=== PATIENT | female | born 1930 | race Caucasian/White ===

== ENCOUNTER 2016-04-30 11:12 | Inpatient (IN) | payer OTHER ==
[~2016-04-30] VITALS: Ht 149.9 cm; Wt 61.7 kg
[~2016-04-30 11:12] MED LIST: AMLODIPINE BESY10 M1 PO; ASPIRIN EC81 M1 PO; CRANBERRY400 M2 PO; HYDRALAZINE HC100 M1 PO; LOPRESSOR 25MG25 MG PO; LOSARTAN POTASS25 M1 PO; SIMVASTATIN20 M1 PO
--- NOTE | 2016-04-30 11:30 | ED GENERAL ADULT ---
History of Present Illness General Chief Complaint: Dyspnea (COPD, CHF, Other) Stated Complaint: BIBA FOR SOB Source: patient, family, old records Exam Limitations: no limitations Vital Signs & Intake/Output Vital Signs & Intake/Output Vital Signs Date Time Temp Pulse Resp B/P Pulse O2 O2 Flow FiO2 Ox Delivery Rate 04/30 1746 96.6 31 20 108/56 93 Nasal 4.0L Cannula 04/30 1655 32 22 116/54 95 Nasal 4.0L Cannula 04/30 1614 96.6 34 22 112/56 93 Nasal 4.0L Cannula 04/30 1543 122/62 04/30 1508 32 120/60 04/30 1440 33 16 78/50 04/30 1410 32 22 108/42 96 Room Air 04/30 1307 36 112/48 04/30 1205 32 16 132/54 99 Room Air 04/30 1130 98.4 32 16 145/74 97 Nasal 2.0L Cannula Allergies Coded Allergies: NO KNOWN ALLERGIES (02/20/12) Reconcile Medications Amlodipine Besylate 10 MG TABLET 1 TAB PO DAILY HEART/BP (Reported) Aspirin (Ecotrin*) 81 MG TABLET.DR 1 TAB PO DAILY HEART/BLOOD (Reported) Cranberry 400 MG CAPSULE 2 TAB PO DAILY SUPPLEMENT (Reported) Escitalopram Oxalate (Lexapro) 5 MG TABLET 5 MG PO DAILY ANXIETY (Reported) Hydralazine HCl 100 MG TABLET 1 TAB PO BID HEART/BP (Reported) Losartan Potassium 25 MG TABLET 1 TAB PO DAILY HEART/BP (Reported) Metoprolol Tartrate 25 MG TABLET 1 TAB PO BID HEART/BP (Reported) Simvastatin (Zocor*) 20 MG TABLET 1 TAB PO DAILY CHOLESTEROL (Reported) Triage Note: BROUGHT TO ED BY CAR, WITH FAMILY, C/ DIZZINESS, WEAKNESS, POOR APPETITE X A FEW DAYS. DENIES CHEST PAIN, SLIGHT SOB TODAY. PALE, Triage Nurses Notes Reviewed? yes HPI: Patient brought in by her grandchildren for increasing weakness and fatigue. Patient states that over the past 2 days she has been feeling worsening lightheaded. Patient denies any chest pain or shortness of breath. Patient denies any dysuria. Patient states that her symptoms worsen when she is up and moving. Patient states that yesterday she lost her balance and fell but was able to catch herself on the counter and did not fall to the ground. Patient denies hitting her head and there was no loss of consciousness Past History Travel History Traveled to [place] past 21 day No Medical History Any Pertinent Medical History? 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 No Review of Systems Review of Systems Constitutional: Reports: no symptoms. EENTM: Reports: no symptoms. Respiratory: Reports: no symptoms. Cardiovascular: Reports: no symptoms. GI: Reports: no symptoms. Genitourinary: Reports: no symptoms. Musculoskeletal: Reports: no symptoms. Skin: Reports: no symptoms. Neurological/Psychological: Reports: see HPI. Hematologic/Endocrine: Reports: no symptoms. Immunologic/Allergic: Reports: no symptoms. All Other Systems: Reviewed and Negative Physical Exam Physical Exam General Appearance: well developed/nourished, alert, awake, anxious, moderate distress Head: atraumatic, normal appearance Eyes: Bilateral: PERRL, EOMI. Ears, Nose, Throat: normal pharynx Neck: normal inspection, supple, full range of motion Respiratory: normal breath sounds, chest non-tender, no respiratory distress, lungs clear Cardiovascular: bradycardia Gastrointestinal: normal bowel sounds, soft, non-tender Back: normal inspection, normal range of motion Extremities: normal inspection, normal capillary refill, normal range of motion, no edema Neurologic/Psych: no motor/sensory deficits, awake, alert, oriented x 3, normal mood/affect Skin: intact, normal color, warm/dry Lymphatic: no anterior cervical thalia Core Measures ACS in differential dx? Yes CVA/TIA Diagnosis: No Severe Sepsis Present: No Septic Shock Present: No Progress Differential Diagnoses I considered the following diagnoses in my evaluation of the patient: [AMI, electrolyte abnormality, third-degree heart block, beta chance overdose] Plan of Care: Orders Procedure Date/time Status Admit to inpatient 04/30 1822 Active Restraint- Medical 04/30 1452 Active [place], Insertion/Removal/Asses 04/30 1347 Active CULTURE,URINE 04/30 1347 Active Add-on Test (ER Only) 04/30 1247 Active THYROID STIMULATING HORMONE 04/30 1130 Complete Telemetry/Aquaculture Farm Manager 04/30 1128 Active TROPONIN LEVEL 04/30 1128 Complete MAGNESIUM 04/30 1128 Complete COMPREHENSIVE METABOLIC PANEL 04/30 1128 Complete CBC WITHOUT DIFFERENTIAL 04/30 1128 Complete EKG 04/30 1116 Active Laboratory Tests 04/30/16 1130: Anion Gap 13, Estimated GFR 19 L, BUN/Creatinine Ratio 25.0, Glucose 118 H, Calcium 10.4 H, Magnesium 1.4 L, Total Bilirubin 1.0, AST 64 H, ALT 71 H, Alkaline Phosphatase 98, Troponin I 0.06, Total Protein 6.9, Albumin 3.7, Globulin 3.2, Albumin/Globulin Ratio 1.2, TSH 4.300 H, CBC w Diff NO MAN DIFF REQ, RBC 3.83 L, MCV 92.8, MCH 30.7, RDW 14.2, MPV 8.4, Gran % 74.8, Lymphocytes % 12.3 L, Monocytes % 11.0 H, Eosinophils % 0.5, Basophils % 1.4, Absolute Granulocytes 6.0, Absolute Lymphocytes 1.0 L, Absolute Monocytes 0.9 H, Absolute Eosinophils 0, Absolute Basophils 0.1, PUBS MCHC 33.1 Microbiology 04/30 1415 URINE ROUT: Urine Culture - RECD Diagnostic Imaging: Viewed by Me: Radiology Read. Discussed w/RAD: Radiology Read. CXR Impression: PATIENT: BLAKE BUCKLEY PRESENT AGE: 86 PATIENT ACCOUNT NO: [id number] : 29 LOCATION: [facility] ORDERING PHYSICIAN: RESHMA ESTRADA MD SERVICE DATE: 04/30/16 EXAM TYPE: RAD - XRY-PORTABLE CHEST XRAY EXAMINATION: PORTABLE CHEST 1 VIEW CLINICAL INFORMATION: CHEST PAIN. COMPARISON: 01/11/2015. TECHNIQUE: Portable frontal view of the chest was obtained. FINDINGS: Lungs are hyperinflated with chronic appearing reticular markings seen bilaterally. No superimposed focal infiltrate, effusion, or pneumothorax. There is mild central vascular prominence but no overt edema. Cardiac silhouette remains enlarged, similar to the prior study. Patient is status post sternotomy and CABG. Degenerative changes seen in the spine and shoulders. Prominent vascular calcification seen in the neck. IMPRESSION: Central vascular prominence but no overt edema. No acute process seen otherwise when compared to the prior study. DICTATED BY: DAKOTA DIEGO MD DATE/TIME DICTATED:04/30/161227 EVENT PROMOTER:JUAN DATE/TIME TRANSCRIBED:04/30/161227 CONFIDENTIAL, DO NOT COPY WITHOUT APPROPRIATE AUTHORIZATION. <Electronically signed in Other Vendor System> SIGNED BY: DAKOTA DIEGO MD 04/30/16 1238 Initial ED EK DEGREE HEART BLOCK Prior EKG: changed Rhythm Strip: BRADYCARDIA Comments: Dr. Kay notified. Called again when she began to have sinus pauses. He is coming down to evaluate. Dr Kay at bedside. Dr. Gonzáles will be in at 7 PM to put in a permanent pacemaker. Patient continues to have episodic sinus pauses lasting 610 seconds. Patient comes out of them on her own. At this point the patient needs better served staying here in the emergency department and then going to the operating room from here. Departure Departure Disposition: STILL A PATIENT Condition: Critical Clinical Impression Primary Impression: Bradycardia Secondary Impressions: Acute renal failure, Hypomagnesemia Referrals: JAYASHREE SHOEMAKER MD (PCP/Family) Departure Forms: Customer Survey General Discharge Information Admission Note Spoke With: MILAD KAY MD Documentation of Exam: Documentation of any treatments & extenuating circumstances including Concerns Regarding Discharge (functional status, medication knowledge or non-compliance, living conditions, etc.) that warrant an admission rather than observation: [ICU admission, pacer pads on, atropine at bedside, patient will need to go the OR for a pacemaker. If patient becomes more Symptomatic she may require transvenous pacing to bridge her until she has a permanent pacemaker.] Critical Care Note Critical Care Note Critical Care Time: mins: (120 MIN)
--- NOTE | 2016-04-30 11:37 | NUR ---
LABS DRAWN AND SENT BY THIS MST BLUE, SST X2, LAV X2, PINK, HOLDER
[2016-04-30 11:39] LABS: ABSOLUTE BASOPHIL COUNT 0.1 /CUMM (0.0-0.2); ABSOLUTE EOSINOPHIL COUNT 0 /CUMM (0.0-0.7); ABSOLUTE MONOCYTE COUNT 0.9 /CUMM (0.10-0.60); BASOPHIL % 1.4 % (0.0-2.0); EOSINOPHIL % 0.5 % (0-5); GRANULOCYTE % 74.8 % (42.2-75.2); HEMATOCRIT 35.5 % (37-47); MEAN CORPUSCULAR HGB 30.7 PG (27.0-31.0); MEAN CORPUSCULAR HGB CONC 33.1 G/DL (33.0-37.0); MEAN CORPUSCULAR VOLUME 92.8 FL (81.0-99.0); MEAN PLATELET VOLUME 8.4 FL (7.4-10.4); PLATELET COUNT 204 /CUMM (130-400); RBC DISTRIBUTION WIDTH 14.2 % (11.5-14.5); RED BLOOD CELL CT 3.83 /CUMM (4.20-5.40)
--- NOTE | 2016-04-30 11:39 | NUR ---
BROUGHT TO ED BY CAR, WITH FAMILY, C/ DIZZINESS, WEAKNESS, POOR APPETITE X A FEW DAYS. DENIES CHEST PAIN, SLIGHT SOB TODAY. PALE, PLACED ON MONITOR, RATE 25-40, 3RD DEGREE HEART BLOCK WITH OCCASIONAL PVC. EKG DONE ON ARRIVAL.
--- NOTE | 2016-04-30 12:04 | NUR ---
DR. KAY AT BEDSIDE, PACER PADS PLACED ON PT.
--- NOTE | 2016-04-30 12:38 | RADIOLOGY REPORT ---
EXAMINATION: PORTABLE CHEST 1 VIEW CLINICAL INFORMATION: CHEST PAIN. COMPARISON: 01/11/2015. TECHNIQUE: Portable frontal view of the chest was obtained. FINDINGS: Lungs are hyperinflated with chronic appearing reticular markings seen bilaterally. No superimposed focal infiltrate, effusion, or pneumothorax. There is mild central vascular prominence but no overt edema. Cardiac silhouette remains enlarged, similar to the prior study. Patient is status post sternotomy and CABG. Degenerative changes seen in the spine and shoulders. Prominent vascular calcification seen in the neck. IMPRESSION: Central vascular prominence but no overt edema. No acute process seen otherwise when compared to the prior study.
--- NOTE | 2016-04-30 12:44 | NUR ---
C/O PAIN IN R UPPER SHOULDER SHOULDER, BASE OF NECK. ICE PACK TO AREA.
--- NOTE | 2016-04-30 13:15 | NUR ---
HAD EPSIODE OF INCREASED WEAKNESS WTIH EYES ROLLED BACK, SINUS PAUSE NOTED ON MONITOR (4-5 SECONDS).
--- NOTE | 2016-04-30 14:05 | NUR ---
MEDICATED FOR SHOULDER AND UPPER BACK PAIN WITH TYLENOL 650 MG PO.
--- NOTE | 2016-04-30 14:06 | NUR ---
VOMITED AFTER RECEIVING IV GLUCAGON, MEDICATED WITH ZOFRAN 4 MG IV.
--- NOTE | 2016-04-30 14:15 | NUR ---
DIGGS CATHETER INSERTED WITHOUT DIFFICULTY, DRAINING YELLOW URINE M (45 ML) UA, CULTURE SENT.
--- NOTE | 2016-04-30 14:27 | NUR ---
ANXIOUS, RESTLESS, C/O R FOOT CRAMPING. MEDICATED WITH ATIVAN .5 MG IV.
--- NOTE | 2016-04-30 14:40 | NUR ---
INCREASINGLY AGITATED, PULLING ON IV TUBING AND DIGGS. DR. ESTRADA TO BEDSIDE. # [address] ESTRADA. NS BOLUS RUNNING.
--- NOTE | 2016-04-30 14:45 | NUR ---
MEDICATED WITH ATROPINE .5 MG IV AND GLUCAGON 1 MG IV. RESTLESS WITH CONFUSED CONVERSATION.
--- NOTE | 2016-04-30 15:04 | NUR ---
SOFT RESTRAINTS APPLIED DUE TO AGITATION AND PULLING ON LINES.
[2016-04-30] MEDS ORDERED: LEXAPRO5 M1 PO (15:36)
--- NOTE | 2016-04-30 15:52 | Cons- Cardiology ---
General Information and HPI Consulting Request Date of Consult: 04/30/16 Requested By: Dr. Tamayo Reason for Consult: Third degree heart block History of Present Illness: The patient is an 86-year-old female with history of coronary artery disease, status post CABG, hypertension, and renal insufficiency. She is followed in the office by Dr. Gonzáles. She was brought to the hospital by her grandchildren for increasing weakness and fatigue 2 days. She notes intermittent lightheadedness over the past few days. The symptoms are worse when she is an relating. She had some dizziness and presyncope yesterday, however she has not had any syncope or loss of consciousness. No shortness of breath. No palpitations. No nausea or vomiting. No diaphoresis. Allergies/Medications Allergies: Coded Allergies: NO KNOWN ALLERGIES (02/20/12) Home Med List: Amlodipine Besylate (Amlodipine) 10 MG TAB 1 TAB PO DAILY HEART (Reported) Aspirin (Ecotrin) 81 MG ECT 1 TAB PO DAILY HEART HEALTH (Reported) Cranberry 400 MG TAB 2 TAB PO DAILY SUPLLEMENT (Reported) Escitalopram Oxalate (Lexapro) 5 MG TABLET 5 MG PO DAILY ANXIETY (Reported) Hydralazine Hydrochloride (Hydralazine) 100 MG TAB 1 TAB PO BID HEART ( Reported) Losartan Potassium 25 MG TAB 1 TAB PO DAILY HEART (Reported) Metoprolol Tartrate (Lopressor) 25 MG TAB 1 TAB PO BID HEART (Reported) Simvastatin 20 MG TAB 1 TAB PO DAILY CHOLESTEROL (Reported) Review of Systems Review of Systems: No rash. No tremor. No fever. No chills. All other systems were reviewed, and were noted to be negative. 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 Surgical History Surgical History: non-contributory Family History Relations & Conditions If Any: BROTHER Coronary artery disease Psychosocial History ETOH Use: denies use Illicit Drug Use: denies illicit drug use Exam & Diagnostic Data Vital Signs and I&O Vital Signs Date Time Temp Pulse Resp B/P Pulse O2 O2 Flow FiO2 Ox Delivery Rate 04/30 1543 122/62 04/30 1508 32 120/60 04/30 1440 33 16 78/50 04/30 1410 32 22 108/42 96 Room Air 04/30 1307 36 112/48 04/30 1205 32 16 132/54 99 Room Air 04/30 1130 98.4 32 16 145/74 97 Nasal 2.0L Cannula Intake & Output 04/30 1600 04/30 0800 04/30 0000 04/29 1600 04/29 0800 04/29 0000 Intake Total 1010 Output Total Balance 1010 Intake, IV 1010 Patient 110 lb Weight Physical Exam: Gen: The patient is in no acute distress HEENT: Normal nose, ears, and oropharynx. Pupils equal bilaterally. Conjunctiva normal. Neck: Supple with no JVD, no masses, and no thyromegaly Lungs: Clear to auscultation with normal respiratory effort Heart: Irregular, bradycardic, S1, S2, 2/6 systolic murmur. No peripheral edema , 2+ pulses in the lower extremities bilaterally Abdomen: Soft, nontender, no masses. No hepatomegaly. No splenomegaly Extremities: No clubbing or cyanosis. Normal muscle strength in the upper and lower extremities Skin: Normal skin turgor with no skin ulcers or lesions noted. Neuro: Cranial nerves intact. Sensation intact Psych: Alert and oriented 3 with appropriate affect Labs/Kyle Results: Laboratory Tests 04/30 1130 Chemistry Sodium (137 - 145 mmol/L) 134 L Potassium (3.5 - 5.1 mmol/L) 4.3 Chloride (98 - 107 mmol/L) 101 Carbon Dioxide (22 - 30 mmol/L) 19 L Anion Gap (5 - 16) 13 BUN (7 - 17 mg/dL) 60 H Creatinine (0.5 - 1.0 mg/dL) 2.4 H Estimated GFR (>60 ml/min) 19 L BUN/Creatinine Ratio (7 - 25 %) 25.0 Glucose (65 - 99 mg/dL) 118 H Calcium (8.4 - 10.2 mg/dL) 10.4 H Magnesium (1.6 - 2.3 mg/dL) 1.4 L Total Bilirubin (0.2 - 1.3 mg/dL) 1.0 AST (14 - 36 U/L) 64 H ALT (9 - 52 U/L) 71 H Alkaline Phosphatase (<127 U/L) 98 Troponin I (< 0.11 ng/ml) 0.06 Total Protein (6.3 - 8.2 g/dL) 6.9 Albumin (3.5 - 5.0 g/dL) 3.7 Globulin (1.9 - 4.2 gm/dL) 3.2 Albumin/Globulin Ratio (1.1 - 2.2 %) 1.2 TSH (0.270 - 4.200 uIU/mL) 4.300 H Hematology CBC w Diff NO MAN DIFF REQ WBC (4.8 - 10.8 /CUMM) 8.0 RBC (4.20 - 5.40 /CUMM) 3.83 L Hgb (12.0 - 16.0 G/DL) 11.8 L Hct (37 - 47 %) 35.5 L MCV (81.0 - 99.0 FL) 92.8 MCH (27.0 - 31.0 PG) 30.7 RDW (11.5 - 14.5 %) 14.2 Plt Count (130 - 400 /CUMM) 204 MPV (7.4 - 10.4 FL) 8.4 Gran % (42.2 - 75.2 %) 74.8 Lymphocytes % (20.5 - 51.1 %) 12.3 L Monocytes % (1.7 - 9.3 %) 11.0 H Eosinophils % (0 - 5 %) 0.5 Basophils % (0.0 - 2.0 %) 1.4 Absolute Granulocytes (1.4 - 6.5 /CUMM) 6.0 Absolute Lymphocytes (1.2 - 3.4 /CUMM) 1.0 L Absolute Monocytes (0.10 - 0.60 /CUMM) 0.9 H Absolute Eosinophils (0.0 - 0.7 /CUMM) 0 Absolute Basophils (0.0 - 0.2 /CUMM) 0.1 PUBS MCHC (33.0 - 37.0 G/DL) 33.1 Diagnostic Data EKG Results EKG tracing is independently reviewed, and reveals third degree heart block with heart rate in the 30s CXR Results Central vascular prominence but no overt edema. No acute process seen otherwise when compared to the prior study. Other Results Echocardiogram 11/09/09: Assessment/Plan Assessment/Plan The patient is an 86-year-old female with history of CAD, status post CABG, hypertension, renal insufficiency who presents with recent fatigue and lightheadedness. She is found to be in third-degree AV block. Of note, she takes metoprolol, and she took her last dose of metoprolol this morning. She is hemodynamically stable and she currently denies any lightheadedness. She reports that she is currently feeling well other than back pain. Plan: * Glucagon to reverse the effect of metoprolol * Admit to ICU * Monitor closely with transcutaneous pacing pads applied. If symptomatic. A cardiac develops, then continues pacing will be initiated * Nothing by mouth * Permanent pacemaker to be placed later today by Dr. Gonzáles. Consult Acknowledgment - Thank you for your consult request.
--- NOTE | 2016-04-30 16:02 | NUR ---
PT UNABLE TO STAY STILL FOR CAT SCAN, POSTPONE CT PER MD NATALIE AT THIS TIME.
--- NOTE | 2016-04-30 16:14 | NUR ---
PT REMAINES IN MEDICAL RESTRAINTS DUE TO AGITATION, CONFUSION, RESTLESSNESS. 2 NEW IV ESTABLISHED- LH G22, RH G20. NS INFUSING. MANUAL BP 112/56 AT THIS TIME. O2 TITRATED UP TO 4L NC O2SAT 93%, MD NATALIE MADE AWARE. SITTER AT BEDSIDE.
[2016-04-30] MEDS ORDERED: METOPROLOL TART25 M1 PO (16:42)
[2016-04-30] MEDS ORDERED: ZOCOR20 M1 PO (16:42)
--- NOTE | 2016-04-30 17:02 | NUR ---
RESTRAINTS CHEKED, CIRCULATION AND SKIN WNL, NO RESP DISTRESS NOTED. PT RESTLESS, CONFUSED. SITTER AND FAMILY AT BEDSIDE.
--- NOTE | 2016-04-30 17:49 | NUR ---
PT STUDENT AT [facility] FOR RE-EVALUATION. BP 108/56 MANUALLY, NATALIE. AWARE, 4TH LITER OF NS INFUSING PER EMAR. PT REMAINES IN MEDICAL SOFR RESTRAINT FOR RESTLESSNESS. SKIN AND CIRCULATION CHECKED, NO RESP DISTRESS. FAMILY AND SITTER AT BEDSIDE.
--- NOTE | 2016-04-30 18:29 | History & Physical ---
ROCIO ZIMMERMAN,[facility] 04/30/16 1829: General Information and HPI Source of Information: family Exam Limitations: unable to give history History of Present Illness: This is a 86-year-old female with past medical history of hypertension, hyperlipidemia, coronary artery disease status post triple bypass brought into the ER by her son for complaints of dizziness and weakness for the past couple of days. Patient was sedated and unable to give history she was taken from the second MrJasmin, As per patient son, she has been in her usual state of health upuntil last sunday. She lives by herself and at baseline is fully functional, doing her daily chores by herself w/o any difficulty. She cooks, cleans etc by herself w/o any assistance. As per son, he visits her almost everyday, last sunday when he visited her, she was complaining of nausea, vomiting and diarrhea>> yesterday nausea, vomiting subsided and she was able to eat half a sandwich but she continued to have diarrhea, today she was complaining of abdominal discomfort and getting sweaty and having chills, extreme fatigue and diziness and thats when family decided to bring her to ER for further evaluation. Son also mentioned that his mother mentioned that she tripped but was able to control her body by holding on to the counter, after which son says her right shoulder has been sore. She has never smoked, no alcohol consumption, no illicit drug abuse. She follows Dr. Gonzáles as her batch freezer, Dr. Garcia as her primary care physician, and Randall Rojo MD as her teacher lip reading. Last visit with Dr. Gonzáles was 3 weeks ago and was told that everything was normal. Allergies/Medications Allergies: Coded Allergies: NO KNOWN ALLERGIES (02/20/12) Home Med list Amlodipine Besylate 10 MG TABLET 1 TAB PO DAILY HEART/BP (Reported) Aspirin (Ecotrin*) 81 MG TABLET. 1 TAB PO DAILY HEART/BLOOD (Reported) Cranberry 400 MG CAPSULE 2 TAB PO DAILY SUPPLEMENT (Reported) Escitalopram Oxalate (Lexapro) 5 MG TABLET 5 MG PO DAILY ANXIETY (Reported) Hydralazine HCl 100 MG TABLET 1 TAB PO BID HEART/BP (Reported) Losartan Potassium 25 MG TABLET 1 TAB PO DAILY HEART/BP (Reported) Metoprolol Tartrate 25 MG TABLET 1 TAB PO BID HEART/BP (Reported) Simvastatin (Zocor*) 20 MG TABLET 1 TAB PO DAILY CHOLESTEROL (Reported) Compliance With Home Meds: GOOD Past History Travel History Traveled to [place] past 21 day No Medical History Neurological: NONE EENT: NONE Cardiovascular: hypertension, hyperlipidemia, TRIPLE BYPASS Respiratory: NONE Gastrointestinal: NONE Hepatic: NONE Renal: NONE Musculoskeletal: NONE Psychiatric: NONE Endocrine: NONE Blood Disorders: NONE Cancer(s): NONE HYDRAMATIC SPECIALIST/Reproductive: NONE Surgical History Surgical History: non-contributory Past Family/Social History Family History Relations & Conditions if any BROTHER Coronary artery disease Psychosocial History Where do you live? Home Who Do You Live With? self Services at Home: None Primary Language: Persian Smoking Status: Never Smoked ETOH Use: denies use Illicit Drug Use: denies illicit drug use Functional Ability ADLs Independent: dressing, eating, toileting, bathing. Ambulation: independent IADLs Independent: shopping, housework, finances, food prep, telephone, transportation , medication admin. Review of Systems Review of Systems Constitutional: Reports: see HPI. Exam & Diagnostic Data Last 24 Hrs of Vital Signs/I&O Vital Signs Date Time Temp Pulse Resp B/P Pulse O2 O2 Flow FiO2 Ox Delivery Rate 04/30 1920 96.4 31 28 110/54 93 Nasal 4.0L Cannula 04/30 1852 30 28 116/56 93 Nasal 4.0L Cannula 04/30 1823 96.6 34 26 120/58 94 Nasal 4.0L Cannula 04/30 1746 96.6 31 24 108/56 93 Nasal 4.0L Cannula 04/30 1655 32 22 116/54 95 Nasal 4.0L Cannula 04/30 1614 96.6 34 22 112/56 93 Nasal 4.0L Cannula 04/30 1543 122/62 04/30 1508 32 120/60 04/30 1440 33 16 78/50 04/30 1410 32 22 108/42 96 Room Air 04/30 1307 36 112/48 04/30 1205 32 16 132/54 99 Room Air 04/30 1130 98.4 32 16 145/74 97 Nasal 2.0L Cannula Intake & Output 04/30 1600 04/30 0800 04/30 0000 Intake Total 1010 Output Total Balance 1010 Intake, IV 1010 Patient 49.895 kg Weight Physical Exam General Appearance sedated Cardiovascular bradycardia Lungs Clear to Auscultation Abdomen Normal Bowel Sounds, Soft Neurological unable to follow commands Extremities No Clubbing, No Cyanosis, No Edema Last 24 Hrs of Labs/Kyle: Laboratory Tests 04/30/16 1931: PT Pending, INR Pending, APTT Pending 04/30/16 1130: Anion Gap 13, Estimated GFR 19 L, BUN/Creatinine Ratio 25.0, Glucose 118 H, Calcium 10.4 H, Magnesium 1.4 L, Total Bilirubin 1.0, AST 64 H, ALT 71 H, Alkaline Phosphatase 98, Troponin I 0.06, Total Protein 6.9, Albumin 3.7, Globulin 3.2, Albumin/Globulin Ratio 1.2, TSH 4.300 H, CBC w Diff NO MAN DIFF REQ, RBC 3.83 L, MCV 92.8, MCH 30.7, RDW 14.2, MPV 8.4, Gran % 74.8, Lymphocytes % 12.3 L, Monocytes % 11.0 H, Eosinophils % 0.5, Basophils % 1.4, Absolute Granulocytes 6.0, Absolute Lymphocytes 1.0 L, Absolute Monocytes 0.9 H, Absolute Eosinophils 0, Absolute Basophils 0.1, PUBS MCHC 33.1 Microbiology 04/30 1415 URINE ROUT: Urine Culture - RECD Diagnostic Data EKG Results EKG tracing is independently reviewed, and reveals third degree heart block with heart rate in the 30s CXR Results Central vascular prominence but no overt edema. No acute process seen otherwise when compared to the prior study. Other Results Echocardiogram 11/09/09: Assessment/Plan Assessment: This is a 86-year-old female with past medical history of hypertension, hyperlipidemia, coronary artery disease status post triple bypass brought into the ER by her son for complaints of dizziness and weakness for the past couple of days. Titers upon presentation temperature 98.4, blood 32, his GERD rate 16, blood pressure 145/74, pulse ox 97 on 2 L cannula oxygen. Pertinent labs H&H 11.8 and 35.5, H&H 60 and 2.4, initial EKG showed third- degree heart block following bradycardia, patient continued to have episodic sinus positive lasting 6-10 seconds though patient was able to come out of 10 by her own. Patient admitted to ICU and monitor for the following conditions: Third degree heart block: Continous cardiac monitoring Patient to get permanent pacemaker by . Will get PT/PTT prior surgical procedure Psych meds held till patient more awake. Cardiology on board, will follow recs. Hypertension: Will hold off blood pressure medications as blood pressure towards lower side, will restart when BP stable. Hyperlipidemia: Will cont home dose of simvastatin. Acute Kidney injury: Likely secondary to dehydration, creatnine level 2.4, baseline 1.4. IV hydration , will follow up repeat labs DVT prophylaxis Patient is FULL CODE As Ranked By This Provider Problem List: 1. Generalized weakness 2. Bradycardia 3. Acute renal failure Core Measures/Miscellaneous Acute Coronary Syndrome ACS Diagnosis: No Cerebrovascular Accident CVA/TIA Diagnosis: No Congestive Heart Failure CHF Diagnosis: No Venous Thromboembolism VTE Risk Factors: Acute medical illness, Age > 40 No [facility] VTE prophylaxis d/t: No contraindications No VTE Pharm Prophylaxis d/t: No contraindications VTE Diagnosis: No VTE Type: NONE VTE Confirmed by (Test): NONE Severe Sepsis Severe Sepsis Present: No Septic Shock Septic Shock Present: No Miscellaneous Documentation Attending Case Discussed With: Nivia Primary Care Physician: SAHARA [facility]MANA.[facility] Patient sees these Specialists Dr. Gonzáles Match Marker Configuration Manager Level of Patient Care: Critical Care (CRI) ZAC RODRIGUEZ 04/30/16 1573: General Information and HPI MD Statement: I have seen and personally examined BLAKE BUCKLEY and documented this H&P. The patient is a 86 year old F who presented with a patient stated chief complaint of []. Resident Review Statement Resident Statement: examined this patient Other Findings: Patient is 86 year old female with PMH of hypertension, CAD, status post bypass surgery, renal insufficency was brought by family with chief complain of dizziness and lightheadedness. Per Son, patient lives alone and is fairly independent in her ADLs. She started to complain of lightheadedness and dizziness 3 weeks ago. Nicolas the son who is also the POA calls her every day to see how she has been doing. Patient has been in her usual state of health until04/28 when she developed diarrhea and vomiting. It resolved the next day however, she continued to feel dizzy and could not get up from her bed this morning. Patient on examination was lethargic (she got ativen 0.5 mg IV earlier) so much of the hstory was obtained by the son at bedside. Patient remained bradycardiac with a transcutaneous pacer pads. Labs and vitals as above Imaging done in hospital CXR 04/30 Central vascular prominence but no overt edema. No acute process seen otherwise when compared to the prior study. Problem list 1. third degree heart block 2. Hypertension 3. hyperlipidemia 4. Renal insufficency Assessment and Plan Plan is that patient will get permanent pacemaker today by dr. Gonzáles. Patient came in with a heart rate of 32. BP 110/54, will hold her antihypertensives now, consider restaring in am if blood pressure tolerates. Patient has JUNIOR on CKD, please consult nephro ( dr. Saucedo) in am Will start her on gentle hydration today at 75 cc NS/ hr DVT ppx Mechanical ALPS, will avoid SC heprin for now as he is due to get pacemaker, please recheck with attending after the procedure Patient is full code. The Son Nicolas is the POA. RAHUL ZIMMERMAN,MILAD 05/01/16 0055: Attending Review Statement Attending Statement Attending MD Statement: examined this patient, discuss w/resident/PA/[employer]UST[employer]MIC[employer] SUPERVISOR, agreed w/resident/PA/INDUSTRI[employer]MICALS SUPERVISOR, discussed with family, reviewed EMR data (avail), discussed with nursing, reviewed images, amended to note Attending Assessment/Plan: Agree with house staff note. See consult not for further details. Date of service 05/31/16
--- NOTE | 2016-04-30 18:37 | NUR ---
MD SALOME WILL BE IN AT 2000 BY RN CO PILOT.
--- NOTE | 2016-04-30 19:00 | NUR ---
HOUSE STAFF AT BEDSIDE FOR PT EVAL.
--- NOTE | 2016-04-30 19:32 | NUR ---
BLOOD DRAWN AND SNET TO LAB 1BLUE
--- NOTE | 2016-04-30 19:39 | NUR ---
DR MCMAHON AT BEDSIDE FOR EVAL.
[2016-04-30 19:57] LABS: PT 12.8 SEC (9.4-12.5); PTT 24 SEC (25-37)
[2016-04-30 21:50] LABS: ABSOLUTE BASOPHIL COUNT 0.1 /CUMM (0.0-0.2); ABSOLUTE EOSINOPHIL COUNT 0 /CUMM (0.0-0.7); ABSOLUTE GRANULOCYTE CT 9.3 /CUMM (1.4-6.5); ABSOLUTE LYMPH COUNT 0.7 /CUMM (1.2-3.4); ABSOLUTE MONOCYTE COUNT 0.7 /CUMM (0.10-0.60); BASOPHIL % 0.7 % (0.0-2.0); EOSINOPHIL % 0.1 % (0-5); GRANULOCYTE % 86.4 % (42.2-75.2); MEAN CORPUSCULAR HGB 30.3 PG (27.0-31.0); MEAN CORPUSCULAR HGB CONC 32.2 G/DL (33.0-37.0); MEAN CORPUSCULAR VOLUME 94.2 FL (81.0-99.0); MEAN PLATELET VOLUME 8.6 FL (7.4-10.4); PLATELET COUNT 150 /CUMM (130-400); RBC DISTRIBUTION WIDTH 13.9 % (11.5-14.5); WHITE BLOOD CELL COUNT 10.7 /CUMM (4.8-10.8)
[2016-05-01 01:00] VITALS: BP 128/60
--- NOTE | 2016-05-01 01:06 | RADIOLOGY REPORT ---
EXAMINATION: XR PORTABLE CHEST CLINICAL INFORMATION: Aspiration. ET tube placement. COMPARISON: None TECHNIQUE: Portable AP view of the chest was obtained. FINDINGS: The tip of endotracheal tube is located 5.1 cm above the elvis. Multiple cardiac leads overlie chest. There is a 2 chamber pacing device in the right pectoral region with leads terminating within the right atrium and right ventricle. Sternotomy wires are noted. There are interstitial opacities involving both lungs with a perihilar and lower lobe predominant distribution. There are ill-defined bibasilar opacities that may represent a manifestation of atelectasis or consolidative disease. The cardiac silhouette is enlarged but unchanged from prior imaging. Upper media cells contours are stable. No acute osseous finding. IMPRESSION: Endotracheal tube terminates 5.1 cm above the elvis. Interstitial pulmonary edema. Bibasilar opacities may represent a manifestation of atelectasis and/or consolidative disease. A right pectoral pacemaker has been placed.
--- NOTE | 2016-05-01 03:16 | NUR ---
04/30 2305 PATIENT RECEIVED FROM OR INTO CRCU #17 FOR PACU CARE- SEE PACU SHEET 05/01 0100 PATIENT AROUSABLE TO NAME, TRACKS WITH GAZE, PUPILS EQUAL AT 5MM AND REACTIVE TO LIGHT, SCLERAL EDEMA PRESENT, SKIN PALE, WARM AND DRY, SUPERVISOR LAUNDRY PACED RHYTHYM, HEART RATE 70'S TO 80/MIN, NO ECTOPY NOTED, RIGHT CHEST DRESSING WITH BOTTOM THIRD DARK RED DRAINAGE, LEFT CHEST DRESSING CLEAN, DRY AND INTACT, ETT IN PLACE AND TO VENTILATOR WITH FIO2 60%, BREATHE SOUNDS CLEAR, ETS PRN WITH SMALL AMTS DARK BROWNISH SECRETIONS OBTAINED, OGT TO LOW INTERMITTENT WALL SUCTION, ABDOMEN DISTENDED BUT SOFT, NO AUDIBLE BS, LEFT RADIAL ADAIR INTACT- GOOD ARTERIAL WAVEFORM, DIGGS TO GRAVITY DRAINAGE, PATIENT SEENN TO MOVE ALL 4 EXTREMITIES BUT DOES NOT DO SO ON COMMAND, FREQUENTLY ORIENTED TO SURROUNDINGS/CIRCUMSTANCES 022 PATIENT INCREASINGLY AWAKE- FIGHTING VENTILATOR AND CAUSING O2 SAT TO DECREASE TO 90%, PULLING AT RESTRAINTS, VERBAL REASSURANCES INEFFETIVE- DR PARIS NOTIFIED AND PATIENT TO RECEIVE ONE TIME ATIVAN DOSE
[2016-05-01 05:05] LABS: ABSOLUTE BASOPHIL COUNT 0 /CUMM (0.0-0.2); ABSOLUTE EOSINOPHIL COUNT 0 /CUMM (0.0-0.7); ABSOLUTE GRANULOCYTE CT 13.1 /CUMM (1.4-6.5); ABSOLUTE LYMPH COUNT 0.3 /CUMM (1.2-3.4); ABSOLUTE MONOCYTE COUNT 0.9 /CUMM (0.10-0.60); BASOPHIL % 0.1 % (0.0-2.0); EOSINOPHIL % 0 % (0-5); GRANULOCYTE % 91.7 % (42.2-75.2); HEMATOCRIT 32.2 % (37-47); MEAN CORPUSCULAR HGB 30.8 PG (27.0-31.0); MEAN CORPUSCULAR HGB CONC 32.9 G/DL (33.0-37.0); MEAN CORPUSCULAR VOLUME 93.6 FL (81.0-99.0); MEAN PLATELET VOLUME 8.7 FL (7.4-10.4); PLATELET COUNT 159 /CUMM (130-400); RBC DISTRIBUTION WIDTH 13.5 % (11.5-14.5); RED BLOOD CELL CT 3.45 /CUMM (4.20-5.40); WHITE BLOOD CELL COUNT 14.3 /CUMM (4.8-10.8)
--- NOTE | 2016-05-01 06:22 | NUR ---
VS STABLE, PACED RHYTHYM WITH INFREQUENBT PVC NOTED, PATIENT MORE AWAKE, MOVING ALL 4 EXTREMITIES WITH EQUAL STRENGTH- FOLLOWS SIMPLE COMMANDS AT TIMES, SLEEPING IN NAPS, AWAITING AM MD ROUNDS
--- NOTE | 2016-05-01 07:17 | PN- Resident CRCU ---
Subjective HPI/CRCU Issues: Patient seen and examined this morning. She is lying in bed in no acute distress, intubated, over night went to OR for pacemaker placement last night, where she coded, apparetly she had a transient episode of prolonged bradycardia and tranisent episode of cardio-pulmonary arrest, she was thus intubated in OR. Patient started on Unasyn, sputum cultures ordered, holding off on her blood pressure medication for now. Objective Vital Signs & I&O Last 8 Hrs of Vitals and I&O: Laboratory Tests 05/01/16 1010: pH 7.48 H, pCO2 30 L, pO2 72 L, HCO3 22, ABG O2 Sat (Measured) 94.0 L, P-50 (Temp Corrected) N, Carboxyhemoglobin 0.1 L, O2 Concentration % 40%, Respiration Rate 24, O2 Delivery Method VENT, Vent Mode CPAP/PSV TRIAL, Expiratory Pressure 5, Tidal Volume 323, Pressure Support 6, Phlebotomy Draw Site LEFT A-LINE 05/01/16 0948: Lactic Acid 3.2 H 05/01/16 0650: Lactic Acid 3.5 H 05/01/16 0415: Anion Gap 14, Estimated GFR 21 L, BUN/Creatinine Ratio 23.2, Calcium 8.6, Phosphorus 4.4, Magnesium 1.8, CBC w Diff MAN DIFF ORDERED, RBC 3.45 L, MCV 93.6, MCH 30.8, RDW 13.5, MPV 8.7, Gran % 91.7 H, Lymphocytes % 2.1 L, Monocytes % 6.1, Eosinophils % 0, Basophils % 0.1, Absolute Granulocytes 13.1 H , Segmented Neutrophils 83 H, Band Neutrophils 9 H, Absolute Lymphocytes 0.3 L, Lymphocytes 3 L, Monocytes 5, Absolute Monocytes 0.9 H, Absolute Eosinophils 0, Absolute Basophils 0, Platelet Estimate ADEQUATE, Polychromasia 1 +, Poikilocytosis 1+, Ovalocytes 1+, PUBS MCHC 32.9 L, Fld Total RBCs Counted 100 05/01/16 0055: pH 7.36, pCO2 26 L, pO2 72 L, HCO3 14 L, ABG O2 Sat (Measured) 93.0 L, P-50 (Temp Corrected) N, Carboxyhemoglobin 0.3 L, O2 Concentration % .60, Respiration Rate 20, O2 Delivery Method VENT, Vent Mode A/C, Expiratory Pressure 5, Tidal Volume 500, Phlebotomy Draw Site [place] 04/30/16 2340: Anion Gap 19 H, Estimated GFR 21 L, Glucose 126 H, Lactic Acid 9.4 H, Calcium 9.0, Phosphorus 5.9 H, Magnesium 1.9, Total Bilirubin 1.1, AST 269 H, ALT 175 H, Albumin 3.0 L 04/30/165: pH 7.15 *L, pCO2 45, pO2 255 H, HCO3 15 L, ABG O2 Sat (Measured) 98.0, Carboxyhemoglobin 0.3 L, O2 Concentration % 100%, O2 Delivery Method OR/ANES, Phlebotomy Draw Site [place] 04/30/16 2144: CBC w Diff NO MAN DIFF REQ, RBC 3.30 L, MCV 94.2, MCH 30.3, RDW 13.9, MPV 8.6, Gran % 86.4 H, Lymphocytes % 6.4 L, Monocytes % 6.4, Eosinophils % 0.1, Basophils % 0.7, Absolute Granulocytes 9.3 H, Absolute Lymphocytes 0.7 L, Absolute Monocytes 0.7 H, Absolute Eosinophils 0, Absolute Basophils 0.1, PUBS MCHC 32.2 L 04/30/162139: pH 7.02 *L, pCO2 44, pO2 227 H, HCO3 11 L, ABG O2 Sat (Measured) 98.0, Carboxyhemoglobin 0.3 L, O2 Concentration % 100%, O2 Delivery Method OR/ANES, Phlebotomy Draw Site [place] 04/30/16 1931: PT 12.8 H, INR 1.22 H, APTT 24 L Microbiology 05/01 938 LOWER RESP: Respiratory Culture - COLB 05/01 938 LOWER RESP: Gram Stain - COLB 05/01 934 LOWER RESP: Respiratory Culture - CAN Cancelled: DUPLICATE 05/01 934 LOWER RESP: Gram Stain - CAN Cancelled: DUPLICATE 05/01 44 LOWER RESP: Respiratory Culture - RES 05/01 44 LOWER RESP: Gram Stain - RES 05/01 29 UPPER RESP: Surveillance Culture - RECD 05/01 29 GI: Surveillance Culture - RECD 04/30 1415 URINE ROUT: Urine Culture - RES Vital Signs Date Time Temp Pulse Resp B/P Pulse O2 O2 Flow FiO2 Ox Delivery Rate 05/01 1200 93 Nasal 4.0L Cannula 05/01 0916 40 05/01 0801 45 05/01 0800 98 Ventilator 45% 05/01 0800 98.7 65 30 112/60 98 Ventilator 45% 05/01 0625 60 05/01 0400 95 Ventilator 60% 05/01 0318 60 05/01 0100 96.6 80 20 128/60 94 Ventilator 60% 05/01 0100 94 Ventilator 60% 05/01 0034 50 05/01 0033 100 04/30 2320 100 04/30 1920 96.4 31 28 110/54 93 Nasal 4.0L Cannula 04/30 1852 30 28 116/56 93 Nasal 4.0L Cannula 04/30 1823 96.6 34 26 120/58 94 Nasal 4.0L Cannula 04/30 1746 96.6 31 24 108/56 93 Nasal 4.0L Cannula 04/30 1655 32 22 116/54 95 Nasal 4.0L Cannula 04/30 1614 96.6 34 22 112/56 93 Nasal 4.0L Cannula 04/30 1543 122/62 04/30 1508 32 120/60 04/30 1440 33 16 78/50 04/30 1410 32 22 108/42 96 Room Air Intake & Output 05/01 1600 05/01 0800 05/01 0000 Intake Total 361 Output Total 305 Balance 56 Intake, IV 361 Number 0 Bowel Movements Output, 35 Gastric Drainage Output, Urine 270 Patient 62.199 kg Weight Exam General Appearance: well developed/nourished Head: atraumatic Respiratory: normal breath sounds Cardiovascular: regular rate/rhythm Gastrointestinal: normal bowel sounds Extremities: normal inspection, no edema Current Medications: Current Medications Sig/Brandon Start time Last Medication Dose Route Stop Time Status Admin Acetaminophen 650 MG Q8P PRN 04/30 2014 AC PO Ampicillin Sodium/ 1,500 MG Q12 05/01 1000 AC Sulbactam Sodium IV Sodium Chloride 100 ML Ampicillin Sodium/ 1,500 MG Q6 05/01 0843 DC 05/01 Sulbactam Sodium IV 0850 Sodium Chloride 100 ML Ampicillin Sodium/ 1,500 MG Q12 04/30 2330 DC 05/01 Sulbactam Sodium IV 0146 Sodium Chloride 100 ML Atropine Sulfate 0.5 MG ONE ONE 04/30 1445 DC 04/30 IV 04/30 1446 1445 Dextrose/Sodium 1,000 ML Q20H 05/01 1000 AC 05/01 Chloride IV 0957 Furosemide 40 MG ONCE ONE 05/01 0845 DC 05/01 IV 05/01 0846 0852 Glucagon 0 .STK-MED ONE 04/30 1446 DC .ROUTE Glucagon 1 MG ONCE ONE 04/30 1445 DC 04/30 N/A 1 UNIT IV 04/30 1446 1445 Heparin Sodium 5,000 UNIT Q8 05/01 1400 AC 05/01 (Porcine) SC 1334 Lorazepam 1 MG ONCE ONE 05/01 0230 DC 05/01 IV 05/01 0231 0233 Lorazepam 0 .STK-MED ONE 04/30 1421 DC .ROUTE Lorazepam 0.5 MG ONCE ONE 04/30 1415 DC 04/30 IV 04/30 1416 1427 Magnesium Sulfate 1 GM Q2H 04/30 1230 DC 04/30 Dextrose/Water 100 ML IV 04/30 1629 1320 Ondansetron HCl 4 MG ONCE ONE 04/30 1400 DC 04/30 IV 04/30 1401 1350 Ondansetron HCl 0 .STK-MED ONE 04/30 1351 DC .ROUTE Pantoprazole Sodium 40 MG DAILY 05/01 1000 AC 05/01 IV 0852 Potassium Chloride 10 MEQ Q1H 05/01 0800 DC 05/01 IV 05/01 0901 0845 Sodium Chloride 1,000 ML Q13H 04/30 2015 DC 05/01 IV 0850 Sodium Chloride 1,000 ML BOLUS ONE 04/30 1800 DC 04/30 IV 04/30 1859 1749 Sodium Chloride 1,000 ML BOLUS ONE 04/30 1445 DC 04/30 IV 04/30 1544 1445 Sodium Chloride 1,000 ML ONCE ONE 04/30 1400 DC 04/30 IV 04/30 2039 1350 Antibiotics Antibiotic: unasyn Day #: 1 IV/PO? IV Impression/Plan Impression/Problem List Impression: This is a 86-year-old female with past medical history of hypertension, hyperlipidemia, coronary artery disease status post triple bypass brought into the ER by her son for complaints of dizziness and weakness for the past couple of days. Vitals upon presentation temperature 98.4, blood 32, his GERD rate 16, blood pressure 145/74, pulse ox 97 on 2 L cannula oxygen. Pertinent labs H&H 11.8 and 35.5, H&H 60 and 2.4, initial EKG showed third- degree heart block following bradycardia, patient continued to have episodic sinus positive lasting 6-10 seconds though patient was able to come out of 10 by her own. Patient admitted to ICU and monitor for the following conditions: Respiratory/CVS/Infectious disease: Acute respiratory failure leading to intubation in setting of Third degree heart block requiring pacemaker: Upon admission initial EKG showed third-degree heart block following bradycardia. She received glucagon to reverse effect of metoprolol. Went to OR for pacemaker placement last night, where she coded, apparetly she had a transient episode of prolonged bradycardia and tranisent episode of cardio- pulmonary arrest, she was thus intubated in OR. Details of event not available in chart as of now. Cardiology on board, will follow recs. Aspiration Pneumonia: Started on IV unasyn, will follow sputum and blood cx Hypertension: Will hold off blood pressure medications as blood pressure towards lower side, will restart when BP stable. Hyperlipidemia: Will cont home dose of simvastatin. Renal: Acute Kidney injury on CKD: Likely secondary to dehydration, creatnine level 2.4>>2.2, baseline 1.4. IV hydration , will follow up repeat labs. losartan on hold. DVT prophylaxis Patient is FULL CODE Problem List: 1. Acute renal failure 2. Bradycardia 3. Generalized weakness Pain Ratin Tomorrow's Labs & Rationales: icu budle cbc Plan DVT/Prophylaxis: pharmacological
[2016-05-01 08:00] VITALS: BP 112/60
--- NOTE | 2016-05-01 08:52 | RADIOLOGY REPORT ---
EXAMINATION:\H\ \N\XR INTRAOPERATIVE FLUOROSCOPY/CHEST CLINICAL INFORMATION: Pacemaker placement. COMPARISON: Chest x-ray dated 04/30/2016. TECHNIQUE: Intraoperative fluoroscopy was provided to Dr. Greenberg for the placement of a pacemaker in the operating room. FLUOROSCOPY TIME: 10 minutes 19 seconds. FINDINGS: Intraoperative fluoroscopy was provided and 5 spot films are submitted for review. Limited images demonstrate placement of a right atrial and right ventricular pacer lead. IMPRESSION: Dual-chamber pacemaker placement.
--- NOTE | 2016-05-01 09:05 | Cons- CRCU ---
General Information and HPI Consulting Request Date of Consult: 05/01/16 Requested By: Cardio History of Present Illness: This is a lady with history of hypertension, hyperlipidemia, coronary artery disease with previous CABG, chronic kidney disease, came in with hypotension and worsening renal insufficiency. Patient apparently was brought into the hospital yesterday with weakness and fatigue serum she was found to have third-degree heart block. From the emergency room she was initially treated with fluids and did probably receive glucagon for reversal of effects of metoprolol as she was on metoprolol. Subsequently she was brought into the operating room for a pacemaker. She was then intubated in the operating room and apparently there was a transient episode of prolonged bradycardia while in the operating room and hence the patient was intubated. Full details are not yet available in the chart at the time of this dictation. I'm not sure whether she received cardiac compressions. At this time when I saw her she was intubated and alert and awake and was following commands. She was making urine. She was having some yellow-green secretions being aspirated from her ET tube. There was some history suggestive of aspiration while she was getting intubated as well. Since she's been in the ICU there has been no evidence of fever and patient has been on 45% FiO2 with the O2 sat of 98-99% on assist control. Other history could not be obtained as patient was intubated sedated. SIGNIFICANT DATA chest x-ray showed bilateral pulmonary edema with bibasilar atelectasis Patient did have a CT of the chest few months ago which showed calcified lung nodule with very large hiatal hernia with mildly enlarged paratracheal lymph nodes. Blood work reviewed creatinine is 2.2 on admission it was 2.4 baseline appears to be 2.0, anion gap initially was 19 subsequently was 14 lactic acid was elevated early this morning but it's much improved since last night which was 9.4 magnesium was 1.8 liver enzymes were elevated TSH was 4.3 free T4 was 1.31. Allergies/Medications Allergies: Coded Allergies: NO KNOWN ALLERGIES (02/20/12) Home Med List: Amlodipine Besylate 10 MG TABLET 1 TAB PO DAILY HEART/BP (Reported) Aspirin (Ecotrin*) 81 MG TABLET.DR 1 TAB PO DAILY HEART/BLOOD (Reported) Cranberry 400 MG CAPSULE 2 TAB PO DAILY SUPPLEMENT (Reported) Escitalopram Oxalate (Lexapro) 5 MG TABLET 5 MG PO DAILY ANXIETY (Reported) Hydralazine HCl 100 MG TABLET 1 TAB PO BID HEART/BP (Reported) Losartan Potassium 25 MG TABLET 1 TAB PO DAILY HEART/BP (Reported) Metoprolol Tartrate 25 MG TABLET 1 TAB PO BID HEART/BP (Reported) Simvastatin (Zocor*) 20 MG TABLET 1 TAB PO DAILY CHOLESTEROL (Reported) Review of Systems Review of Systems Constitutional: Reports: see HPI. 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 Home Who Do You Live With? self Services at Home: None Primary Language: Guine[place] Smoking Status: Never Smoked ETOH Use: denies use Illicit Drug Use: denies illicit drug use Functional Ability ADLs Independent: dressing, eating, toileting, bathing. Ambulation: independent IADLs Independent: shopping, housework, finances, food prep, telephone, transportation , medication admin. Exam & Diagnostic Data Last 24 Hrs of Vital Signs/I&O Vital Signs Date Time Temp Pulse Resp B/P Pulse O2 O2 Flow FiO2 Ox Delivery Rate 05/01 0801 45 05/01 0800 98 Ventilator 45% 05/01 0800 98.7 65 30 112/60 98 Ventilator 45% 05/01 0625 60 05/01 0400 95 Ventilator 60% 05/01 0318 60 05/01 0100 96.6 80 20 128/60 94 Ventilator 60% 05/01 0100 94 Ventilator 60% 05/01 0034 50 05/01 0033 100 04/30 2320 100 04/30 1920 96.4 31 28 110/54 93 Nasal 4.0L Cannula 04/30 1852 30 28 116/56 93 Nasal 4.0L Cannula 04/30 1823 96.6 34 26 120/58 94 Nasal 4.0L Cannula 04/30 1746 96.6 31 24 108/56 93 Nasal 4.0L Cannula 04/30 1655 32 22 116/54 95 Nasal 4.0L Cannula 04/30 1614 96.6 34 22 112/56 93 Nasal 4.0L Cannula 04/30 1543 122/62 04/30 1508 32 120/60 04/30 1440 33 16 78/50 04/30 1410 32 22 108/42 96 Room Air 04/30 1307 36 112/48 04/30 1205 32 16 132/54 99 Room Air 04/30 1130 98.4 32 16 145/74 97 Nasal 2.0L Cannula Intake & Output 05/01 1600 05/01 0800 05/01 0000 Intake Total 361 Output Total 305 Balance 56 Intake, IV 361 Number 0 Bowel Movements Output, 35 Gastric Drainage Output, Urine 270 Patient 137 lb Weight Last 48 Hrs of Labs/Kyle: Laboratory Tests 05/01/16 0650: Lactic Acid 3.5 H 05/01/16 0415: Anion Gap 14, Estimated GFR 21 L, BUN/Creatinine Ratio 23.2, Calcium 8.6, Phosphorus 4.4, Magnesium 1.8, CBC w Diff MAN DIFF ORDERED, RBC 3.45 L, MCV 93.6, MCH 30.8, RDW 13.5, MPV 8.7, Gran % 91.7 H, Lymphocytes % 2.1 L, Monocytes % 6.1, Eosinophils % 0, Basophils % 0.1, Absolute Granulocytes 13.1 H , Segmented Neutrophils 83 H, Band Neutrophils 9 H, Absolute Lymphocytes 0.3 L, Lymphocytes 3 L, Monocytes 5, Absolute Monocytes 0.9 H, Absolute Eosinophils 0, Absolute Basophils 0, Platelet Estimate ADEQUATE, Polychromasia 1 +, Poikilocytosis 1+, Ovalocytes 1+, PUBS MCHC 32.9 L, Fld Total RBCs Counted 100 05/01/16 0055: pH 7.36, pCO2 26 L, pO2 72 L, HCO3 14 L, ABG O2 Sat (Measured) 93.0 L, P-50 (Temp Corrected) N, Carboxyhemoglobin 0.3 L, O2 Concentration % .60, Respiration Rate 20, O2 Delivery Method VENT, Vent Mode A/C, Expiratory Pressure 5, Tidal Volume 500, Phlebotomy Draw Site [place] 04/30/16 1090: Anion Gap 19 H, Estimated GFR 21 L, Glucose 126 H, Lactic Acid 9.4 H, Calcium 9.0, Phosphorus 5.9 H, Magnesium 1.9, Total Bilirubin 1.1, AST 269 H, ALT 175 H, Albumin 3.0 L 04/30/16 2215: pH 7.15 *L, pCO2 45, pO2 255 H, HCO3 15 L, ABG O2 Sat (Measured) 98.0, Carboxyhemoglobin 0.3 L, O2 Concentration % 100%, O2 Delivery Method OR/ANES, Phlebotomy Draw Site [place] 04/30/16 2144: CBC w Diff NO MAN DIFF REQ, RBC 3.30 L, MCV 94.2, MCH 30.3, RDW 13.9, MPV 8.6, Gran % 86.4 H, Lymphocytes % 6.4 L, Monocytes % 6.4, Eosinophils % 0.1, Basophils % 0.7, Absolute Granulocytes 9.3 H, Absolute Lymphocytes 0.7 L, Absolute Monocytes 0.7 H, Absolute Eosinophils 0, Absolute Basophils 0.1, PUBS MCHC 32.2 L 04/30/162139: pH 7.02 *L, pCO2 44, pO2 227 H, HCO3 11 L, ABG O2 Sat (Measured) 98.0, Carboxyhemoglobin 0.3 L, O2 Concentration % 100%, O2 Delivery Method OR/ANES, Phlebotomy Draw Site [place] 04/30/16 1931: PT 12.8 H, INR 1.22 H, APTT 24 L 04/30/16 1130: Anion Gap 13, Estimated GFR 19 L, BUN/Creatinine Ratio 25.0, Glucose 118 H, Calcium 10.4 H, Magnesium 1.4 L, Total Bilirubin 1.0, AST 64 H, ALT 71 H, Alkaline Phosphatase 98, Troponin I 0.06, Total Protein 6.9, Albumin 3.7, Globulin 3.2, Albumin/Globulin Ratio 1.2, TSH 4.300 H, CBC w Diff NO MAN DIFF REQ, RBC 3.83 L, MCV 92.8, MCH 30.7, RDW 14.2, MPV 8.4, Gran % 74.8, Lymphocytes % 12.3 L, Monocytes % 11.0 H, Eosinophils % 0.5, Basophils % 1.4, Absolute Granulocytes 6.0, Absolute Lymphocytes 1.0 L, Absolute Monocytes 0.9 H, Absolute Eosinophils 0, Absolute Basophils 0.1, PUBS MCHC 33.1 Assessment/Plan Impression/Plan: On physical exam Intubated ET tube in place Neck supple no JVD Chest decreased breath sounds with crackles heard Heart S1-S2 was heard Pacemaker incision site normal Abdominal exam soft bowel sounds were heard No significant edema Patient is alert awake and oriented 3 and moves all extremities unremarkable neuro exam so far IMPRESSION This is an elderly lady with history of hypertension chronic kidney disease ischemic heart with previous CABG, hyperlipidemia came into the emergency room with third-degree heart block subsequently he has had a permanent pacemaker. In the interim she has * Acute respiratory failure needed to be intubated after she had complete heart block with transient cardiopulmonary arrest. * Probable aspiration pneumonitis in a lady with very large hiatal hernia * Chronic kidney disease with mild acute pulmonary edema * Acute on chronic kidney disease due to multiple issues including transient hypotension, ARB with third-degree heart block * History of hypertension, hyperlipidemia, coronary artery disease on appropriate medication RECOMMENDATION * Continue mechanical ventilator * Intravenous Lasix 1 as a chest x-ray and clinical exam is suggestive of mild pulmonary edema * Sputum culture * Start her on intravenous Unasyn * Keep the head of bed elevated * Pressure support trial for half hour and if she does well we will extubate * Continue proton pump inhibitor * Change her intravenous fluids to D5 half-normal at 60 mL per hour * If she has difficulty getting extubated we will start her on low-dose propofol drip * Hold her metoprolol and angiotensin receptor chance for now * Subcutaneous heparin * When her blood pressure starts coming up will reinstitute hydralazine and metoprolol as she has a pacemaker and subsequently we will institute her other medications which includes amlodipine. Will hold losartan for now Patient is critically ill total time spent 40 minutes Consult Acknowledgment - Thank you for your consult request.
--- NOTE | 2016-05-01 12:41 | Cons- Thoracic Surgery ---
General Information and HPI Consulting Request Date of Consult: 04/30/16 Requested By: RAHUL ZIMMERMAN,MILAD Gonzáles MD Reason for Consult: Hypotension and arterial cannulation during permanent pacemaker placement Source of Information: old records, PCP Exam Limitations: unable to give history, clinical condition History of Present Illness: I was called by the nursing boom supervisor at home that an emergency cardiothoracic surgical consultation was necessary in the operating room. The patient is an 86 -year-old woman who came in with symptomatic third-degree heart block. She was taken to the operating room this evening for permanent pacemaker placement during the course of the procedure patient with sheath dilation was done of the left subclavian artery. The patient became hypotensive and required some degree of CPR for a short period. I am asked to evaluate for the possible major thoracic vascular injury. On my arrival both the atrial and ventricular leads are in place through a right subclavian approach and the patient is hemodynamically stable. Allergies/Medications Allergies: Coded Allergies: NO KNOWN ALLERGIES (02/20/12) Home Med List: Amlodipine Besylate 10 MG TABLET 1 TAB PO DAILY HEART/BP (Reported) Aspirin (Ecotrin*) 81 MG TABLET.DR 1 TAB PO DAILY HEART/BLOOD (Reported) Cranberry 400 MG CAPSULE 2 TAB PO DAILY SUPPLEMENT (Reported) Escitalopram Oxalate (Lexapro) 5 MG TABLET 5 MG PO DAILY ANXIETY (Reported) Hydralazine HCl 100 MG TABLET 1 TAB PO BID HEART/BP (Reported) Losartan Potassium 25 MG TABLET 1 TAB PO DAILY HEART/BP (Reported) Metoprolol Tartrate 25 MG TABLET 1 TAB PO BID HEART/BP (Reported) Simvastatin (Zocor*) 20 MG TABLET 1 TAB PO DAILY CHOLESTEROL (Reported) Current Medications: Current Medications Sig/Brandon Start time Last Medication Dose Route Stop Time Status Admin Acetaminophen 650 MG Q8P PRN 04/30 2014 AC PO Acetaminophen 650 MG ONCE ONE 04/30 1345 DC 04/30 PO 04/30 1346 1350 Acetaminophen 0 .STK-MED ONE 04/30 1342 DC PO Ampicillin Sodium/ 1,500 MG Q12 05/01 1000 AC Sulbactam Sodium IV Sodium Chloride 100 ML Ampicillin Sodium/ 1,500 MG Q6 05/01 0843 DC 05/01 Sulbactam Sodium IV 0850 Sodium Chloride 100 ML Ampicillin Sodium/ 1,500 MG Q12 04/30 2330 DC 05/01 Sulbactam Sodium IV 0146 Sodium Chloride 100 ML Atropine Sulfate 0.5 MG ONE ONE 04/30 1445 DC 04/30 IV 04/30 1446 1445 Dextrose/Sodium 1,000 ML Q20H 05/01 1000 AC 05/01 Chloride IV 0957 Furosemide 40 MG ONCE ONE 05/01 0845 DC 05/01 IV 05/01 0846 0852 Glucagon 0 .STK-MED ONE 04/30 1446 DC .ROUTE Glucagon 1 MG ONCE ONE 04/30 1445 DC 04/30 N/A 1 UNIT IV 04/30 1446 1445 Glucagon 1 MG ONCE ONE 04/30 1345 DC 04/30 N/A 1 UNIT IV 04/30 1346 1350 Glucagon 0 .STK-MED ONE 04/30 1342 DC .ROUTE Heparin Sodium 5,000 UNIT Q8 05/01 1400 AC (Porcine) SC Lorazepam 1 MG ONCE ONE 05/01 0230 DC 05/01 IV 05/01 0231 0233 Lorazepam 0 .STK-MED ONE 04/30 1421 DC .ROUTE Lorazepam 0.5 MG ONCE ONE 04/30 1415 DC 04/30 IV 04/30 1416 1427 Magnesium Sulfate 1 GM Q2H 04/30 1230 DC 04/30 Dextrose/Water 100 ML IV 04/30 1629 1320 Ondansetron HCl 4 MG ONCE ONE 04/30 1400 DC 04/30 IV 04/30 1401 1350 Ondansetron HCl 0 .STK-MED ONE 04/30 1351 DC .ROUTE Pantoprazole Sodium 40 MG DAILY 05/01 1000 AC 05/01 IV 0852 Potassium Chloride 10 MEQ Q1H 05/01 0800 DC 05/01 IV 05/01 0901 0845 Sodium Chloride 1,000 ML Q13H 04/30 2015 DC 05/01 IV 0850 Sodium Chloride 1,000 ML BOLUS ONE 04/30 1800 DC 04/30 IV 04/30 1859 1749 Sodium Chloride 1,000 ML BOLUS ONE 04/30 1445 DC 04/30 IV 04/30 1544 1445 Sodium Chloride 1,000 ML ONCE ONE 04/30 1400 DC 04/30 IV 04/30 2039 1350 Sodium Chloride 1,000 ML BOLUS ONE 04/30 1230 DC 04/30 IV 04/30 1329 1242 Tramadol HCl 0 .STK-MED ONE 04/30 1341 DC PO Past History Medical History Neurological: NONE EENT: NONE Cardiovascular: CAD, hypertension, hyperlipidemia, TRIPLE BYPASS Respiratory: NONE Gastrointestinal: NONE Hepatic: NONE Renal: RENAL INSUFFICIENCY Musculoskeletal: ARTHRITIS Psychiatric: NONE Endocrine: NONE Blood Disorders: NONE Cancer(s): NONE 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 Home Who Do You Live With? self Services at Home: None Primary Language: [place] Smoking Status: Never Smoked ETOH Use: denies use Illicit Drug Use: denies illicit drug use Functional Ability ADLs Independent: dressing, eating, toileting, bathing. Ambulation: independent IADLs Independent: shopping, housework, finances, food prep, telephone, transportation , medication admin. Review of Systems Review of Systems: Not currently obtainable as the patient is intubated in the operating room. According to the record she came in with general lethargy. Exam & Diagnostic Data Vital Signs and I&O Vital Signs Date Time Temp Pulse Resp B/P Pulse O2 O2 Flow FiO2 Ox Delivery Rate 05/01 1200 93 Nasal 4.0L Cannula 05/01 0916 40 05/01 0801 45 05/01 0800 98 Ventilator 45% 05/01 0800 98.7 65 30 112/60 98 Ventilator 45% 05/01 0625 60 05/01 0400 95 Ventilator 60% 05/01 0318 60 05/01 0100 96.6 80 20 128/60 94 Ventilator 60% 05/01 0100 94 Ventilator 60% 05/01 0034 50 05/01 0033 100 04/30 2320 100 04/30 1920 96.4 31 28 110/54 93 Nasal 4.0L Cannula 04/30 1852 30 28 116/56 93 Nasal 4.0L Cannula 04/30 1823 96.6 34 26 120/58 94 Nasal 4.0L Cannula 04/30 1746 96.6 31 24 108/56 93 Nasal 4.0L Cannula 04/30 1655 32 22 116/54 95 Nasal 4.0L Cannula 04/30 1614 96.6 34 22 112/56 93 Nasal 4.0L Cannula 04/30 1543 122/62 04/30 1508 32 120/60 04/30 1440 33 16 78/50 04/30 1410 32 22 108/42 96 Room Air 04/30 1307 36 112/48 Intake & Output 05/01 1600 05/01 0800 05/01 0000 04/30 1600 04/30 0800 04/30 0000 Intake Total 361 1010 Output Total 305 Balance 56 1010 Intake, IV 361 1010 Number 0 Bowel Movements Output, 35 Gastric Drainage Output, Urine 270 Patient 137 lb 110 lb Weight Physical Exam: On examination and arterial line has been placed in the left radial artery. There is a good tracing with a blood pressure 120/70 and a regular heart rate 60. There is no hematoma in the left subclavian or supraclavicular area. There is a warm and well-perfused left arm. The rest of the physical examination is not possible because of the patient being prepped and draped in a sterile fashion on the operating room table while the procedure is in progress. Last 24 Hours of Labs: Laboratory Tests 05/01 05/01 05/01 1010 0948 0650 Blood Gas pH (7.35 - 7.45 PH) 7.48 H pCO2 (35 - 45 TORR) 30 L pO2 (80 - 100 TORR) 72 L HCO3 (21 - 28 MEQ/L) 22 ABG O2 Sat (Measured) (>96.0 %) 94.0 L P-50 (Temp Corrected) N Carboxyhemoglobin (1.5 - 5.0 %) 0.1 L O2 Concentration % 40% Respiration Rate (BPM) 24 O2 Delivery Method VENT Vent Mode CPAP/PSV TRIAL Expiratory Pressure (CMH2O/P) 5 Tidal Volume (CC) 323 Pressure Support (CMH2O/P) 6 Chemistry Lactic Acid (0.7 - 2.1 mmol/L) 3.2 H 3.5 H Miscellaneous Phlebotomy Draw Site LEFT A-LINE 05/01 05/01 04/30 0415 0055 2340 Blood Gas pH (7.35 - 7.45 PH) 7.36 pCO2 (35 - 45 TORR) 26 L pO2 (80 - 100 TORR) 72 L HCO3 (21 - 28 MEQ/L) 14 L ABG O2 Sat (Measured) (>96.0 %) 93.0 L P-50 (Temp Corrected) N Carboxyhemoglobin (1.5 - 5.0 %) 0.3 L O2 Concentration % .60 Respiration Rate (BPM) 20 O2 Delivery Method VENT Vent Mode A/C Expiratory Pressure (CMH2O/P) 5 Tidal Volume (CC) 500 Chemistry Sodium (137 - 145 mmol/L) 139 140 Potassium (3.5 - 5.1 mmol/L) 3.8 4.0 Chloride (98 - 107 mmol/L) 107 106 Carbon Dioxide (22 - 30 mmol/L) 17 L 15 L Anion Gap (5 - 16) 14 19 H BUN (7 - 17 mg/dL) 51 H 52 H Creatinine (0.5 - 1.0 mg/dL) 2.2 H 2.2 H Estimated GFR (>60 ml/min) 21 L 21 L BUN/Creatinine Ratio (7 - 25 %) 23.2 Glucose (65 - 99 mg/dL) 126 H Lactic Acid (0.7 - 2.1 mmol/L) 9.4 H Calcium (8.4 - 10.2 mg/dL) 8.6 9.0 Phosphorus (2.5 - 4.5 mg/dL) 4.4 5.9 H Magnesium (1.6 - 2.3 mg/dL) 1.8 1.9 Total Bilirubin (0.2 - 1.3 mg/dL) 1.1 AST (14 - 36 U/L) 269 H ALT (9 - 52 U/L) 175 H Albumin (3.5 - 5.0 g/dL) 3.0 L Hematology CBC w Diff MAN DIFF ORDERED WBC (4.8 - 10.8 /CUMM) 14.3 H RBC (4.20 - 5.40 /CUMM) 3.45 L Hgb (12.0 - 16.0 G/DL) 10.6 L Hct (37 - 47 %) 32.2 L MCV (81.0 - 99.0 FL) 93.6 MCH (27.0 - 31.0 PG) 30.8 RDW (11.5 - 14.5 %) 13.5 Plt Count (130 - 400 /CUMM) 159 MPV (7.4 - 10.4 FL) 8.7 Gran % (42.2 - 75.2 %) 91.7 H Lymphocytes % (20.5 - 51.1 %) 2.1 L Monocytes % (1.7 - 9.3 %) 6.1 Eosinophils % (0 - 5 %) 0 Basophils % (0.0 - 2.0 %) 0.1 Absolute Granulocytes (1.4 - 6.5 /CUMM) 13.1 H Segmented Neutrophils (42.2 - 75.2 %) 83 H Band Neutrophils (0.0 - 5.0 %) 9 H Absolute Lymphocytes (1.2 - 3.4 /CUMM) 0.3 L Lymphocytes (20.5 - 51.1 %) 3 L Monocytes (1.7 - 9.3 %) 5 Absolute Monocytes (0.10 - 0.60 /CUMM) 0.9 H Absolute Eosinophils (0.0 - 0.7 /CUMM) 0 Absolute Basophils (0.0 - 0.2 /CUMM) 0 Platelet Estimate (ADEQUATE) ADEQUATE Polychromasia 1+ Poikilocytosis 1+ Ovalocytes 1+ PUBS MCHC (33.0 - 37.0 G/DL) 32.9 L Miscellaneous Phlebotomy Draw Site [facility] Other Body Source Fld Total RBCs Counted (%) 100 04/30 04/30 04/30 2215 2144 2140 Blood Gas pH (7.35 - 7.45 PH) 7.15 *L 7.02 *L pCO2 (35 - 45 TORR) 45 44 pO2 (80 - 100 TORR) 255 H 227 H HCO3 (21 - 28 MEQ/L) 15 L 11 L ABG O2 Sat (Measured) (>96.0 %) 98.0 98.0 Carboxyhemoglobin (1.5 - 5.0 %) 0.3 L 0.3 L O2 Concentration % 100% 100% O2 Delivery Method OR/ANES OR/ANES Hematology CBC w Diff NO MAN DIFF REQ WBC (4.8 - 10.8 /CUMM) 10.7 RBC (4.20 - 5.40 /CUMM) 3.30 L Hgb (12.0 - 16.0 G/DL) 10.0 L Hct (37 - 47 %) 31.0 L MCV (81.0 - 99.0 FL) 94.2 MCH (27.0 - 31.0 PG) 30.3 RDW (11.5 - 14.5 %) 13.9 Plt Count (130 - 400 /CUMM) 150 MPV (7.4 - 10.4 FL) 8.6 Gran % (42.2 - 75.2 %) 86.4 H Lymphocytes % (20.5 - 51.1 %) 6.4 L Monocytes % (1.7 - 9.3 %) 6.4 Eosinophils % (0 - 5 %) 0.1 Basophils % (0.0 - 2.0 %) 0.7 Absolute Granulocytes (1.4 - 6.5 /CUMM) 9.3 H Absolute Lymphocytes (1.2 - 3.4 /CUMM) 0.7 L Absolute Monocytes (0.10 - 0.60 /CUMM) 0.7 H Absolute Eosinophils (0.0 - 0.7 /CUMM) 0 Absolute Basophils (0.0 - 0.2 /CUMM) 0.1 PUBS MCHC (33.0 - 37.0 G/DL) 32.2 L Miscellaneous Phlebotomy Draw Site [facility] 04/30 1930 Coagulation PT (9.4 - 12.5 SEC) 12.8 H INR (0.90 - 1.19) 1.22 H APTT (25 - 37 SEC) 24 L Imaging Results: Intraoperative fluoroscopy of the left hemithorax shows no evidence of pneumothorax or any pleural effusion or hemothorax. Assessment/Plan Assessment/Plan It appears that the cannulation of the left subclavian artery has resulted in no vascular compromise or evidence of hemorrhage. I suspect that the patient's transient hypotension was related to her third degree block and the effects of anesthesia and possibly some mild hypotension. Currently there appeared to be no complications related to the inadvertent cannulation. She is fortunately had a successful pacemaker placement and there should be no further issues in the left arm or left chest. Of note is that the patient had coronary bypass surgery by me in 2009 and a left internal mammary artery was harvested and used. This usually leads to a degree of pleurodesis of the left hemithorax which would limit any degree of hemorrhage or pneumothorax. Given the fluoroscopy findings I have no concerns about vascular injury with hemorrhage into the left chest. Consult Acknowledgment - Thank you for your consult request.
--- NOTE | 2016-05-01 12:51 | NUR ---
PT EXTUBATED BY RT AT 1030, PT NOW ON 4LNC SAT 93%, NO S/SX OF DISTRESS, WILL CONT TO MON
--- NOTE | 2016-05-01 14:46 | PN- Cardiology ---
Subjective Subjective: * Patient is doing well. She answers questions appropriately and has been extubated. She denies shortness of breath or discomfort. * 100% paced rhythm * creatinine is 2.2 * WBC is 14.3 * no infiltrate on chest X-ray Objective Vital Signs and I&Os Vital Signs Date Time Temp Pulse Resp B/P Pulse O2 O2 Flow FiO2 Ox Delivery Rate 05/01 1200 93 Nasal 4.0L Cannula 05/01 0916 40 05/01 0801 45 05/01 0800 98 Ventilator 45% 05/01 0800 98.7 65 30 112/60 98 Ventilator 45% 05/01 0625 60 05/01 0400 95 Ventilator 60% 05/01 0318 60 05/01 0100 96.6 80 20 128/60 94 Ventilator 60% 05/01 0100 94 Ventilator 60% 05/01 0034 50 05/01 0033 100 04/30 2320 100 04/30 1920 96.4 31 28 110/54 93 Nasal 4.0L Cannula 04/30 1852 30 28 116/56 93 Nasal 4.0L Cannula 04/30 1823 96.6 34 26 120/58 94 Nasal 4.0L Cannula 04/30 1746 96.6 31 24 108/56 93 Nasal 4.0L Cannula 04/30 1655 32 22 116/54 95 Nasal 4.0L Cannula 04/30 1614 96.6 34 22 112/56 93 Nasal 4.0L Cannula 04/30 1543 122/62 04/30 1508 32 120/60 Intake & Output 05/01 1600 05/01 0800 05/01 0000 04/30 1600 04/30 0800 04/30 0000 Intake Total 431 374 3155 Output Total 1400 305 Balance -549 47 9686 Intake, IV 230 119 4644 Intake, Oral 180 Number 0 Bowel Movements Output, 35 Gastric Drainage Output, Urine 1400 270 Patient 137 lb 110 lb Weight Physical Exam: General: WD/ WN female in NAD; alert and oriented x 3 Neck: no JVD Chest: no hematoma Heart: RRR w/o murmur Lungs: clear bilaterally Ext: no edema Assessment/Plan Assessment/Plan * Patient is much improved this morning. Her creatinine is elevated along with her hepatic transaminases. This is likely related to her pre-renal state and hepatic congestion in the setting of complete heart block. I would expect this to improve. * The patient was suspected to have aspirated during her procedure and was intubated to protect her airway. She is now extubated and is breathing on her own. There is a slight rise in WBC. Continue Unasyn and follow her for signs of aspiration pneumonia. At present her chest X-ray is negative for infiltrate and she is afebrile. Follow sputum culture. Continue telemetry? Yes
[2016-05-01 16:00] VITALS: BP 114/60
--- NOTE | 2016-05-01 19:03 | Patient Discharge Instructions ---
Discharge Instructions General Discharge Information You were seen/treated for: third degree heart block You had these procedures: pacemaker placement Special Instructions: please follow up with your rn allergy upon discharge. please follow up with your PCP upon discharge. Please contiue to take your medications as prescribed. Instructions about pacemaker have been provided to you, please make sure you understand them. Diet Continue normal diet: No Recommended Diet: Heart Healthy Activity Full Activity/No Limits: No Activity Self Limited: Yes Acute Coronary Syndrome Inclusion Criteria At DC or during hospital stay patient has or had the following: ACS DIAGNOSIS No Discharge Core Measures Meds if any: Prescribed or Continued at Discharge Meds if any: NOT Prescribed or Continued at Discharge Congestive Heart Failure Inclusion Criteria At DC or during hospital stay patient has or had the following: CHF DIAGNOSIS No Discharge Core Measures Meds if any: Prescribed or Continued at Discharge Meds if any: NOT Prescribed or Continued at Discharge Cerebrovascular accident Inclusion Criteria At DC or during hospital stay patient has or had the following: CVA/TIA Diagnosis No Discharge Core Measures Meds if any: Prescribed or Continued at Discharge Meds if any: NOT Prescribed or Continued at Discharge Venous thromboembolism Inclusion Criteria VTE Diagnosis No VTE Type NONE VTE Confirmed by (Test) NONE Discharge Core Measures - Per Current guidelines, there needs to be overlap - treatment for the first 5 days of Warfarin therapy. - If discharged on Warfarin prior to 5 days of - overlap therapy, the patient will need to be - assessed for post discharge needs including - *Post discharge parental anticoagulation - *Warfarin and/or parental anticoagulation education - *Follow up date to check INR post discharge At least 5 days overlap therapy as Inpatient No Meds if any: Prescribed or Continued at Discharge Note: Overlap Therapy is Warfarin and Anticoagulant Meds if any: NOT Prescribed or Continued at Discharge
[2016-05-02] VITALS: BP 112/58
[2016-05-02 05:02] LABS: ABSOLUTE BASOPHIL COUNT 0 /CUMM (0.0-0.2); ABSOLUTE EOSINOPHIL COUNT 0.1 /CUMM (0.0-0.7); ABSOLUTE GRANULOCYTE CT 10.2 /CUMM (1.4-6.5); ABSOLUTE LYMPH COUNT 1.2 /CUMM (1.2-3.4); ABSOLUTE MONOCYTE COUNT 0.6 /CUMM (0.10-0.60); BASOPHIL % 0.1 % (0.0-2.0); EOSINOPHIL % 0.9 % (0-5); GRANULOCYTE % 84.1 % (42.2-75.2); HEMATOCRIT 27.3 % (37-47); MEAN CORPUSCULAR HGB 31.1 PG (27.0-31.0); MEAN CORPUSCULAR HGB CONC 33.3 G/DL (33.0-37.0); MEAN CORPUSCULAR VOLUME 93.3 FL (81.0-99.0); MEAN PLATELET VOLUME 8.6 FL (7.4-10.4); PLATELET COUNT 120 /CUMM (130-400); RBC DISTRIBUTION WIDTH 14.2 % (11.5-14.5); RED BLOOD CELL CT 2.93 /CUMM (4.20-5.40); WHITE BLOOD CELL COUNT 12.2 /CUMM (4.8-10.8)
[2016-05-02 07:00] VITALS: BP 122/52
--- NOTE | 2016-05-02 07:18 | PN- Resident CRCU ---
Subjective HPI/CRCU Issues: Patient seen and examined this morning. She was lying in bed in no acute distress, s/p pacemaker placement, She was alert and oriented, and in no acute distress. She was successfully extubated yesterday, remains on 4 L of nasal cannula oxygen satting in the 90s, afebrile overnight, blood pressure overnight has been in normal. She passed a swallow valve yesterday and was started on regular diet which she has been tolerating well. Patient started on Unasyn, sputum cultures pending, holding off on her blood pressure medication for now. 24 Hour Events: none Objective Vital Signs & I&O Last 8 Hrs of Vitals and I&O: Laboratory Tests 05/02/16 0455: Anion Gap 7, Estimated GFR 27 L, Glucose 97, Calcium 8.5, Phosphorus 2.8, Magnesium 1.6, Total Bilirubin 0.7, AST 113 H, ALT 96 H, Albumin 2.5 L, CBC w Diff MAN DIFF ORDERED, RBC 2.93 L, MCV 93.3, MCH 31.1 H, RDW 14.2, MPV 8.6, Gran % 84.1 H, Lymphocytes % 9.8 L, Monocytes % 5.1, Eosinophils % 0.9, Basophils % 0.1, Absolute Granulocytes 10.2 H, Absolute Lymphocytes 1.2, Absolute Monocytes 0.6, Absolute Eosinophils 0.1, Absolute Basophils 0, Platelet Estimate DECREASED, Polychromasia 1+, Hypochromic-Microcytic 1+, Poikilocytosis 1+, Basophilic Stippling 1+, PUBS MCHC 33.3 05/01/16 1010: pH 7.48 H, pCO2 30 L, pO2 72 L, HCO3 22, ABG O2 Sat (Measured) 94.0 L, P-50 (Temp Corrected) N, Carboxyhemoglobin 0.1 L, O2 Concentration % 40%, Respiration Rate 24, O2 Delivery Method VENT, Vent Mode CPAP/PSV TRIAL, Expiratory Pressure 5, Tidal Volume 323, Pressure Support 6, Phlebotomy Draw Site LEFT A-LINE 05/01/16 0948: Lactic Acid 3.2 H Microbiology 05/01 938 LOWER RESP: Respiratory Culture - COLB 05/01 938 LOWER RESP: Gram Stain - COLB Vital Signs Date Time Temp Pulse Resp B/P Pulse O2 O2 Flow FiO2 Ox Delivery Rate 05/02 0400 95 Nasal 4.0L Cannula 05/02 0000 94 Nasal 4.0L Cannula 05/02 0000 98.0 73 12 112/58 94 Nasal 4.0L Cannula 05/01 2000 92 Nasal 4.0L Cannula 05/01 1600 93 Nasal 4.0L Cannula 05/01 1600 98.7 73 16 114/60 93 Nasal 4.0L Cannula 05/01 1501 Nasal 4.0L Cannula 05/01 1200 93 Nasal 4.0L Cannula Intake & Output 05/02 1600 05/02 0800 05/02 0000 Intake Total 609 555 Output Total 500 950 Balance 109 -395 Intake, IV 489 455 Intake, Oral 120 100 Number 0 Bowel Movements Output, Urine 500 950 Patient 61.745 kg Weight Intake & Output 05/02 1600 Intake Total Output Total Balance Patient 61.745 kg Weight Exam General Appearance: well developed/nourished, no apparent distress, alert, awake Head: atraumatic, normal appearance Neck: normal inspection Respiratory: normal breath sounds Cardiovascular: regular rate/rhythm Gastrointestinal: normal bowel sounds, soft Extremities: normal inspection Weaning Parameters NIF: 31 Minute Volume: 13.6 Resp rate: 29 Vt: 469 Heart Rate: 77 Weaning Schedule Start Time: 0926 Minute Volume: 10.8 Resp Rate: 25 Vt: 433 Heart Rate: 85 End Time: 1028 Minute Volume: 10.9 Resp Rate: 25 Vt: 436 Heart Rate: 99 Nutrition Nutrition: P.O. diet Current Medications: Current Medications Sig/Brandon Start time Last Medication Dose Route Stop Time Status Admin Acetaminophen 650 MG Q8P PRN 04/30 2015 AC 05/02 PO 0924 Ampicillin Sodium/ 1,500 MG Q12 05/01 1000 AC 05/02 Sulbactam Sodium IV 0920 Sodium Chloride 100 ML Dextrose/Sodium 1,000 ML Q20H 05/01 1000 AC 05/02 Chloride IV 0615 Heparin Sodium 5,000 UNIT Q8 05/01 1400 AC 05/02 (Porcine) SC 0614 Magnesium Oxide 400 MG ONE ONE 05/02 0730 DC 05/02 PO 05/02 0731 0919 Pantoprazole Sodium 40 MG DAILY 05/01 1000 AC 05/02 IV 0919 Phosphate 250 MG PC AND AT BEDTIME 05/02 0900 AC 05/02 PO 0919 Potassium Chloride 20 MEQ ONCE ONE 05/02 0730 DC 05/02 PO 05/02 0731 0919 Sodium Chloride 1,000 ML Q13H 04/30 2014 DC 05/01 IV 0850 Impression/Plan Impression/Problem List Impression: This is a 86-year-old female with past medical history of hypertension, hyperlipidemia, coronary artery disease status post triple bypass brought into the ER by her son for complaints of dizziness and weakness for the past couple of days. Vitals upon presentation temperature 98.4, blood 32, his GERD rate 16, blood pressure 145/74, pulse ox 97 on 2 L cannula oxygen. Pertinent labs H&H 11.8 and 35.5, H&H 60 and 2.4, initial EKG showed third- degree heart block following bradycardia, patient continued to have episodic sinus positive lasting 6-10 seconds though patient was able to come out of 10 by her own. Patient admitted to ICU and monitor for the following conditions: Respiratory/CVS/Infectious disease: Acute respiratory failure leading to intubation in setting of Third degree heart block requiring pacemaker: Upon admission initial EKG showed third-degree heart block following bradycardia. She received glucagon to reverse effect of metoprolol. Went to OR for pacemaker placement last night, where she coded, apparetly she had a transient episode of prolonged bradycardia and tranisent episode of cardio- pulmonary arrest, she was thus intubated in OR. Details of event not available in chart as of now. Cardiology on board, will follow recs. Aspiration Pneumonia: Started on IV unasyn, will follow sputum and blood cx Hypertension: Will hold off blood pressure medications as blood pressure towards lower side, will restart when BP stable. Hyperlipidemia: Will cont home dose of simvastatin. Renal: Acute Kidney injury on CKD: Likely secondary to dehydration, creatnine level 2.4>>2.2, baseline 1.4. IV hydration , will follow up repeat labs. losartan on hold. DVT prophylaxis Patient is FULL CODE Problem List: 1. Acute renal failure 2. Generalized weakness 3. Bradycardia Pain Ratin Tomorrow's Labs & Rationales: icu bundle for lytes monitoring cbc for h&H moniroring Plan DVT/Prophylaxis: pharmacological
--- NOTE | 2016-05-02 08:13 | PN- CRCU ---
Subjective HPI/Critical Care Issues: Doing well post extubation Still has a cough Afebrile Saturating 92% on 4 L Blood pressure stable Continues to be on D5 half-normal saline Adequate urine output noted Patient remains afebrile Vital signs reviewed all the flowsheets and data reviewed Creatinine down to 1.8 her baseline creatinine is 2 BUN is improved potassium is 3.8 her bilirubin total was 0.7 AST ALT is improving TSH 4.3 free T4 pending White count elevated at 12.2 hemoglobin down to 9.1 INR 1.2 last ABG reviewed cultures pending sputum cultures showed many gram-positive cocci in the sputum chest x-ray to be done Objective Current Medications: Current Medications Sig/Brandon Start time Last Medication Dose Route Stop Time Status Admin Acetaminophen 650 MG Q8P PRN 04/30 2014 AC PO Ampicillin Sodium/ 1,500 MG Q12 05/01 1000 AC 05/01 Sulbactam Sodium IV 2202 Sodium Chloride 100 ML Ampicillin Sodium/ 1,500 MG Q6 05/01 0843 DC 05/01 Sulbactam Sodium IV 0850 Sodium Chloride 100 ML Ampicillin Sodium/ 1,500 MG Q12 04/30 2330 DC 05/01 Sulbactam Sodium IV 0146 Sodium Chloride 100 ML Dextrose/Sodium 1,000 ML Q20H 05/01 1000 AC 05/02 Chloride IV 0615 Furosemide 40 MG .STK-MED ONE 05/01 0849 DC IV 05/01 0850 Furosemide 40 MG ONCE ONE 05/01 0845 DC 05/01 IV 05/01 0846 0852 Heparin Sodium 5,000 UNIT Q8 05/01 1400 AC 05/02 (Porcine) SC 0614 Magnesium Oxide 400 MG ONE ONE 05/02 0730 DC PO 05/02 0731 Pantoprazole Sodium 40 MG DAILY 05/01 1000 AC 05/01 IV 0852 Phosphate 250 MG PC AND AT BEDTIME 05/02 0900 AC PO Potassium Chloride 20 MEQ ONCE ONE 05/02 0730 DC PO 05/02 0731 Potassium Chloride 10 MEQ Q1H 05/01 0800 DC 05/01 IV 05/01 0901 0845 Sodium Chloride 1,000 ML Q13H 04/30 2015 DC 05/01 IV 0850 Vital Signs & I&O Last 24 Hrs of Vitals and I&O: Laboratory Tests 05/02 05/01 0455 1010 Blood Gas pH (7.35 - 7.45 PH) 7.48 H pCO2 (35 - 45 TORR) 30 L pO2 (80 - 100 TORR) 72 L HCO3 (21 - 28 MEQ/L) 22 ABG O2 Sat (Measured) (>96.0 %) 94.0 L P-50 (Temp Corrected) N Carboxyhemoglobin (1.5 - 5.0 %) 0.1 L O2 Concentration % 40% Respiration Rate (BPM) 24 O2 Delivery Method VENT Vent Mode CPAP/PSV TRIAL Expiratory Pressure (CMH2O/P) 5 Tidal Volume (CC) 323 Pressure Support (CMH2O/P) 6 Chemistry Sodium (137 - 145 mmol/L) 140 Potassium (3.5 - 5.1 mmol/L) 3.8 Chloride (98 - 107 mmol/L) 106 Carbon Dioxide (22 - 30 mmol/L) 26 Anion Gap (5 - 16) 7 BUN (7 - 17 mg/dL) 47 H Creatinine (0.5 - 1.0 mg/dL) 1.8 H Estimated GFR (>60 ml/min) 27 L Glucose (65 - 99 mg/dL) 97 Calcium (8.4 - 10.2 mg/dL) 8.5 Phosphorus (2.5 - 4.5 mg/dL) 2.8 Magnesium (1.6 - 2.3 mg/dL) 1.6 Total Bilirubin (0.2 - 1.3 mg/dL) 0.7 AST (14 - 36 U/L) 113 H ALT (9 - 52 U/L) 96 H Albumin (3.5 - 5.0 g/dL) 2.5 L Hematology CBC w Diff MAN DIFF ORDERED WBC (4.8 - 10.8 /CUMM) 12.2 H RBC (4.20 - 5.40 /CUMM) 2.93 L Hgb (12.0 - 16.0 G/DL) 9.1 L Hct (37 - 47 %) 27.3 L MCV (81.0 - 99.0 FL) 93.3 MCH (27.0 - 31.0 PG) 31.1 H RDW (11.5 - 14.5 %) 14.2 Plt Count (130 - 400 /CUMM) 120 L MPV (7.4 - 10.4 FL) 8.6 Gran % (42.2 - 75.2 %) 84.1 H Lymphocytes % (20.5 - 51.1 %) 9.8 L Monocytes % (1.7 - 9.3 %) 5.1 Eosinophils % (0 - 5 %) 0.9 Basophils % (0.0 - 2.0 %) 0.1 Absolute Granulocytes (1.4 - 6.5 /CUMM) 10.2 H Absolute Lymphocytes (1.2 - 3.4 /CUMM) 1.2 Absolute Monocytes (0.10 - 0.60 /CUMM) 0.6 Absolute Eosinophils (0.0 - 0.7 /CUMM) 0.1 Absolute Basophils (0.0 - 0.2 /CUMM) 0 Platelet Estimate (ADEQUATE) DECREASED Polychromasia 1+ Hypochromic-Microcytic 1+ Poikilocytosis 1+ Basophilic Stippling 1+ PUBS MCHC (33.0 - 37.0 G/DL) 33.3 Miscellaneous Phlebotomy Draw Site LEFT A-LINE 05/01 05/01 05/01 0966 0612 0415 Chemistry Sodium (137 - 145 mmol/L) 139 Potassium (3.5 - 5.1 mmol/L) 3.8 Chloride (98 - 107 mmol/L) 107 Carbon Dioxide (22 - 30 mmol/L) 17 L Anion Gap (5 - 16) 14 BUN (7 - 17 mg/dL) 51 H Creatinine (0.5 - 1.0 mg/dL) 2.2 H Estimated GFR (>60 ml/min) 21 L BUN/Creatinine Ratio (7 - 25 %) 23.2 Lactic Acid (0.7 - 2.1 mmol/L) 3.2 H 3.5 H Calcium (8.4 - 10.2 mg/dL) 8.6 Phosphorus (2.5 - 4.5 mg/dL) 4.4 Magnesium (1.6 - 2.3 mg/dL) 1.8 Hematology CBC w Diff MAN DIFF ORDERED WBC (4.8 - 10.8 /CUMM) 14.3 H RBC (4.20 - 5.40 /CUMM) 3.45 L Hgb (12.0 - 16.0 G/DL) 10.6 L Hct (37 - 47 %) 32.2 L MCV (81.0 - 99.0 FL) 93.6 MCH (27.0 - 31.0 PG) 30.8 RDW (11.5 - 14.5 %) 13.5 Plt Count (130 - 400 /CUMM) 159 MPV (7.4 - 10.4 FL) 8.7 Gran % (42.2 - 75.2 %) 91.7 H Lymphocytes % (20.5 - 51.1 %) 2.1 L Monocytes % (1.7 - 9.3 %) 6.1 Eosinophils % (0 - 5 %) 0 Basophils % (0.0 - 2.0 %) 0.1 Absolute Granulocytes (1.4 - 6.5 /CUMM) 13.1 H Segmented Neutrophils (42.2 - 75.2 %) 83 H Band Neutrophils (0.0 - 5.0 %) 9 H Absolute Lymphocytes (1.2 - 3.4 /CUMM) 0.3 L Lymphocytes (20.5 - 51.1 %) 3 L Monocytes (1.7 - 9.3 %) 5 Absolute Monocytes (0.10 - 0.60 /CUMM) 0.9 H Absolute Eosinophils (0.0 - 0.7 /CUMM) 0 Absolute Basophils (0.0 - 0.2 /CUMM) 0 Platelet Estimate (ADEQUATE) ADEQUATE Polychromasia 1+ Poikilocytosis 1+ Ovalocytes 1+ PUBS MCHC (33.0 - 37.0 G/DL) 32.9 L Other Body Source Fld Total RBCs Counted (%) 100 05/01 04/30 04/30 0055 2340 2215 Blood Gas pH (7.35 - 7.45 PH) 7.36 7.15 *L pCO2 (35 - 45 TORR) 26 L 45 pO2 (80 - 100 TORR) 72 L 255 H HCO3 (21 - 28 MEQ/L) 14 L 15 L ABG O2 Sat (Measured) (>96.0 %) 93.0 L 98.0 P-50 (Temp Corrected) N Carboxyhemoglobin (1.5 - 5.0 %) 0.3 L 0.3 L O2 Concentration % .60 100% Respiration Rate (BPM) 20 O2 Delivery Method VENT OR/ANES Vent Mode A/C Expiratory Pressure (CMH2O/P) 5 Tidal Volume (CC) 500 Chemistry Sodium (137 - 145 mmol/L) 140 Potassium (3.5 - 5.1 mmol/L) 4.0 Chloride (98 - 107 mmol/L) 106 Carbon Dioxide (22 - 30 mmol/L) 15 L Anion Gap (5 - 16) 19 H BUN (7 - 17 mg/dL) 52 H Creatinine (0.5 - 1.0 mg/dL) 2.2 H Estimated GFR (>60 ml/min) 21 L Glucose (65 - 99 mg/dL) 126 H Lactic Acid (0.7 - 2.1 mmol/L) 9.4 H Calcium (8.4 - 10.2 mg/dL) 9.0 Phosphorus (2.5 - 4.5 mg/dL) 5.9 H Magnesium (1.6 - 2.3 mg/dL) 1.9 Total Bilirubin (0.2 - 1.3 mg/dL) 1.1 AST (14 - 36 U/L) 269 H ALT (9 - 52 U/L) 175 H Albumin (3.5 - 5.0 g/dL) 3.0 L Miscellaneous Phlebotomy Draw Site [facility] 04/30 04/30 04/30 2144 2140 1931 Blood Gas pH (7.35 - 7.45 PH) 7.02 *L pCO2 (35 - 45 TORR) 44 pO2 (80 - 100 TORR) 227 H HCO3 (21 - 28 MEQ/L) 11 L ABG O2 Sat (Measured) (>96.0 %) 98.0 Carboxyhemoglobin (1.5 - 5.0 %) 0.3 L O2 Concentration % 100% O2 Delivery Method OR/ANES Coagulation PT (9.4 - 12.5 SEC) 12.8 H INR (0.90 - 1.19) 1.22 H APTT (25 - 37 SEC) 24 L Hematology CBC w Diff NO MAN DIFF REQ WBC (4.8 - 10.8 /CUMM) 10.7 RBC (4.20 - 5.40 /CUMM) 3.30 L Hgb (12.0 - 16.0 G/DL) 10.0 L Hct (37 - 47 %) 31.0 L MCV (81.0 - 99.0 FL) 94.2 MCH (27.0 - 31.0 PG) 30.3 RDW (11.5 - 14.5 %) 13.9 Plt Count (130 - 400 /CUMM) 150 MPV (7.4 - 10.4 FL) 8.6 Gran % (42.2 - 75.2 %) 86.4 H Lymphocytes % (20.5 - 51.1 %) 6.4 L Monocytes % (1.7 - 9.3 %) 6.4 Eosinophils % (0 - 5 %) 0.1 Basophils % (0.0 - 2.0 %) 0.7 Absolute Granulocytes (1.4 - 6.5 /CUMM) 9.3 H Absolute Lymphocytes (1.2 - 3.4 /CUMM) 0.7 L Absolute Monocytes (0.10 - 0.60 /CUMM) 0.7 H Absolute Eosinophils (0.0 - 0.7 /CUMM) 0 Absolute Basophils (0.0 - 0.2 /CUMM) 0.1 PUBS MCHC (33.0 - 37.0 G/DL) 32.2 L Miscellaneous Phlebotomy Draw Site [facility] 04/30 1130 Chemistry Sodium (137 - 145 mmol/L) 134 L Potassium (3.5 - 5.1 mmol/L) 4.3 Chloride (98 - 107 mmol/L) 101 Carbon Dioxide (22 - 30 mmol/L) 19 L Anion Gap (5 - 16) 13 BUN (7 - 17 mg/dL) 60 H Creatinine (0.5 - 1.0 mg/dL) 2.4 H Estimated GFR (>60 ml/min) 19 L BUN/Creatinine Ratio (7 - 25 %) 25.0 Glucose (65 - 99 mg/dL) 118 H Calcium (8.4 - 10.2 mg/dL) 10.4 H Magnesium (1.6 - 2.3 mg/dL) 1.4 L Total Bilirubin (0.2 - 1.3 mg/dL) 1.0 AST (14 - 36 U/L) 64 H ALT (9 - 52 U/L) 71 H Alkaline Phosphatase (<127 U/L) 98 Troponin I (< 0.11 ng/ml) 0.06 Total Protein (6.3 - 8.2 g/dL) 6.9 Albumin (3.5 - 5.0 g/dL) 3.7 Globulin (1.9 - 4.2 gm/dL) 3.2 Albumin/Globulin Ratio (1.1 - 2.2 %) 1.2 TSH (0.270 - 4.200 uIU/mL) 4.300 H Hematology CBC w Diff NO MAN DIFF REQ WBC (4.8 - 10.8 /CUMM) 8.0 RBC (4.20 - 5.40 /CUMM) 3.83 L Hgb (12.0 - 16.0 G/DL) 11.8 L Hct (37 - 47 %) 35.5 L MCV (81.0 - 99.0 FL) 92.8 MCH (27.0 - 31.0 PG) 30.7 RDW (11.5 - 14.5 %) 14.2 Plt Count (130 - 400 /CUMM) 204 MPV (7.4 - 10.4 FL) 8.4 Gran % (42.2 - 75.2 %) 74.8 Lymphocytes % (20.5 - 51.1 %) 12.3 L Monocytes % (1.7 - 9.3 %) 11.0 H Eosinophils % (0 - 5 %) 0.5 Basophils % (0.0 - 2.0 %) 1.4 Absolute Granulocytes (1.4 - 6.5 /CUMM) 6.0 Absolute Lymphocytes (1.2 - 3.4 /CUMM) 1.0 L Absolute Monocytes (0.10 - 0.60 /CUMM) 0.9 H Absolute Eosinophils (0.0 - 0.7 /CUMM) 0 Absolute Basophils (0.0 - 0.2 /CUMM) 0.1 PUBS MCHC (33.0 - 37.0 G/DL) 33.1 Microbiology Date/Time Procedure - Status Source Growth 05/01 938 Respiratory Culture - COLB LOWER RESP 05/01 938 Gram Stain - COLB LOWER RESP 05/01 934 Respiratory Culture - CAN LOWER RESP Cancelled: DUPLICATE 05/01 934 Gram Stain - CAN LOWER RESP Cancelled: DUPLICATE 05/01 44 Respiratory Culture - RES LOWER RESP 05/01 44 Gram Stain - RES LOWER RESP 05/01 0030 Surveillance Culture - COMP UPPER RESP 05/01 003 Surveillance Culture - COMP GI 04/30 1415 Urine Culture - RES URINE ROUT Vital Signs Date Time Temp Pulse Resp B/P Pulse O2 O2 Flow FiO2 Ox Delivery Rate 05/02 0400 95 Nasal 4.0L Cannula 05/02 0000 94 Nasal 4.0L Cannula 05/02 0000 98.0 73 12 112/58 94 Nasal 4.0L Cannula 05/01 2000 92 Nasal 4.0L Cannula 05/01 1600 93 Nasal 4.0L Cannula 05/01 1600 98.7 73 16 114/60 93 Nasal 4.0L Cannula 05/01 1501 Nasal 4.0L Cannula 05/01 1200 93 Nasal 4.0L Cannula 05/01 0916 40 Intake & Output 05/02 1600 05/02 0800 05/02 0000 Intake Total 609 555 Output Total 500 950 Balance 109 -395 Intake, IV 489 455 Intake, Oral 120 100 Number 0 Bowel Movements Output, Urine 500 950 Impression/Plan Impression/Plan Impression/Plan: On physical exam Extubated on nasal cannula alert awake and oriented 3 Neck supple no JVD Chest decreased breath sounds with crackles heard Heart S1-S2 was heard Pacemaker incision site normal Abdominal exam soft bowel sounds were heard No significant edema IMPRESSION This is an elderly lady with history of hypertension chronic kidney disease ischemic heart with previous CABG, hyperlipidemia came into the emergency room with 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 In the interim she has * Resolved Acute respiratory failure now extubated * Probable aspiration pneumonitis in a lady with very large hiatal hernia * Chronic kidney disease with mild acute pulmonary edema, improving * Resolving Acute on chronic kidney disease due to multiple issues including transient hypotension, ARB with third-degree heart block * History of hypertension, hyperlipidemia, coronary artery disease on appropriate medication RECOMMENDATION * Continue antibiotics we'll de-escalate to by mouth tomorrow * Order a chest x-ray to make sure there is no other complication in the thorax * Follow hemoglobin and hematocrit this evening check stool for heme * One dose of intravenous Lasix 40 mg today. * Discontinue IV fluids * Can eat low-fat diet * LATOYA Dodson as soon as possible * Continue mechanical ventilator * Changed to by mouth PPI * Keep the head of bed elevated * As a blood pressure comes up can resume low-dose metoprolol and low-dose hydralazine [id number] * Subcutaneous heparin Patient probably can be transferred to a telemetry floor
--- NOTE | 2016-05-02 10:49 | RADIOLOGY REPORT ---
EXAMINATION: XR PORTABLE CHEST CLINICAL INFORMATION: Aspiration, pneumonia, effusion. COMPARISON: Yesterday, 05/01/2016. TECHNIQUE: Portable AP view of the chest was obtained. FINDINGS: Since yesterday's study, there are increasing pleural effusions. Once again noted is cardiac enlargement. There has been some improvement in the central venous congestion. Bibasilar atelectasis is seen. Right chest wall pacemaker remains in place. Since yesterday's study, the ET tube has been removed as has the NG tube. A large Hiatal hernia is present IMPRESSION: Patient has been extubated. Increase in pleural effusions and bibasilar atelectasis. Basilar infiltrates would also be a possibility. A large hiatal hernia is present.
--- NOTE | 2016-05-02 14:25 | Proc Note Cardiology ---
Cardiology Procedure Procedure Date: 05/02/16 Cardiology Procedure(s): Permanent pacemaker Pre-Operative Diagnosis: third degree AV block Post-Operative Diagnosis: third degree AV block Estimated Blood Loss: scant Anesthesia: general endotracheal tube Procedure Findings: History: This patient is an 86 year old female who presented to the ER with weakness and lightheadedness and was found to be in complete heart block with a slow ventricular escape rhythm. Procedure: This patient was prepped and draped in the usual sterile fashion after having obtained informed consent from her son. She was administered 2 gm of Ancef as prophylaxis against infection. An incision was then made in the left subclavicular space where a pacemaker pocket was dissected out. Access was attempted through the left subclavian vein via the Seldinger techinique and a 7F sheath was placed in the vein. It subsequently appeared that this was the subclavian artery however the patients poor oxygenation and low heart rate made it difficult to discern arterial from venous flow. The 7F sheath was removed and pressure held without any apparent bleeding. While access was being obtained and while in Trendelenburg the patient aspirated, as per anesthesia, and they opted to paralyze and sedate the patient and intubated her to protect her airway. It was then reported that the patient was not maintaining her BP and she did not appear to be capturing on her transcutaneous pacer. We quickly prepped the opposite (right side) and placed a 7F and the sheath in the right subclavian vein using the Seldinger technique. Two wires were placed and the sheath then removed and placed over a single wire with retention of the remaining wire for later use. The right ventricular lead was then placed in the right ventricular apex and pacing parameters were checked and confirmed to be good. We then removed the sheath and placed a second 7F sheath in the right subclavian vein and through this passed the lead to the right atrial appendage. Pacing parameters were again checked and confirmed to be within acceptable, or better, limits. The sheath was removed and the leads were sewn into place and the pacemaker was then placed in a pocket dissected inferior to the right clavicle after attaching both leads. The pacemaker pocket was sutured closed with three layers of absorbable suture. The pacemaker was again tested and the patient was brought to recovery where a chest X-ray and 12 lead ECG were obtained. Pacemaker: [employer] Ad[employer]a MRI safe Pacemaker Model # [id number] with serial # [id number] Atrial Lead: Model # [id number] Serial # [id number] Voltage: 0.5V Current: 1.0mA Impedance: 585 Ohms P wave: 4.5mV Ventricular Lead: Model # [id number] Serial # [id number] Voltage: 0.4V Current: 0.6mA Impedance: 862 Ohms R wave: 11.7 The patient aspirated during this procedure and was intubated and placed on antibiotics and was transferred to the ICU. She was hemodynamically stable at the time of transfer.
--- NOTE | 2016-05-02 17:41 | PN- Cardiology ---
Subjective Subjective: * Doing well. Patient is conversant without complaints. * Mild cough is noted. * creatinine coming down to 1.2 * H/H is mildly decreased * WBC coming down to 12.2 without fever Objective Vital Signs and I&Os Vital Signs Date Time Temp Pulse Resp B/P Pulse O2 O2 Flow FiO2 Ox Delivery Rate 05/02 1430 Nasal 5.0L Cannula 05/02 0800 92 Nasal 5.0L Cannula 05/02 0700 98.6 94 27 122/52 93 Nasal 5.0L Cannula 05/02 0400 95 Nasal 4.0L Cannula 05/02 0000 94 Nasal 4.0L Cannula 05/02 0000 98.0 73 12 112/58 94 Nasal 4.0L Cannula 05/01 2000 92 Nasal 4.0L Cannula Intake & Output 05/02 1600 05/02 0800 05/02 0000 05/01 1600 05/01 0800 05/01 0000 Intake Total 760 609 555 780 361 Output Total 430 582 381 1316 305 Balance 330 109 -395 -620 56 Intake, IV 160 489 455 600 361 Intake, Oral 600 120 100 180 Number 1 0 0 Bowel Movements Output, 35 Gastric Drainage Output, Urine 430 959 264 4134 270 Patient 136 lb 137 lb Weight Physical Exam: General: WD/ WN female in NAD; alert and oriented x 3 Neck: no JVD Chest: no hematoma Heart: RRR w/o murmur Lungs: clear bilaterally Ext: no edema Assessment/Plan Assessment/Plan * Patient continues to improve. Continue to follow her renal function and hepatic transaminases. No need for beta blockade or hydralazine at this time but we will continue to monitor. * Check free T4 since patient has an elevated TSH * The patient was suspected to have aspirated during her procedure. She is doing well post extubation. Continue antibiotic therapy as recommended by Dr. Lemus. Obtain a chest X-ray. Follow WBC count. * Lasix 40mg IV today. Continue telemetry? Yes
[2016-05-02 19:06] VITALS: BP 140/60
[2016-05-02 20:26] LABS: ABSOLUTE BASOPHIL COUNT 0.1 /CUMM (0.0-0.2); ABSOLUTE EOSINOPHIL COUNT 0.4 /CUMM (0.0-0.7); ABSOLUTE GRANULOCYTE CT 10.6 /CUMM (1.4-6.5); ABSOLUTE LYMPH COUNT 0.9 /CUMM (1.2-3.4); ABSOLUTE MONOCYTE COUNT 0.9 /CUMM (0.10-0.60); BASOPHIL % 0.6 % (0.0-2.0); EOSINOPHIL % 2.9 % (0-5); GRANULOCYTE % 82.3 % (42.2-75.2); HEMATOCRIT 32.1 % (37-47); MEAN CORPUSCULAR HGB CONC 32.9 G/DL (33.0-37.0); MEAN CORPUSCULAR VOLUME 94.3 FL (81.0-99.0); MEAN PLATELET VOLUME 9.3 FL (7.4-10.4); PLATELET COUNT 142 /CUMM (130-400); RBC DISTRIBUTION WIDTH 13.6 % (11.5-14.5); WHITE BLOOD CELL COUNT 12.9 /CUMM (4.8-10.8)
[2016-05-02 22:22] VITALS: BP 130/52
--- NOTE | 2016-05-03 07:12 | PN- Housestaff ---
Subjective Follow-up For: CHB s/p PPM Complaints: no complaints Tele-Events Since Last Visit: Single pacing, Hr between 71-81, no any overnight events Subjective: Patient is seen and examined at the bedside. She was not having any active complaints. She denies any chest pain, palpitations, shortness of breath, dyspnea on exertion. She walked around with the PT without any dyspnea, dizziness, discomfort. Review of Systems Constitutional: Denies: chills, diaphoresis, fever, malaise, weakness. Cardiovascular: Denies: chest pain, edema, orthopena, palpitations. Respiratory: Denies: cough, hemoptysis, orthopnea, short of breath. Gastrointestinal: Denies: abdominal pain, bloating, constipation, diarrhea, distention. Genitourinary: Denies: discharge, dysuria, frequency. Musculoskeletal: Denies: back pain, muscle pain. Objective Last 24 Hrs of Vital Signs/I&O Vital Signs Date Time Temp Pulse Resp B/P Pulse O2 O2 Flow FiO2 Ox Delivery Rate 05/03 1627 97.3 91 20 130/60 96 Nasal 3.0L Cannula 05/03 0906 97.9 91 20 130/50 98 Nasal 4.0L Cannula 05/03 0800 95 Nasal 3.0L Cannula 05/03 0800 97.9 91 20 130/50 98 Nasal 4.0L Cannula 05/03 0000 95 Nasal 4.0L Cannula 05/02 2222 97.7 108 20 130/52 95 Intake & Output 05/03 1600 05/03 0800 05/03 0000 Intake Total 640 240 240 Output Total 500 Balance 640 240 -260 Intake, Oral 640 240 240 Number 0 Bowel Movements Output, Urine 500 Physical Exam General Appearance: Alert, Oriented X3, Cooperative, No Acute Distress Cardiovascular: Normal S1, Normal S2, right upper chest PPM located, area shows no any signs of inflammation and no local tenderness Lungs: Clear to Auscultation, Normal Air Movement Abdomen: Soft, No Tenderness Neurological: Normal Speech Extremities: No Clubbing, No Cyanosis, No Edema Vascular: Normal Pulses, Pulses Symmetrical Current Medications: Current Medications Sig/Brandon Start time Last Medication Dose Route Stop Time Status Admin Acetaminophen 650 MG Q8P PRN 04/30 2014 AC 05/03 PO 0620 Amoxicillin/ 875 MG Q12 05/03 1548 AC Clavulanate Potassium PO 05/06 0600 Ampicillin Sodium/ 1,500 MG Q12 05/01 1000 DC 05/03 Sulbactam Sodium IV 0943 Sodium Chloride 100 ML Furosemide 40 MG 7:30 AM, & 4:30 PM 05/04 0730 AC IV Furosemide 40 MG ONCE ONE 05/03 1600 DC 05/03 IV 05/03 1601 1710 Heparin Sodium 5,000 UNIT Q8 05/01 1400 AC 05/03 (Porcine) SC 1454 Magnesium Oxide 400 MG BID 05/03 1030 AC 05/03 PO 1044 Omeprazole 40 MG DAILY AC 05/02 0941 AC 05/03 PO 0616 Phosphate 250 MG PC AND AT BEDTIME 05/02 0900 AC 05/03 PO 1710 Last 24 Hrs of Lab/Kyle Results Last 24 Hrs of Labs/Mics: Laboratory Tests 05/03/16 0845: Anion Gap 7, Estimated GFR 33 L, BUN/Creatinine Ratio 21.3, Phosphorus 3.0, Magnesium 1.2 L, CBC w Diff MAN DIFF ORDERED, RBC 3.33 L, MCV 93.4, MCH 31.3 H, RDW 13.6, MPV 9.5, Gran % 84.9 H, Lymphocytes % 7.2 L, Monocytes % 4.2, Eosinophils % 3.5, Basophils % 0.2, Absolute Granulocytes 8.6 H, Absolute Lymphocytes 0.7 L, Absolute Monocytes 0.4, Absolute Eosinophils 0.4, Absolute Basophils 0, Platelet Estimate VERIFIED BY SMEAR, Polychromasia 1+, PUBS MCHC 33.5 Assessment/Plan Assessment: Patient is an 86-year-old female with significant past medical history of hypertension, hyperlipidemia , coronary artery disease s/p CABG(triple vessel Bipass) brought into the ER by her son with Hx of of dizziness and weakness for the past couple of days. Plan - Third degree heart block s/p PPM - * We will continue telemetry monitoring * We'll watch for heart rate/rhythm/pacing * We will give inj Lasix 40 mgs IV state followed by Tab Lasix 40mg PO BID * We will regularly monitor the creatinine Hypomagnesemia -Mg 1.2 * We will and tablet magnesium 400 mgs BID * we will regularly monitor it Aspiration pneumonia - * We stopped Inj Unasyn and started patient on tablet Augmentin 875 mgs twice a day * We will watch for the signs of infection * We will taper Oxygen to minimum Hypertension - * We will withhold the beta chance/hydralazine * We will watch for the blood pressure Diet -heart healthy diet DVT prophylaxis-ALP S/heparin CODE STATUS-full code Problem List: 1. Complete heart block 2. Presence of permanent cardiac pacemaker 3. Hypomagnesemia 4. Aspiration pneumonia 5. Acute renal failure Pain Ratin Pain Location: Chest pain Pain Goal: Remain pain free Pain Plan: [id number] Tomorrow's Labs & Rationales: [id number] with creatinine [id number]-[id number] hypomagnesemia DVT/Prophylaxis: mechanical, pharmacological
[2016-05-03 08:00] VITALS: BP 130/50
--- NOTE | 2016-05-03 08:52 | Transfer of Care Summary ---
Hospital Course Course Hospital Course: his is a 86-year-old female with past medical history of hypertension, hyperlipidemia, coronary artery disease status post triple bypass brought into the ER by her son for complaints of dizziness and weakness for the past couple of days. Vitals upon presentation temperature 98.4, blood 32, his GERD rate 16, blood pressure 145/74, pulse ox 97 on 2 L cannula oxygen. Pertinent labs H&H 11.8 and 35.5, H&H 60 and 2.4, initial EKG showed third- degree heart block following bradycardia, patient continued to have episodic sinus positive lasting 6-10 seconds though patient was able to come out of it by her own. Patient was admitted to ICU and monitored for the following conditions: Acute respiratory failure leading to intubation in setting of Third degree heart block requiring pacemaker: Upon admission initial EKG showed third-degree heart block following bradycardia. She received glucagon to reverse effect of metoprolol. Went to OR for pacemaker placement last night, where she coded, apparetly she had a transient episode of prolonged bradycardia and tranisent episode of cardio- pulmonary arrest, she was thus intubated in OR. Please refer to the procedure note for further details. Next day the patient was successfully extubated, she had a swallow eval done and was started on by mouth diet which he has been tolerating well. She has been alert and oriented to time person ever since, vitals within normal limits. Heart urology on board please follow recommendations. Aspiration Pneumonitis: Patient was suspected to have aspirated during the pacemaker placement procedure , she was started on IV unasyn>> to be switched today to PO, sputum grew mixed amanda and blood cx NGTD Has been afebrile, white count improving. Pleural effusion: Chest x-ray done yesterday showed increase in pleural effusions, she was given 1 dose of IV Lasix 40 mg yesterday, up until yesterday she was satting well in mid 90s on 4 L of nasal cannula oxygen, please reevaluate today for need of repeat chest x-ray are Lasix depending on her clinical assessment. Hypertension: Will held off blood pressure medications as blood pressure towards lower side, will restart when BP stable. Resume low-dose metoprolol and hydralazine once BP more stable. Hyperlipidemia: Will cont home dose of simvastatin. Acute Kidney injury on CKD: Likely secondary to dehydration, creatnine level 2.4>>2.2>>1.8 today, baseline 1.4. Upon admission losartan was held, resume when kidney function improves. DVT prophylaxis: Pharmacological Patient is FULL CODE Assessment/Plan: .
[2016-05-03 09:06] VITALS: BP 130/50
[2016-05-03 09:54] LABS: ABSOLUTE BASOPHIL COUNT 0 /CUMM (0.0-0.2); ABSOLUTE EOSINOPHIL COUNT 0.4 /CUMM (0.0-0.7); ABSOLUTE GRANULOCYTE CT 8.6 /CUMM (1.4-6.5); ABSOLUTE LYMPH COUNT 0.7 /CUMM (1.2-3.4); ABSOLUTE MONOCYTE COUNT 0.4 /CUMM (0.10-0.60); BASOPHIL % 0.2 % (0.0-2.0); EOSINOPHIL % 3.5 % (0-5); GRANULOCYTE % 84.9 % (42.2-75.2); HEMATOCRIT 31.1 % (37-47); MEAN CORPUSCULAR HGB 31.3 PG (27.0-31.0); MEAN CORPUSCULAR HGB CONC 33.5 G/DL (33.0-37.0); MEAN CORPUSCULAR VOLUME 93.4 FL (81.0-99.0); MEAN PLATELET VOLUME 9.5 FL (7.4-10.4); PLATELET COUNT 155 /CUMM (130-400); RBC DISTRIBUTION WIDTH 13.6 % (11.5-14.5); RED BLOOD CELL CT 3.33 /CUMM (4.20-5.40); WHITE BLOOD CELL COUNT 10.1 /CUMM (4.8-10.8)
--- NOTE | 2016-05-03 14:14 | PN- Pulmonary ---
Subjective HPI/Critical Care Issues: Still hypoxic but breathing is improved Objective Current Medications: Current Medications Sig/Brandon Start time Last Medication Dose Route Stop Time Status Admin Acetaminophen 650 MG Q8P PRN 04/30 2014 AC 05/03 PO 0620 Ampicillin Sodium/ 1,500 MG Q12 05/01 1000 AC 05/03 Sulbactam Sodium IV 0943 Sodium Chloride 100 ML Heparin Sodium 5,000 UNIT Q8 05/01 1400 AC 05/03 (Porcine) SC 0617 Magnesium Oxide 400 MG BID 05/03 1030 AC 05/03 PO 1044 Omeprazole 40 MG DAILY AC 05/02 0941 AC 05/03 PO 0616 Phosphate 250 MG PC AND AT BEDTIME 05/02 0900 AC 05/03 PO 0943 Vital Signs & I&O Last 24 Hrs of Vitals and I&O: Vital Signs Date Time Temp Pulse Resp B/P Pulse O2 O2 Flow FiO2 Ox Delivery Rate 05/03 0906 97.9 91 20 130/50 98 Nasal 4.0L Cannula 05/03 0800 95 Nasal 3.0L Cannula 05/03 0800 97.9 91 20 130/50 98 Nasal 4.0L Cannula 05/03 0000 95 Nasal 4.0L Cannula 05/02 2222 97.7 108 20 130/52 95 05/02 1906 98.0 88 18 140/60 140 Nasal 4.0L Cannula 05/02 1430 Nasal 5.0L Cannula Intake & Output 05/03 1600 05/03 0800 05/03 0000 Intake Total 240 240 Output Total 500 Balance 240 -260 Intake, Oral 240 240 Number 0 Bowel Movements Output, Urine 500 Impression/Plan Impression/Plan Impression/Plan: On physical exam Extubated on nasal cannula alert awake and oriented 3 Neck supple no JVD Chest decreased breath sounds with crackles heard Heart S1-S2 was heard Pacemaker incision site normal Abdominal exam soft bowel sounds were heard No significant edema IMPRESSION This is an elderly lady with history of hypertension chronic kidney disease ischemic heart with previous CABG, hyperlipidemia came into the emergency room with 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 In the interim she has * Resolved Acute respiratory failure now extubated * Probable aspiration pneumonitis in a lady with very large hiatal hernia * Chronic kidney disease with mild acute pulmonary edema, improving * Resolving Acute on chronic kidney disease due to multiple issues including transient hypotension, ARB with third-degree heart block * History of hypertension, hyperlipidemia, coronary artery disease on appropriate medication RECOMMENDATION * Po augmentin for three more days and dc * Lasix one dose iv today 40 mg * Wean oxygen
--- NOTE | 2016-05-03 15:55 | PN- Cardiology ---
Subjective Subjective: * Patient ambulated without problem. No shortness of breath or lightheadedness. * 100% atrial sensed and ventricular paced rhythm * creatinine has come down to 1.5 * Normal WBC without fever * small pleural effusions noted. Objective Vital Signs and I&Os Vital Signs Date Time Temp Pulse Resp B/P Pulse O2 O2 Flow FiO2 Ox Delivery Rate 05/03 0906 97.9 91 20 130/50 98 Nasal 4.0L Cannula 05/03 08 95 Nasal 3.0L Cannula 05/03 08 97.9 91 20 130/50 98 Nasal 4.0L Cannula 05/03 0000 95 Nasal 4.0L Cannula 05/02 2222 97.7 108 20 130/52 95 05/02 1906 98.0 88 18 140/60 140 Nasal 4.0L Cannula Intake & Output 05/03 1600 05/03 0800 05/03 0000 05/02 1600 05/02 0800 05/02 0000 Intake Total 640 240 240 760 609 555 Output Total 500 430 500 950 Balance 640 240 -260 330 109 -395 Intake, IV 160 489 455 Intake, Oral 640 240 240 600 120 100 Number 0 1 0 Bowel Movements Output, Urine 500 430 500 950 Patient 136 lb Weight Physical Exam: General: WD/ WN female in NAD; alert and oriented x 3 Neck: no JVD Chest: no hematoma Heart: RRR w/o murmur Lungs: clear bilaterally Ext: no edema Assessment/Plan Assessment/Plan * Patient continues to improve. Continue to follow her renal function and hepatic transaminases. No need for beta blockade or hydralazine at this time but we will continue to monitor. * Check free T4 since patient has an elevated TSH * Continue antibiotic therapy as recommended by Dr. Lemus with switch to oral Augmentin. * Lasix 40mg PO BID with monitoring of renal function. Continue telemetry? Yes
[2016-05-03 16:27] VITALS: BP 130/60
[2016-05-03 22:00] VITALS: BP 130/60
--- NOTE | 2016-05-04 07:45 | Discharge Summary ---
Visit Information Visit Dates Admission Date: 04/30/16 Discharge Date: 05/05/16 Hospital Course Course Attending Physician: Dr. Tony Mcmahon Primary Care Physician: SAHARA ZIMMERMAN,[facility] Hospital Course: Mrs. Rangel is an 86-year-old female with past medical history of hypertension, hyperlipidemia, coronary artery disease status post triple bypass who was brought into the ER by her son with complaints of dizziness and weakness for the past couple of days. Vitals upon presentation temperature 98.4, blood 32, his GERD rate 16, blood pressure 145/74, pulse ox 97 on 2 L cannula oxygen. Pertinent labs H&H 11.8 and 35.5,BUN/Cr 60/2.4. Initial EKG showed third-degree heart block following bradycardia. On telemetry monitoring she showed episodic sinus pauses lasting 6-10 seconds. She was initially admitted to ICU, then transferred to telemetry and treated for for the following problems: Third degree heart block requiring pacemaker: * Upon admission initial EKG showed third-degree heart block following bradycardia. She received glucagon to reverse effect of metoprolol. She was taken to the OR for pacemaker placement. Unfortunately, she had a transient episode of prolonged bradycardia and subsequently went into cardiopulmonary arrest. She was subsequently intubated in OR. Please refer to the procedure note attached for further details. * Pacemaker inserted: Medtronic Advisa MRI safe Pacemaker Model # A2DR01 with serial # [id number] * The next day she was successfully extubated. * She had a swallow evaluation done and was started on by mouth diet which he has been tolerating well. * Patient is to have pacemaker interrogation at [facility] per cardiology and follow up with Dr. Mcmahon/Piter. Hypomagnesemia * Pt was found to have low magnesium levels. * Repletion with magnesium oxide 400mg BID was initiated with repeat levels remaining on the low side, 1.2 * Therefore Magnesium chloride - Slo-Mag, 64mg daily was started. * Please check electrolytes and megnesium level at STR in 5-7 days, and reevaluate magnesium supplementation Aspiration Pneumonitis: * The patient was suspected to have aspirated during the pacemaker placement procedure, and she was treated with 3 days of IV unasyn and then transitioned to augmentin PO, 875mg to complete a total of 7 days - see CMR * Sputum grew mixed amanda and with staph aureus sensitive to augmentin. * blood cx showed no growth. Pleural effusion: * Chest x-ray performed revealed bilateral pleural effusions * She was initially treated with IV lasix, then transitioned to PO lasix 40mg PO BID. * CXR the day of discharge revealed significant interval resolution of the right pleural effusion and associated right basilar opacification. Hypertension: * At home, patient is on losartan as well as amlodipine. After having her permanent pacemaker placed, her blood pressure was well controlled and the metoprolol and amlodipine was discontinued. * Losartan 25 mg daily was resumed as she has CKD. If her BP goes up again, consider re-adding amlodipine if her BP trends up. Hyperlipidemia: * Will cont home dose of simvastatin 20mg daily. Acute Kidney injury on CKD: * Likely secondary to dehydration, creatnine level was 2.4 on admission, and trended down towards her baseline of 1.4. * We will restart losartan at the home dose of 25mg daily as it does have some protective effects for CKD patients. Complications: Complications * Unfortunately the morning of discharge, Mrs. Rangel fell with a head strike after tripping over the cord for her oxygen. She had no complaints prior to the fall, but on questioning thinks she may have also been "dizzy" prior to the fall. * She had been improving clinically, but tripped over the tubing for her oxygen and fell with a head strike around 5 AM this morning. * Fortunately, her head CT and cervical spine CT revealed no acute abnormalities - see significant CT interpretation attached. * Plan for pacemaker interrogation at [facility] upon discharge. Allergies: Coded Allergies: NO KNOWN ALLERGIES (02/20/12) Significant Procedures: PACEMAKER PLACEMENT History: This patient is an 86 year old female who presented to the ER with weakness and lightheadedness and was found to be in complete heart block with a slow ventricular escape rhythm. Procedure: This patient was prepped and draped in the usual sterile fashion after having obtained informed consent from her son. She was administered 2 gm of Ancef as prophylaxis against infection. An incision was then made in the left subclavicular space where a pacemaker pocket was dissected out. Access was attempted through the left subclavian vein via the Seldinger techinique and a 7F sheath was placed in the vein. It subsequently appeared that this was the subclavian artery however the patients poor oxygenation and low heart rate made it difficult to discern arterial from venous flow. The 7F sheath was removed and pressure held without any apparent bleeding. While access was being obtained and while in Trendelenburg the patient aspirated, as per anesthesia, and they opted to paralyze and sedate the patient and intubated her to protect her airway. It was then reported that the patient was not maintaining her BP and she did not appear to be capturing on her transcutaneous pacer. We quickly prepped the opposite (right side) and placed a 7F and the sheath in the right subclavian vein using the Seldinger technique. Two wires were placed and the sheath then removed and placed over a single wire with retention of the remaining wire for later use. The right ventricular lead was then placed in the right ventricular apex and pacing parameters were checked and confirmed to be good. We then removed the sheath and placed a second 7F sheath in the right subclavian vein and through this passed the lead to the right atrial appendage. Pacing parameters were again checked and confirmed to be within acceptable, or better, limits. The sheath was removed and the leads were sewn into place and the pacemaker was then placed in a pocket dissected inferior to the right clavicle after attaching both leads. The pacemaker pocket was sutured closed with three layers of absorbable suture. The pacemaker was again tested and the patient was brought to recovery where a chest X-ray and 12 lead ECG were obtained. Pacemaker: Medtronic Advisa MRI safe Pacemaker Model # A2DR01 with serial # [id number] Atrial Lead: Model # [id number] Serial # [id number] Voltage: 0.5V Current: 1.0mA Impedance: 585 Ohms P wave: 4.5mV Ventricular Lead: Model # [id number] Serial # [id number] Voltage: 0.4V Current: 0.6mA Impedance: 862 Ohms R wave: 11.7 The patient aspirated during this procedure and was intubated and placed on antibiotics and was transferred to the ICU. She was hemodynamically stable at the time of transfer. Disposition Summary Disposition Principal Diagnosis: Symptomatic Bradycardia with PPM placement Additional Diagnosis: HTN Discharge Disposition: other general hospital Discharge Instructions General Discharge Information Code Status: Full Code Patient's Diet: Heart healthy Patient's Activity: As tolerated Follow-Up Instructions/Appts: Please follow up with Dr. Mcmahon within 1 week of discharge. Please follow up with your PCP within 2 weeks of discharge. Instructions about pacemaker have been provided to you, please read then and ask us or your correctional therapy director if you have any qusetions. Medications at Discharge Discharge Medications: Stop taking the following medications: Amlodipine Besylate (Amlodipine Besylate) 10 MG TABLET ORAL DAILY Qty = 90 Metoprolol Tartrate (Metoprolol Tartrate) 25 MG TABLET ORAL TWICE DAILY Qty = 180 Continue taking these medications: Aspirin (Ecotrin*) 81 MG TABLET. 1 Tablet ORAL DAILY Cranberry (Cranberry) 400 MG CAPSULE 2 Tablet ORAL DAILY Escitalopram Oxalate (Lexapro) 5 MG TABLET 5 Milligram ORAL DAILY Simvastatin (Zocor*) 20 MG TABLET 1 Tablet ORAL DAILY Losartan Potassium (Losartan Potassium) 25 MG TABLET 1 Tablet ORAL DAILY Qty = 90 Start taking the following new medications: Amoxicillin/Clavulanate Potass (Amox-Clav 875-125 MG Tablet) 875 MG-125 MG TABLET 875 Milligram ORAL EVERY 12 HOURS Qty = 4 No Refills Magnesium Oxide (Magnesium Oxide) 400 MG TABLET 400 Milligram ORAL TWICE DAILY Qty = 60 No Refills Magnesium Chloride (Mag64) 64 MG TABLET. 64 Milligram ORAL DAILY Qty = 30 No Refills Furosemide (Lasix) 40 MG TABLET 40 Milligram ORAL 7:30AM & 4:30PM Qty = 60 No Refills Magnesium Oxide (Magnesium Oxide) 400 MG TABLET 400 Milligram ORAL TWICE DAILY Qty = 10 No Refills Omeprazole (Omeprazole) 20 MG CAPSULE. 40 Milligram ORAL DAILY BEFORE BREAKFAST Qty = 10 No Refills Copies To: SAHARA ZIMMERMAN,LIANNE MCMAHON MD PhD,TONY Oliveira
[2016-05-04 08:04] VITALS: BP 138/72
--- NOTE | 2016-05-04 08:23 | PN- Housestaff ---
Subjective Follow-up For: CHB s/p PPM Complaints: no complaints Tele-Events Since Last Visit: Single pacing, NSR, Subjective: Patient is seen and examined at the bedside. She denies any chest pain, shortness of breath, dizziness, nausea, vomiting, constipation, diarrhea. She was on 4 liters of oxygen saturating 96%. I advised the nurse to taper the oxygen.After walking she was saturatong 89% on 2 L. Review of Systems Constitutional: Denies: no symptoms. Cardiovascular: Denies: no symptoms. Respiratory: Denies: no symptoms. Gastrointestinal: Denies: no symptoms. Neurological/Psychological: Denies: no symptoms. Objective Last 24 Hrs of Vital Signs/I&O Vital Signs Date Time Temp Pulse Resp B/P Pulse O2 O2 Flow FiO2 Ox Delivery Rate 05/04 0901 93 Nasal 2.0L Cannula 05/04 0804 98.1 95 20 138/72 98 Nasal 4.0L Cannula 05/04 0000 Nasal 2.0L Cannula 05/03 2200 98.3 94 20 130/60 97 Nasal 2.0L Cannula 05/03 1627 97.3 91 20 130/60 96 Nasal 3.0L Cannula Intake & Output 05/04 1600 05/04 0800 05/04 0000 Intake Total 400 100 100 Output Total 1250 650 Balance -850 -550 100 Intake, Oral 400 100 100 Number 1 Bowel Movements Output, Urine 1250 650 Physical Exam General Appearance: Alert, Oriented X3, Cooperative Skin: right upper part of chest - pacemaker present, there is no localized tenderness or inflammation Cardiovascular: Normal S1, Normal S2 Lungs: bilateral basal crepts Abdomen: Soft, No Tenderness Extremities: No Clubbing, No Cyanosis, No Edema Current Medications: Current Medications Sig/Brandon Start time Last Medication Dose Route Stop Time Status Admin Acetaminophen 650 MG Q8P PRN 04/30 2014 AC 05/03 PO 0620 Amoxicillin/ 875 MG Q12 05/03 1548 AC 05/04 Clavulanate Potassium PO 05/06 0600 0929 Ampicillin Sodium/ 1,500 MG Q12 05/01 1000 DC 05/03 Sulbactam Sodium IV 0943 Sodium Chloride 100 ML Furosemide 40 MG 7:30 AM, & 4:30 PM 05/04 0730 CAN IV Furosemide 40 MG 7:30 AM, & 4:30 PM 05/04 0730 AC 05/04 PO 0638 Furosemide 40 MG ONCE ONE 05/03 1600 DC 05/03 IV 05/03 1601 1710 Heparin Sodium 5,000 UNIT Q8 05/01 1400 AC 05/04 (Porcine) SC 0600 Magnesium Oxide 400 MG BID 05/03 1030 AC 05/04 PO 0929 Omeprazole 40 MG DAILY AC 05/02 0941 AC 05/04 PO 0641 Patient Medication 1 ED .STK-MED ONE 05/04 1351 DC Teaching ED 05/04 1352 Phosphate 250 MG PC AND AT BEDTIME 05/02 0900 AC 05/04 PO 1250 Last 24 Hrs of Lab/Kyle Results Last 24 Hrs of Labs/Mics: Laboratory Tests 05/04/16 0755: Anion Gap 4 L, Estimated GFR 30 L, BUN/Creatinine Ratio 20.0, Magnesium 1.2 L , Free T4 1.45 05/04/16 0755: Total Bilirubin 1.5 H, Direct Bilirubin 0.4, AST 52 H, ALT 59 H, Alkaline Phosphatase 90, Total Protein 6.2 L, Albumin 3.2 L, CBC w Diff NO MAN DIFF REQ , RBC 3.30 L, MCV 93.8, MCH 31.0, RDW 14.3, MPV 8.3, Gran % 79.9 H, Lymphocytes % 7.8 L, Monocytes % 9.6 H, Eosinophils % 2.3, Basophils % 0.4, Absolute Granulocytes 7.6 H, Absolute Lymphocytes 0.7 L, Absolute Monocytes 0.9 H, Absolute Eosinophils 0.2, Absolute Basophils 0, PUBS MCHC 33.0 Assessment/Plan Assessment: Patient is an 86-year-old female with significant past medical history of hypertension, hyperlipidemia , coronary artery disease s/p CABG(triple vessel Bipass) brought into the ER by her son with Hx of of dizziness and weakness for the past couple of days. Plan - Third degree heart block s/p PPM - * We will continue telemetry monitoring * We'll watch for heart rate/rhythm/pacing * We will continue Tab Lasix 40mg PO BID * We will regularly monitor the creatinine Hypomagnesemia -Mg 1.2 * We will continue tablet magnesium 400 mgs BID * we will regularly monitor it Aspiration pneumonia - * We stopped Inj Unasyn on 05/03/2016 and started patient on tablet Augmentin 875 mgs PO BID * We will watch for the signs of infection * We will taper Oxygen to minimum Hypertension - * We will withhold the beta chance/hydralazine * We will watch for the blood pressure Diet -heart healthy diet DVT prophylaxis-ALP S/heparin CODE STATUS-full code Problem List: 1. Aspiration pneumonia 2. Hypomagnesemia 3. Presence of permanent cardiac pacemaker 4. Complete heart block Pain Ratin Pain Location: upper chest Pain Goal: Remain pain free Pain Plan: mild, avoid NSAIDs Tomorrow's Labs & Rationales: BEP - f/u for creatinine as pt is on lasix. DVT/Prophylaxis: mechanical, pharmacological
[2016-05-04 08:28] LABS: ABSOLUTE BASOPHIL COUNT 0 /CUMM (0.0-0.2); ABSOLUTE EOSINOPHIL COUNT 0.2 /CUMM (0.0-0.7); ABSOLUTE GRANULOCYTE CT 7.6 /CUMM (1.4-6.5); ABSOLUTE LYMPH COUNT 0.7 /CUMM (1.2-3.4); ABSOLUTE MONOCYTE COUNT 0.9 /CUMM (0.10-0.60); BASOPHIL % 0.4 % (0.0-2.0); EOSINOPHIL % 2.3 % (0-5); GRANULOCYTE % 79.9 % (42.2-75.2); HEMATOCRIT 30.9 % (37-47); MEAN CORPUSCULAR VOLUME 93.8 FL (81.0-99.0); MEAN PLATELET VOLUME 8.3 FL (7.4-10.4); PLATELET COUNT 151 /CUMM (130-400); RBC DISTRIBUTION WIDTH 14.3 % (11.5-14.5); WHITE BLOOD CELL COUNT 9.5 /CUMM (4.8-10.8)
[2016-05-04] MEDS ORDERED: AMOX-CLAV 875-1 EACH PO (15:13)
[2016-05-04] MEDS ORDERED: LASIX40 M1 PO (15:13)
[2016-05-04] MEDS ORDERED: OMEPRAZOLE20 M2 PO (15:13)
[2016-05-04] MEDS ORDERED: MAGNESIUM OXID400 M1 PO (15:13)
[2016-05-04] MEDS ORDERED: AMLODIPINE BESY10 M1 PO (15:30)
[2016-05-04] MEDS ORDERED: METOPROLOL TART25 M1 PO (15:31)
[2016-05-04] MEDS ORDERED: LOSARTAN POTASS25 M1 PO (15:31)
[2016-05-04 16:44] VITALS: BP 126/64
--- NOTE | 2016-05-04 20:20 | PN- Cardiology ---
Subjective Subjective: No complaints. Denies any chest discomfort, palpitations, shortness of breath, etc. Denies any issues with her pacemaker implantation site (right chest region). Properly functioning pacemaker rhythm on telemetry. Objective Vital Signs and I&Os Vital Signs Date Time Temp Pulse Resp B/P Pulse O2 O2 Flow FiO2 Ox Delivery Rate 05/04 1726 97 Nasal 1.0L Cannula 05/04 1644 97.9 89 20 126/64 97 Nasal 1.0L Cannula 05/04 0901 93 Nasal 2.0L Cannula 05/04 0804 98.1 95 20 138/72 98 Nasal 4.0L Cannula 05/04 0000 Nasal 2.0L Cannula 05/03 2200 98.3 94 20 130/60 97 Nasal 2.0L Cannula Intake & Output 05/04 1600 05/04 0800 05/04 0000 05/03 1600 05/03 0805/03 0000 Intake Total 400 100 100 640 240 240 Output Total 1250 650 500 Balance -850 -550 100 640 240 -260 Intake, Oral 400 100 100 640 240 240 Number 1 0 Bowel Movements Output, Urine 1250 650 500 Physical Exam: Well-developed, well-nourished elderly female in no acute distress. Vital signs: See above. Lungs: Decreased breath sounds at the bases. Heart: S1, S2 with no murmur, gallop, or rub appreciated. Extremities: No edema. Skin: Pacemaker insertion site healing well, clean, dry. Current Medications: Current Medications Sig/Brandon Start time Last Medication Dose Route Stop Time Status Admin Acetaminophen 650 MG Q8P PRN 04/30 2014 AC 05/03 PO 0620 Amoxicillin/ 875 MG Q12 05/03 1548 AC 05/04 Clavulanate Potassium PO 05/06 06 0929 Furosemide 40 MG 7:30 AM, & 4:30 PM 05/04 0730 AC 05/04 PO 1537 Heparin Sodium 5,000 UNIT Q8 05/01 1400 AC 05/04 (Porcine) SC 1537 Magnesium Oxide 400 MG BID 05/03 1030 AC 05/04 PO 0929 Omeprazole 40 MG DAILY AC 05/02 0941 AC 05/04 PO 0641 Patient Medication 1 ED .STK-MED ONE 05/04 1351 DC Teaching ED 05/04 1352 Phosphate 250 MG PC AND AT BEDTIME 05/02 0900 AC 05/04 PO 1853 Results Last 48 Hrs of Labs/Mics: Laboratory Tests 05/04/16 0755: Anion Gap 4 L, Estimated GFR 30 L, BUN/Creatinine Ratio 20.0, Magnesium 1.2 L , Free T4 1.45 05/04/16 0755: Total Bilirubin 1.5 H, Direct Bilirubin 0.4, AST 52 H, ALT 59 H, Alkaline Phosphatase 90, Total Protein 6.2 L, Albumin 3.2 L, CBC w Diff NO MAN DIFF REQ , RBC 3.30 L, MCV 93.8, MCH 31.0, RDW 14.3, MPV 8.3, Gran % 79.9 H, Lymphocytes % 7.8 L, Monocytes % 9.6 H, Eosinophils % 2.3, Basophils % 0.4, Absolute Granulocytes 7.6 H, Absolute Lymphocytes 0.7 L, Absolute Monocytes 0.9 H, Absolute Eosinophils 0.2, Absolute Basophils 0, PUBS MCHC 33.0 05/03/16 0845: Anion Gap 7, Estimated GFR 33 L, BUN/Creatinine Ratio 21.3, Phosphorus 3.0, Magnesium 1.2 L, CBC w Diff MAN DIFF ORDERED, RBC 3.33 L, MCV 93.4, MCH 31.3 H, RDW 13.6, MPV 9.5, Gran % 84.9 H, Lymphocytes % 7.2 L, Monocytes % 4.2, Eosinophils % 3.5, Basophils % 0.2, Absolute Granulocytes 8.6 H, Absolute Lymphocytes 0.7 L, Absolute Monocytes 0.4, Absolute Eosinophils 0.4, Absolute Basophils 0, Platelet Estimate VERIFIED BY SMEAR, Polychromasia 1+, PUBS MCHC 33.5 Assessment/Plan Assessment/Plan Mrs. Yenny Rangel is an 86-year-old femalehe a history of HTN, CKD, HLD, CAD s/p CABG who presented with increasing weakness and fatigue and intermittent lightheadedness over the prior 48 hours and who was discovered to be in complete heart block requiring emergent permanent pacemaker implantation on 05/02/2016. She continues to improve clinically and the plan will be to continue to increase her activity. Need to replete her hypomagnesemia. Hopefully, she will be ready for discharge to home in the a.m. as long as she remains asymptomatic and hemodynamically stable. Continue telemetry? Yes
[2016-05-04 22:55] VITALS: BP 120/50
--- NOTE | 2016-05-05 05:10 | Event Note ---
Event Note Event Note: Around 5 AM, rapid response was called as patient was found on the floor next to the bed. According to her nurse, patient usually sits in the chair and calls for help if she wants to move so this was unusual for her. Patient reported that she hit her head. She denied significant pain and was at her baseline mental status after the incident. Vitals were stable and as follows: temperature 97.4, BP 120/ 64, HR 64, RR 22 and SpO2 95% on room air. Fingerstick glucose was 120. Patient was escorted back to chair. STAT CT Head and C-Spine W/O IV Contrast was ordered.
[2016-05-05 05:13] VITALS: BP 120/64
[2016-05-05 05:29] VITALS: BP 126/58
--- NOTE | 2016-05-05 06:31 | CT SCAN REPORT ---
EXAMINATION: CT CERV SPINE WO IV CONTRAST, CT HEAD WO IV CONTRAST CLINICAL INDICATION: S/p fall with head injury COMPARISON: CT head 01/11/2015 TECHNIQUE: [employer] images were obtained. A CT acquisition of the head and cervical spine was performed. Data was reformatted into multiplanar images at the acquisition workstation. DLP: 879.09 mGy-cm. FINDINGS: Head: There is no acute intracranial hemorrhage or abnormal extra axial collection. No intracranial mass effect or midline shift. Lateral and third ventricles are normal. No hydrocephalus. Ill-defined foci of hypoattenuation are visualized within the periventricular white matter that most likely represent a chronic manifestation of small vessel ischemia. 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 Mei-white matter differentiation is otherwise preserved and there is no evidence of acute territorial infarct. The calvarium and skull base are intact. Mastoid air cells and middle ear cavities are well aerated. Visualized paranasal sinuses are well-aerated. Cervical spine: There is near-anatomic alignment and position of the vertebral bodies and posterior elements of the cervical spine in the sagittal dimension. Vertebral body heights are preserved. There is an intraosseous hemangioma involving the left C1 lateral mass. There is no evidence of acute fracture. No abnormal prevertebral soft tissue swelling. There is loss of intervertebral disc height with associated sclerotic degenerative endplate changes and disc osteophyte spurring at multiple levels within the cervical spine related to degenerative disc disease. There are varying degrees of neuroforaminal encroachment related to uncovertebral joint hypertrophy and facet degenerative change. There appears be moderate canal stenosis at C3-C4 related to multifactorial degenerative changes and at least mild canal stenosis at the levels of C4-C5 and C5-C6. Heavily calcified atheromatous plaque involves both carotid bifurcations. There is a low density cyst or nodules within the right lobe of the thyroid gland measuring 1.1 cm in diameter. Soft tissues of the neck are otherwise unremarkable. Pleural-parenchymal scarring is visualized at the apices of both lungs. IMPRESSION: Head: No acute intracranial hemorrhage. There are chronic small vessel ischemic changes within the periventricular white matter and right cerebellum. Grossly no evidence of acute territorial infarct. Cervical spine: There is no evidence of acute cervical spinal fracture. There is at least moderate canal stenosis at C3-C4 and mild canal stenosis at the levels of C4-C5 and C5-C6. If there is a clinical concern for compressive myelopathy then a dedicated cervical spine MRI should be obtained. There is heavily calcified atheromatous plaque involving both carotid bifurcations and a solitary cyst or nodule within the right lobe of the thyroid gland measuring 1.1 cm in diameter.
--- NOTE | 2016-05-05 07:24 | PN- Housestaff ---
See Addendum Subjective Follow-up For: CHB s/p PPM Complaints: no complaints Tele-Events Since Last Visit: Single pacing, NSR, 71-89, Today morning at 5:10, patient tripped and fall and hit her head. She denies any chest pain, palpitation, headache and dizziness, diarrhea, anorexia. Ct scan of head and Cervical spinal doesnt show any signs of trauma. Subjective: patient is seen and examined at bed side. she was oriented to time place and person.She denies any chest pain, palpitation, headache and dizziness, diarrhea, anorexia. Review of Systems Constitutional: Denies: no symptoms. Cardiovascular: Denies: no symptoms. Respiratory: Denies: no symptoms. Gastrointestinal: Denies: no symptoms. Neurological/Psychological: Denies: no symptoms. Objective Last 24 Hrs of Vital Signs/I&O Vital Signs Date Time Temp Pulse Resp B/P Pulse O2 O2 Flow FiO2 Ox Delivery Rate 05/05 0846 97.3 85 20 120/50 95 Nasal 1.0L Cannula 05/05 0529 98.3 68 18 126/58 05/05 0529 98.3 68 18 126/58 98 Nasal 1.0L Cannula 05/05 0515 96 Nasal 2.0L Cannula 05/05 0513 97.4 64 22 120/64 95 Room Air 05/05 0000 96 Nasal 1.0L Cannula 05/04 2255 97.5 84 18 120/50 98 Nasal Cannula 05/04 1726 97 Nasal 1.0L Cannula 05/04 1644 97.9 89 20 126/64 97 Nasal 1.0L Cannula Intake & Output 05/05 1600 05/05 0800 05/05 0000 Intake Total 100 100 Output Total 600 500 Balance -500 -400 Intake, Oral 100 100 Output, Urine 600 500 Physical Exam General Appearance: Alert, Oriented X3, Cooperative, No Acute Distress Skin: PPM is in right upper quadrants of chest. Cardiovascular: Normal S1, Normal S2 Lungs: Clear to Auscultation, Normal Air Movement Abdomen: Soft, No Tenderness Neurological: Normal Speech, Strength at 5/5 X4 Ext Extremities: No Clubbing, No Cyanosis, No Edema Vascular: Normal Pulses, Pulses Symmetrical Current Medications: Current Medications Sig/Brandon Start time Last Medication Dose Route Stop Time Status Admin Acetaminophen 650 MG Q8P PRN 04/30 2014 AC 03/29 PO 0620 Amoxicillin/ 875 MG Q12 05/03 1548 AC 05/04 Clavulanate Potassium PO 05/06 0600 2220 Furosemide 40 MG 7:30 AM, & 4:30 PM 05/04 0730 AC 05/05 PO 0615 Heparin Sodium 5,000 UNIT Q8 05/01 1400 AC 05/05 (Porcine) SC 0600 Magnesium Oxide 400 MG BID 05/03 1030 AC 05/04 PO 2219 Omeprazole 40 MG DAILY AC 05/02 0941 AC 05/05 PO 0615 Patient Medication 1 ED .STK-MED ONE 05/04 1351 DC Teaching ED 05/04 1352 Phosphate 250 MG PC AND AT BEDTIME 05/02 0900 AC 05/04 PO 2100 Assessment/Plan Assessment: Patient is an 86-year-old female with significant past medical history of hypertension, hyperlipidemia , coronary artery disease s/p CABG(triple vessel Bipass) brought into the ER by her son with Hx of of dizziness and weakness for the past couple of days. Plan - Discharge today Third degree heart block s/p PPM - * We will continue telemetry monitoring * We'll watch for heart rate/rhythm/pacing * We will continue to give Tab Lasix 40mg PO BID * We will regularly monitor the creatinine Hypomagnesemia -Mg 1.2 (05/05/2016) * We will continue tablet magnesium 400 mgs BID * we will regularly monitor it. Aspiration pneumonia - * We stopped Inj Unasyn on 05/03/2016 and started patient on tablet Augmentin 875 mgs PO BID x total 7 days * We will watch for the signs of infection * We will taper Oxygen to minimum Hypertension - * We will withhold the beta chance/hydralazine and planning to restart Losartan * We will watch for the blood pressure Diet -heart healthy diet DVT prophylaxis-ALP S/heparin CODE STATUS-full code Problem List: 1. Aspiration pneumonia 2. Hypomagnesemia 3. Presence of permanent cardiac pacemaker 4. Complete heart block 5. Acute renal failure Pain Ratin Pain Location: not applicable Pain Goal: Remain pain free Pain Plan: mild, avoid NSAIDs Tomorrow's Labs & Rationales: BEP - to look for creatinine DVT/Prophylaxis: mechanical, pharmacological
[2016-05-05 08:46] VITALS: BP 120/50
--- NOTE | 2016-05-05 08:57 | NUR ---
0512 PATIENT WAS NOTED SITTING ON THE FLOOR.AT THE BED SIDE.ALERT AND VEBALLY RESPONSIVE.DENIES PAIN OR DISCOMFORT.VITALS WITH IN NORMAL.RAPID RESPONSED. ACCORDING TO PATIENT SHE SLID OUT OF THE RECLINER,WHEN SHE TRIED TO GET UP TO USE THE BATHROOM. ORDERS GIVEN FOR CT SCAN OF THE HEAD.NOTED AND CARRIED.
--- NOTE | 2016-05-05 10:36 | PN- Cardiology ---
Subjective Subjective: Notified by the house staff that Mrs. Rangel fell this morning with a head strike at around 5 AM. She apparently tripped over the cord for her oxygen. She had no complaints prior to the fall, but on questioning thinks she may have also been "dizzy" prior to the fall. According to nursing, she also mentioned that she had a cough with bloody sputum during the night. No significant arrhythmia/heart block were detected on telemetry. Objective Vital Signs and I&Os Vital Signs Date Time Temp Pulse Resp B/P Pulse O2 O2 Flow FiO2 Ox Delivery Rate 05/05 0846 97.3 85 20 120/50 95 Nasal 1.0L Cannula 05/05 0529 98.3 68 18 126/58 05/05 0529 98.3 68 18 126 98 Nasal 1.0L Cannula 05/05 0515 96 Nasal 2.0L Cannula 05/05 0513 97.4 64 22 120/64 95 Room Air 05/05 0000 96 Nasal 1.0L Cannula 05/04 2255 97.5 84 18 120/50 98 Nasal Cannula 05/04 1726 97 Nasal 1.0L Cannula 05/04 1644 97.9 89 20 126/64 97 Nasal 1.0L Cannula Intake & Output 05/05 1600 05/05 0800 05/05 0000 05/04 1600 05/04 0800 05/04 0000 Intake Total 100 100 400 100 100 Output Total 562 156 8601 650 Balance -500 -400 -850 -550 100 Intake, Oral 100 100 400 100 100 Number 1 Bowel Movements Output, Urine 434 374 3853 650 Physical Exam: Well-developed, well-nourished elderly female in no acute distress. Vital signs: See above. Lungs: Decreased breath sounds at the bases. Heart: S1, S2 with no murmur, gallop, or rub appreciated. Extremities: No edema. Skin: Pacemaker insertion site healing well, clean, dry. Current Medications: Current Medications Sig/Brandon Start time Last Medication Dose Route Stop Time Status Admin Acetaminophen 650 MG Q8P PRN 04/30 2014 AC 05/03 PO 0620 Amoxicillin/ 875 MG Q12 05/03 1548 AC 05/05 Clavulanate Potassium PO 05/06 0600 0921 Furosemide 40 MG 7:30 AM, & 4:30 PM 05/04 0730 AC 05/05 PO 0615 Heparin Sodium 5,000 UNIT Q8 05/01 1400 AC 05/05 (Porcine) SC 0600 Magnesium Oxide 400 MG BID 05/03 1030 AC 05/05 PO 0921 Omeprazole 40 MG DAILY AC 05/02 0941 AC 05/05 PO 0615 Patient Medication 1 ED .STK-MED ONE 05/04 1351 DC Teaching ED 05/04 1352 Phosphate 250 MG PC AND AT BEDTIME 05/02 0900 AC 05/05 PO 0921 Results Last 48 Hrs of Labs/Mics: Laboratory Tests 05/04/16 0755: Anion Gap 4 L, Estimated GFR 30 L, BUN/Creatinine Ratio 20.0, Magnesium 1.2 L , Free T4 1.45 05/04/16 0755: Total Bilirubin 1.5 H, Direct Bilirubin 0.4, AST 52 H, ALT 59 H, Alkaline Phosphatase 90, Total Protein 6.2 L, Albumin 3.2 L, CBC w Diff NO MAN DIFF REQ , RBC 3.30 L, MCV 93.8, MCH 31.0, RDW 14.3, MPV 8.3, Gran % 79.9 H, Lymphocytes % 7.8 L, Monocytes % 9.6 H, Eosinophils % 2.3, Basophils % 0.4, Absolute Granulocytes 7.6 H, Absolute Lymphocytes 0.7 L, Absolute Monocytes 0.9 H, Absolute Eosinophils 0.2, Absolute Basophils 0, PUBS MCHC 33.0 Recent Imaging Studies: Head CT (05/05/2016): No acute intracranial hemorrhage. There are chronic small vessel ischemic changes within the periventricular white matter and right cerebellum. Grossly no evidence of acute territorial infarct. Cervical spine CT (05/05/2016): There is no evidence of acute cervical spinal fracture. There is at least moderate canal stenosis at C3-C4 and mild canal stenosis at the levels of C4-C5 and C5-C6. If there is a clinical concern for compressive myelopathy then a dedicated cervical spine MRI should be obtained. There is heavily calcified atheromatous plaque involving both carotid bifurcations and a solitary cyst or nodule within the right lobe of the thyroid gland measuring 1.1 cm in diameter. Assessment/Plan Assessment/Plan Mrs. Yenny Rangel is an 86-year-old femalehe a history of HTN, CKD, HLD, CAD s/p CABG who presented with increasing weakness and fatigue and intermittent lightheadedness over the prior 48 hours and who was discovered to be in complete heart block requiring emergent permanent pacemaker implantation on 05/02/2016. She had been improving clinically, but tripped over the tubing for her oxygen and fell with a head strike around 5 AM this morning. Fortunately, her head CT and cervical spine CT revealed no acute abnormalities. We will interrogate her device to be sure it is functioning properly and if she remains asymptomatic and clinically stable we'll plan for discharge. Continue telemetry? Yes
--- NOTE | 2016-05-05 11:08 | RADIOLOGY REPORT ---
EXAMINATION: XR PORTABLE CHEST CLINICAL INFORMATION: Cough with hemoptysis. Being treated for aspiration. Status post fall last night. COMPARISON: Chest x-ray of 05/02/2016 and multiple previous x-rays dated back to 01/11/2015. CT chest of 08/02/2015. TECHNIQUE: Portable AP view of the chest was obtained. FINDINGS: Right-sided bipolar pacemaker is unchanged in configuration with the pacer leads terminating in the expected locations of the right atrium and right ventricle. The sternotomy wires are intact and unchanged in configuration. The cardiomediastinal silhouette is stable with mild cardiomegaly. The lungs are mildly hypoexpanded. There is significant interval resolution of haziness in the right mid and lower lung field as seen on the last chest x-ray suggesting interval resolution of pleural effusion. Small left pleural effusion is unchanged. Minimal left basilar atelectasis. No evidence of pulmonary edema or pneumothorax. No displaced rib fractures are seen. Diffuse osseous demineralization. Mild degenerative changes in the bilateral shoulders. Note is again made of a moderate-sized hiatal hernia. IMPRESSION: 1. Significant interval resolution of the right pleural effusion and associated right basilar opacification. 2. Stable left pleural effusion. Minimal left basilar atelectasis. No new focal airspace opacities. 3. Known moderate-sized hiatal hernia is unchanged. 4. No displaced rib fractures or pneumothorax.
--- NOTE | 2016-05-05 13:47 | PN- Pulmonary ---
Subjective HPI/Critical Care Issues: Mild cough with blood tinged sputum this am but none since then Today morning at 5:10, patient tripped and fall and hit her head. She denies any chest pain, palpitation, headache and dizziness, diarrhea, anorexia. Ct scan of head and Cervical spinal doesnt show any signs of trauma. Subjective: patient is seen and examined at bed side. she was oriented to time place and person.She denies any chest pain, palpitation, headache and dizziness, diarrhea, anorexia. Review of Systems Constitutional: Denies: no symptoms. Cardiovascular: Denies: no symptoms. Respiratory: Denies: no symptoms. Gastrointestinal: Denies: no symptoms. Neurological/Psychological: Denies: no symptoms. Objective Current Medications: Current Medications Sig/Brandon Start time Last Medication Dose Route Stop Time Status Admin Acetaminophen 650 MG Q8P PRN 04/30 2014 AC 05/03 PO 0620 Amoxicillin/ 875 MG Q12 05/03 1548 AC 05/05 Clavulanate Potassium PO 05/06 0600 0921 Furosemide 40 MG 7:30 AM, & 4:30 PM 05/04 0730 AC 05/05 PO 0615 Heparin Sodium 5,000 UNIT Q8 05/01 1400 AC 05/05 (Porcine) SC 0600 Magnesium Oxide 400 MG BID 05/03 1030 AC 05/05 PO 0921 Omeprazole 40 MG DAILY AC 05/02 0941 05/05 PO 0615 Patient Medication 1 ED .STK-MED ONE 05/04 1351 LA Teaching ED 05/04 1352 Phosphate 250 MG PC AND AT BEDTIME 05/02 0900 05/05 PO 0921 Laboratory Tests 05/04 05/04 0755 0755 Chemistry Sodium (137 - 145 mmol/L) 132 L Potassium (3.5 - 5.1 mmol/L) 4.1 Chloride (98 - 107 mmol/L) 95 L Carbon Dioxide (22 - 30 mmol/L) 33 H Anion Gap (5 - 16) 4 L BUN (7 - 17 mg/dL) 32 H Creatinine (0.5 - 1.0 mg/dL) 1.6 H Estimated GFR (>60 ml/min) 30 L BUN/Creatinine Ratio (7 - 25 %) 20.0 Magnesium (1.6 - 2.3 mg/dL) 1.2 L Total Bilirubin (0.2 - 1.3 mg/dL) 1.5 H Direct Bilirubin (< 0.4 mg/dL) 0.4 AST (14 - 36 U/L) 52 H ALT (9 - 52 U/L) 59 H Alkaline Phosphatase (<127 U/L) 90 Total Protein (6.3 - 8.2 g/dL) 6.2 L Albumin (3.5 - 5.0 g/dL) 3.2 L Free T4 (0.85 - 1.93 ng/dL) 1.45 Hematology CBC w Diff NO MAN DIFF REQ WBC (4.8 - 10.8 /CUMM) 9.5 RBC (4.20 - 5.40 /CUMM) 3.30 L Hgb (12.0 - 16.0 G/DL) 10.2 L Hct (37 - 47 %) 30.9 L MCV (81.0 - 99.0 FL) 93.8 MCH (27.0 - 31.0 PG) 31.0 RDW (11.5 - 14.5 %) 14.3 Plt Count (130 - 400 /CUMM) 151 MPV (7.4 - 10.4 FL) 8.3 Gran % (42.2 - 75.2 %) 79.9 H Lymphocytes % (20.5 - 51.1 %) 7.8 L Monocytes % (1.7 - 9.3 %) 9.6 H Eosinophils % (0 - 5 %) 2.3 Basophils % (0.0 - 2.0 %) 0.4 Absolute Granulocytes (1.4 - 6.5 /CUMM) 7.6 H Absolute Lymphocytes (1.2 - 3.4 /CUMM) 0.7 L Absolute Monocytes (0.10 - 0.60 /CUMM) 0.9 H Absolute Eosinophils (0.0 - 0.7 /CUMM) 0.2 Absolute Basophils (0.0 - 0.2 /CUMM) 0 PUBS MCHC (33.0 - 37.0 G/DL) 33.0 Vital Signs & I&O Last 24 Hrs of Vitals and I&O: Vital Signs Date Time Temp Pulse Resp B/P Pulse O2 O2 Flow FiO2 Ox Delivery Rate 05/05 0846 97.3 85 20 120/50 95 Nasal 1.0L Cannula 05/05 528 98.3 68 18 126/58 05/05 528 98.3 68 18 126/58 98 Nasal 1.0L Cannula 05/05 0515 96 Nasal 2.0L Cannula 05/05 0513 97.4 64 22 120/64 95 Room Air 05/05 0000 96 Nasal 1.0L Cannula 05/04 2255 97.5 84 18 120/50 98 Nasal Cannula 05/04 1726 97 Nasal 1.0L Cannula 05/04 1644 97.9 89 20 126/64 97 Nasal 1.0L Cannula Intake & Output 05/05 1600 05/05 0800 05/05 0000 Intake Total 100 100 Output Total 201 600 500 Balance -201 -500 -400 Intake, Oral 100 100 Output, Stool 1 Output, Urine 200 600 500 Impression/Plan Impression/Plan Impression/Plan: On physical exam Extubated on nasal cannula alert awake and oriented 3 Neck supple no JVD Chest decreased breath sounds with crackles heard Heart S1-S2 was heard Pacemaker incision site normal Abdominal exam soft bowel sounds were heard No significant edema IMPRESSION This is an elderly lady with history of hypertension chronic kidney disease ischemic heart with previous CABG, hyperlipidemia came into the emergency room with 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 In the interim she has * Resolved Acute respiratory failure now extubated * Probable aspiration pneumonitis in a lady with very large hiatal hernia * Chronic kidney disease with mild acute pulmonary edema, improving * * Bilateral effusion due to chf now better * Resolving Acute on chronic kidney disease due to multiple issues including transient hypotension, ARB with third-degree heart block * History of hypertension, hyperlipidemia, coronary artery disease on appropriate medication RECOMMENDATION * Po augmentin for two more days and dc * Po lasix * OT PT * Prob needs rehab * Wean oxygen Will follow prn
[2016-05-05] MEDS ORDERED: AMOX-CLAV 875-1 EACH PO ×2 (15:19→16:10)
[2016-05-05] MEDS ORDERED: MAGNESIUM OXID400 M1 PO (16:13)
[2016-05-05] MEDS ORDERED: MAG6464 MG PO (16:17)
[2016-05-05] MEDS ORDERED: LASIX40 M1 PO (16:18)
[2016-05-05 17:09] VITALS: BP 120/50
== END 2016-05-05 17:20 | DRG 242 ==
LOC: ENRESERVTM → ENRESERVDT → ERH 11:12 → 1NO 18:22 → ERHI 18:22 → ENPENDDIS 18:22 → 1NO 18:22 → CRI 18:22 → 1NO 05-02 14:38
PROVIDERS: Emergency Medicine; Internal Medicine; Physician Assistant Surgical; Student in an Organized Health Care Education/Training Program; ADMIT Internal Medicine Cardiovascular Disease
PROC: 02H63JZ Insertion of Pacemaker Lead into Right Atrium, Percutaneous Approach (ICD-10-PCS; principal; 2016-04-30)
PROC: 0JH606Z Insertion of Pacemaker, Dual Chamber into Chest Subcutaneous Tissue and Fascia, Open Approach (ICD-10-PCS; principal; 2016-04-30)
PROC: 5A1935Z Respiratory Ventilation, Less than 24 Consecutive Hours (ICD-10-PCS; principal; 2016-04-30)
PROC: 0BH17EZ Insertion of Endotracheal Airway into Trachea, Via Natural or Artificial Opening (ICD-10-PCS; principal; 2016-04-30)
PROC: 02HK3JZ Insertion of Pacemaker Lead into Right Ventricle, Percutaneous Approach (ICD-10-PCS; principal; 2016-04-30)
DX: I44.2 Atrioventricular block, complete (principal); J96.00 Acute respiratory failure, unspecified whether with hypoxia or hypercapnia; J69.0 Pneumonitis due to inhalation of food and vomit; N17.9 Acute kidney failure, unspecified; E86.0 Dehydration; Z95.1 Presence of aortocoronary bypass graft; I97.710 Intraoperative cardiac arrest during cardiac surgery; E83.42 Hypomagnesemia; J95.89 Other postprocedural complications and disorders of respiratory system, not elsewhere classified; E78.5 Hyperlipidemia, unspecified; I25.10 Atherosclerotic heart disease of native coronary artery without angina pectoris; Y65.8 Other specified misadventures during surgical and medical care; I12.9 Hypertensive chronic kidney disease with stage 1 through stage 4 chronic kidney disease, or unspecified chronic kidney disease; N18.9 Chronic kidney disease, unspecified; K44.9 Diaphragmatic hernia without obstruction or gangrene
CPT/HCPCS: 1NSP; 87184; CCU; 36415; 82436; 87070; 87086; 87147; 93005; 93010; 94799; 96360; 96361; 96365; 96366; 96375; 96376; 97110-GO; 97116-GO; 97161-GP; 97530-GO; 99291; C1785; C1898; J0690; J1610; J1644; J1940; J2060; J2405; J3010; J7042

== ENCOUNTER 2017-05-10 11:11 | Inpatient (IN) | payer OTHER ==
[~2017-05-10] VITALS: Ht 149.9 cm; Wt 67.4 kg
[~2017-05-10 11:11] MED LIST changes: +AMOX-CLAV 875-1 EACH PO; +LASIX40 M1 PO; +LEXAPRO5 M1 PO; +MAG6464 MG PO; +MAGNESIUM OXID400 M1 PO; +METOPROLOL TART25 M1 PO; +OMEPRAZOLE20 M2 PO; +ZOCOR20 M1 PO
--- NOTE | 2017-05-10 12:30 | ED UPPER/LOWER EXTREMITY COMPL ---
History of Present Illness General Chief Complaint: Lower Extremity Problems Stated Complaint: RIGHT KNEE PAIN Source: patient, family Exam Limitations: poor historian Vital Signs & Intake/Output Vital Signs & Intake/Output Vital Signs Date Time Temp Pulse Resp B/P B/P Pulse O2 O2 Flow FiO2 Mean Ox Delivery Rate 05/10 1436 97.6 68 18 139/63 97 Room Air 05/10 1124 96.2 67 20 145/64 96 Room Air Allergies Coded Allergies: NO KNOWN ALLERGIES (02/20/12) Reconcile Medications Amlodipine Besylate 10 MG TABLET 1 TAB PO DAILY HEART (Reported) Aspirin (Ecotrin*) 81 MG TABLET.DR 1 TAB PO DAILY HEART/BLOOD (Reported) Cholecalciferol (Vitamin D3) 1,000 UNIT TABLET 1 TAB PO DAILY VITAMIN SUPPORT (Reported) Cranberry 400 MG CAPSULE 2 TAB PO DAILY SUPPLEMENT (Reported) Cyanocobalamin (Vitamin B-12) 1,000 MCG TABLET 1 TAB PO DAILY VITAMIN SUPPORT (Reported) Escitalopram Oxalate (Lexapro) 5 MG TABLET 5 MG PO DAILY ANXIETY (Reported) Losartan Potassium 25 MG TABLET 1 TAB PO DAILY HTN (Reported) Metoprolol Tartrate 25 MG TABLET 1 TAB PO DAILY HEART (Reported) Simvastatin (Zocor*) 20 MG TABLET 1 TAB PO DAILY CHOLESTEROL (Reported) Triage Note: PER SON AND PT 3 MONTH HX OF RT THIGH/KNEE PAIN WITH NO INURY, WEEK OF APRIL SPASMS TO RT THIGH DIFF AMBULATING, ON EATER SUNDAY NEEDED TO BE HELPED UP, THIS AM CALLED SON BECAUSE FELL AND PAIN INTENSE TO RT KNEE, PT HAS APPT 05/15 FOR ORTHO REFERRAL Triage Nurses Notes Reviewed? yes Onset: Gradual Duration: getting worse Timing: recent history Severity: severe Severity Numbers: 7 HPI: Patient is a 87-year-old female with past medical history of hypertension, hyperlipidemia, coronary artery disease status post triple bypass with a history of third-degree heart block status post pacemaker placement who presents emergency room with son for concerns of a 3 month history of gradually worsening right upper leg thigh and right knee pain. History is limited due to patient being a poor historian however she lives alone in one of her sons private residence in which his son states that patient began complaining in January of right thigh pain that has progressively worsened where today she the son received a phone call in which the patient was crying due to the pain and inability to ambulate Denies any mechanism of injury or recent falls denies any extremity swelling paresthesia denies any hip pain abdominal pain. Patient states that at rest she has no symptoms of pain (Oscar Holloway) Past History Travel History Traveled to [place] past 21 day No Medical History Any Pertinent Medical History? see below for history Neurological: NONE EENT: NONE Cardiovascular: CAD, hypertension, hyperlipidemia, TRIPLE BYPASS Respiratory: NONE Gastrointestinal: NONE Hepatic: NONE Renal: RENAL INSUFFICIENCY Musculoskeletal: ARTHRITIS Psychiatric: NONE Endocrine: NONE Blood Disorders: NONE Cancer(s): NONE MANAGER EQUIPMENT/Reproductive: NONE History of MRSA: No History of VRE: No History of CDIFF: No Surgical History Surgical History: S/P CABG 2010, PACEMAKER Psychosocial History Who do you live with Patient/Self Services at Home None What is your primary language Guatemalan Tobacco Use: Never used Family History Family History, If Any: BROTHER Coronary artery disease Hx Contributory? No (Oscar Holloway) Review of Systems Review of Systems Constitutional: Reports: no symptoms. EENTM: Reports: no symptoms. Respiratory: Reports: no symptoms. Cardiovascular: Reports: no symptoms. Gastrointestinal/Abdominal: Reports: no symptoms. Genitourinary: Reports: no symptoms. Musculoskeletal: Reports: see HPI, muscle pain. Skin: Reports: no symptoms. Neurological/Psychological: Reports: no symptoms. Hematologic/Endocrine: Reports: no symptoms. Immunological: Reports: no symptoms. All Other Systems: Reviewed and Negative (Oscar Holloway) Physical Exam Physical Exam General Appearance: no apparent distress, alert, comfortable Head: atraumatic Eyes: Bilateral: normal appearance. Ears, Nose, Throat: hearing grossly normal Neck: normal inspection Cardiovascular/Respiratory: no respiratory distress Peripheral Pulses: 2+ dorsalis pedis (R) Neurologic/Tendon: normal sensation, normal motor functions, normal tendon functions, responds to pain, no evidence tendon injury, no pulse deficit Skin: intact, normal color, warm/dry Comments: Right hip normal inspection nontender patient able to perform straight leg raise with mild pain to the anterior quadriceps region Right knee full active range of motion with mild pain localized to the anterior quadriceps region Right lower extremity dermatomes intact pedal pulse +2 Diagram Legs Front/Back 1) Normal inspection quadriceps point tenderness noted upon palpation (Oscar Holloway) Progress Differential Diagnosis: arterial insufficiency, cellulitis, compartment syndrome , contusion, dislocation, DVT, fracture, gout, septic arthritis, sprain, tendon injury Plan of Care: Orders Procedure Date/time Status Nothing by Mouth 05/11 B Active CBC WITHOUT DIFFERENTIAL 05/11 599 Active BASIC ELECTROLYTES PLUS BUN&CR 05/11 599 Active Heart Healthy Diet 05/10 D Complete Pathway - chart 05/10 1625 Active PT Evaluate & Treat 05/10 162 Active Saline Lock 05/10 1624 Active Pathway - chart 05/10 1624 Active House Staff 05/10 1624 Active Patient Data 05/10 1547 Active Add-on Test (ER Only) 05/[address] LOWER EXT WO IV CONTRAST 05/10 1543 Active ED Holding Orders 05/10 1541 Active Admit to inpatient 05/10 1541 Active Vital Signs 05/10 1541 Active Code Status 05/10 1541 Active PARTIAL THROMBOPLASTIN TIME 05/10 1452 Complete PROTHROMBIN TIME 05/10 1452 Complete TYPE & SCREEN (NOT X-MATCH) 05/10 1452 Active URINALYSIS 05/10 1432 Active TROPONIN LEVEL 05/10 1432 Complete COMPREHENSIVE METABOLIC PANEL 05/10 1432 Complete CBC WITHOUT DIFFERENTIAL 05/10 1432 Complete EKG 05/10 1432 Active VTE Mechanical Prophylaxis 05/10 UNK Active Hemoccult 05/10 UNK Active PHYSICIAN CONSULT 05/10 UNK Active Current Medications Sig/Brandon Start time Last Medication Dose Stop Time Status Admin Multivitamins 1 TAB DAILY 05/11 1000 UNVr (Theragran Vitamins) Heparin Sodium 5,000 UNIT Q8 05/10 2200 UNVr (Porcine) Acetaminophen 650 MG Q6P PRN 05/10 1630 UNVr (Tylenol) Morphine Sulfate 2 MG Q8P PRN 05/10 1630 UNVr (Morphine) Oxycodone/ 1 TAB Q6P PRN 05/10 1630 UNVr Acetaminophen (Percocet) Laboratory Tests 05/10/17 1452: Anion Gap 12, Estimated GFR 30 L, BUN/Creatinine Ratio 18.1, Glucose 89, Calcium 10.0, Total Bilirubin 0.7, AST 24, ALT 15, Alkaline Phosphatase 99, Troponin I < 0.01, Total Protein 7.4, Albumin 3.8, Globulin 3.6, Albumin/ Globulin Ratio 1.1, PT 11.2, INR 1.03, APTT 27, CBC w Diff NO MAN DIFF REQ, RBC 3.93 L, MCV 92.3, MCH 30.8, MCHC 33.4, RDW 13.4, MPV 8.2, Gran % 71.6, Lymphocytes % 16.3 L, Monocytes % 8.0, Eosinophils % 3.8, Basophils % 0.3, Absolute Granulocytes 5.3, Absolute Lymphocytes 1.2, Absolute Monocytes 0.6, Absolute Eosinophils 0.3, Absolute Basophils 0 Patient was neurovascularly intact to right lower extremity no concerns of tendon deficit patient able to perform straight leg raise has full active range of motion and hip and knee no signs infectious process Myotomes dermatomes intact Patient was given Tylenol with Codeine and will be reevaluated after x-rays are resulted for ambulatory status After patient was given Tylenol for codeine she was reevaluated upon ambulatory status however nursing staff indicates the patient was unable tolerate weightbearing activities due to severe right thigh pain Discussed patient with Dr. CASTILLO who advised patient to be admitted and will require further evaluation and treatment and possible surgical intervention he advised patient to receive MRI of right leg. However patient is noted to have previous pacemaker placement and which CT scan was ordered Discussed admission with Dr. Tamayo will discuss admission with hospitalist Discussed admission with patient and patient's power of staff attorney the son who is aware Diagnostic Imaging: Viewed by Me: Radiology Read. Radiology Impression: acute abnormality Initial ED EKG: normal intervals, normal p-waves, normal QRS complex, 71 BPM Comments: PATIENT: BLAKE BUCKLEY PRESENT AGE: 87 PATIENT ACCOUNT NO: [id number] : 29 LOCATION: [facility] ORDERING PHYSICIAN: Oscar CHÁVEZ SERVICE DATE: 05/10/17 EXAM TYPE: RAD - XRY-FEMUR, 2 VIEWS RIGHT; XRY-KNEE, RIGHT EXAMINATION: XR FEMUR, RIGHT XR KNEE, RIGHT CLINICAL INFORMATION: Right knee and thigh pain. COMPARISON: None TECHNIQUE: Right femur, AP and lateral views Right knee, 4 views FINDINGS: RIGHT FEMUR: Bones appear diffusely osteoporotic. The visualized right pelvic bones are intact. The femoral head is well-positioned within the acetabulum. The articular cartilage space of the right hip is preserved. There are two horizontal insufficiency fracture lucencies within cortical bone of the lateral aspect of the mid femoral diaphysis. These fractures are surrounded by reactive cortical and endosteal thickening/sclerosis. Query whether these abnormalities are bisphosphate treatment related. There is clustered calcification centered within the medullary cavity of the distal diaphysis; this is compatible with enchondroma. No aggressive osseous lesion. Peripheral vessels are calcified. Multiple surgical clips are seen within soft tissues of the posteromedial thigh and knee. RIGHT KNEE: Alignment is normal. Trace amount of fluid in the suprapatellar bursa. No acute fracture subluxation. Small marginal osteophytes at patellofemoral and tibiofemoral compartments. Chondrocalcinosis of menisci. IMPRESSION: 1. Diffuse osteoporosis. 2. Incomplete insufficiency fractures involving lateral cortex of the mid right femoral diaphysis. 3. Minimal osteoarthrosis of patellofemoral and tibiofemoral compartments of the right knee. DICTATED BY: Kit Keane MD DATE/TIME DICTATED:05/10/17 1451 SOLAR MANAGER:JUAN DATE/TIME TRANSCRIBED:05/10/17 (Oscar Holloway) Departure Departure Disposition: STILL A PATIENT Condition: Stable Clinical Impression Primary Impression: Right femoral fracture Referrals: Whit Aly MD (PCP/Family) Departure Forms: Customer Survey General Discharge Information Admission Note Documentation of Exam: Documentation of any treatments & extenuating circumstances including Concerns Regarding Discharge (functional status, medication knowledge or non-compliance, living conditions, etc.) that warrant an admission rather than observation: (Oscar Holloway) Admission Note Spoke With: Eva Montiel MD Documentation of Exam: Documentation of any treatments & extenuating circumstances including Concerns Regarding Discharge (functional status, medication knowledge or non-compliance, living conditions, etc.) that warrant an admission rather than observation: [ PAINCONTROL, MRI,ORTHO CONSULT (DR. CASTILLO NOTIFIED)] PA/ELECTRONIC TRANSACTION IMPLEMENTER Co-Sign Statement Statement: ED Attending supervision documentation- [X] I saw and evaluated the patient. I have also reviewed all the pertinent lab results and diagnostic results. I agree with the findings and the plan of care as documented in the PA's/ELECTRONIC TRANSACTION IMPLEMENTER's documentation. [X] I have reviewed the ED Record and agree with the PA's/ELECTRONIC TRANSACTION IMPLEMENTER's documentation. [] Additions or exceptions (if any) to the PAs/ELECTRONIC TRANSACTION IMPLEMENTER's note and plan are summarized below: [SEEABOVE NOTE] (Roni ZIMMERMAN,Lavon Tinsley
[2017-05-10] MEDS ORDERED: VITAMIN D31000 UNI2 PO (12:53)
[2017-05-10] MEDS ORDERED: VITAMIN B-121000 MC3 PO (12:53)
[2017-05-10] MEDS ORDERED: AMLODIPINE BESY10 M1 PO (12:54)
[2017-05-10] MEDS ORDERED: METOPROLOL TART25 M1 PO (12:55)
--- NOTE | 2017-05-10 15:03 | RADIOLOGY REPORT ---
EXAMINATION: XR FEMUR, RIGHT XR KNEE, RIGHT CLINICAL INFORMATION: Right knee and thigh pain. COMPARISON: None TECHNIQUE: Right femur, AP and lateral views Right knee, 4 views FINDINGS: RIGHT FEMUR: Bones appear diffusely osteoporotic. The visualized right pelvic bones are intact. The femoral head is well-positioned within the acetabulum. The articular cartilage space of the right hip is preserved. There are two horizontal insufficiency fracture lucencies within cortical bone of the lateral aspect of the mid femoral diaphysis. These fractures are surrounded by reactive cortical and endosteal thickening/sclerosis. Query whether these abnormalities are bisphosphate treatment related. There is clustered calcification centered within the medullary cavity of the distal diaphysis; this is compatible with enchondroma. No aggressive osseous lesion. Peripheral vessels are calcified. Multiple surgical clips are seen within soft tissues of the posteromedial thigh and knee. RIGHT KNEE: Alignment is normal. Trace amount of fluid in the suprapatellar bursa. No acute fracture subluxation. Small marginal osteophytes at patellofemoral and tibiofemoral compartments. Chondrocalcinosis of menisci. IMPRESSION: 1. Diffuse osteoporosis. 2. Incomplete insufficiency fractures involving lateral cortex of the mid right femoral diaphysis. 3. Minimal osteoarthrosis of patellofemoral and tibiofemoral compartments of the right knee.
[2017-05-10 15:04] LABS: ABSOLUTE BASOPHIL COUNT 0 /CUMM (0.0-0.2); ABSOLUTE EOSINOPHIL COUNT 0.3 /CUMM (0.0-0.7); ABSOLUTE GRANULOCYTE CT 5.3 /CUMM (1.4-6.5); ABSOLUTE LYMPH COUNT 1.2 /CUMM (1.2-3.4); ABSOLUTE MONOCYTE COUNT 0.6 /CUMM (0.10-0.60); BASOPHIL % 0.3 % (0.0-2.0); EOSINOPHIL % 3.8 % (0-5); GRANULOCYTE % 71.6 % (42.2-75.2); HEMATOCRIT 36.3 % (37-47); MEAN CORPUSCULAR HGB 30.8 PG (27.0-31.0); MEAN CORPUSCULAR HGB CONC 33.4 G/DL (33.0-37.0); MEAN CORPUSCULAR VOLUME 92.3 FL (81.0-99.0); MEAN PLATELET VOLUME 8.2 FL (7.4-10.4); PLATELET COUNT 202 /CUMM (130-400); RBC DISTRIBUTION WIDTH 13.4 % (11.5-14.5); RED BLOOD CELL CT 3.93 /CUMM (4.20-5.40); WHITE BLOOD CELL COUNT 7.4 /CUMM (4.8-10.8)
--- NOTE | 2017-05-10 15:50 | History & Physical ---
See Addendum Yanely Bliss 05/10/17 1549: General Information and HPI History of Present Illness: Mrs. Rangel is an 86-year-old female with past medical history of hypertension, hyperlipidemia, coronary artery disease status post triple bypass, PM who presents to the ED with progressively worsened right knee pain. Son at bedside. Son reports he has noticed for the past 2-3 months the patient has been limping for unclear reasons. She describes the pain as sharp upon weight- bearing, 4/10 in severity without radiation, relieved with rest. On Sunday she could barely walk. She went to see her PCP who gave her an order to referral for 10 but was unable to make it due to worsening pain. Today she almost fell and began to cry which prompted her to call her son and come to the ED. she at baseline she walks without assistance but reports after her CABG she used a roller walker for 2 weeks. She denies fever, chills, nausea, vomiting, weight loss, SOB, urinary or bowel symptoms. Allergies/Medications Allergies: Coded Allergies: NO KNOWN ALLERGIES (02/20/12) Home Med list Amlodipine Besylate 10 MG TABLET 1 TAB PO DAILY HEART (Reported) Aspirin (Ecotrin*) 81 MG TABLET.DR 1 TAB PO DAILY HEART/BLOOD (Reported) Cholecalciferol (Vitamin D3) 1,000 UNIT TABLET 1 TAB PO DAILY VITAMIN SUPPORT (Reported) Cranberry 400 MG CAPSULE 2 TAB PO DAILY SUPPLEMENT (Reported) Cyanocobalamin (Vitamin B-12) 1,000 MCG TABLET 1 TAB PO DAILY VITAMIN SUPPORT (Reported) Escitalopram Oxalate (Lexapro) 5 MG TABLET 5 MG PO DAILY ANXIETY (Reported) Losartan Potassium 25 MG TABLET 1 TAB PO DAILY HTN (Reported) Metoprolol Tartrate 25 MG TABLET 1 TAB PO DAILY HEART (Reported) Simvastatin (Zocor*) 20 MG TABLET 1 TAB PO DAILY CHOLESTEROL (Reported) Past History Travel History Traveled to [place] past 21 day No Medical History Neurological: NONE EENT: NONE Cardiovascular: CAD, hypertension, hyperlipidemia, TRIPLE BYPASS Respiratory: NONE Gastrointestinal: NONE Hepatic: NONE Renal: RENAL INSUFFICIENCY Musculoskeletal: ARTHRITIS Psychiatric: NONE Endocrine: NONE Blood Disorders: NONE Cancer(s): NONE 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 self Services at Home: None Primary Language: Hungarian Functional Ability ADLs Independent: dressing, eating, toileting, bathing. Ambulation: independent IADLs Independent: shopping, housework, finances, food prep, telephone, transportation , medication admin. Review of Systems Review of Systems Constitutional: Reports: see HPI. Exam & Diagnostic Data Last 24 Hrs of Vital Signs/I&O Vital Signs Date Time Temp Pulse Resp B/P B/P Pulse O2 O2 Flow FiO2 Mean Ox Delivery Rate 05/10 1436 97.6 68 18 139/63 97 Room Air 05/10 1124 96.2 67 20 145/64 96 Room Air Intake & Output 05/10 1600 05/10 0800 05/10 0000 Intake Total Output Total Balance Patient 124 lb Weight Physical Exam General Appearance Alert, Oriented X3, Cooperative, No Acute Distress Cardiovascular Regular Rate, Normal S1, Normal S2 Lungs Clear to Auscultation, Normal Air Movement Abdomen Normal Bowel Sounds, Soft, No Tenderness Extremities Full ROM with active and passive movement. Pain on palpation above and below knee. No ecchymosis. Trace edema below knee Last 24 Hrs of Labs/Kyle: Laboratory Tests 05/10/17 1452: Anion Gap 12, Estimated GFR 30 L, BUN/Creatinine Ratio 18.1, Glucose 89, Calcium 10.0, Total Bilirubin 0.7, AST 24, ALT 15, Alkaline Phosphatase 99, Troponin I < 0.01, Total Protein 7.4, Albumin 3.8, Globulin 3.6, Albumin/ Globulin Ratio 1.1, PT Pending, INR Pending, APTT Pending, CBC w Diff NO MAN DIFF REQ, RBC 3.93 L, MCV 92.3, MCH 30.8, MCHC 33.4, RDW 13.4, MPV 8.2, Gran % 71.6, Lymphocytes % 16.3 L, Monocytes % 8.0, Eosinophils % 3.8, Basophils % 0.3 , Absolute Granulocytes 5.3, Absolute Lymphocytes 1.2, Absolute Monocytes 0.6, Absolute Eosinophils 0.3, Absolute Basophils 0 Diagnostic Data Other Results XRY-FEMUR, 2 VIEWS RIGHT; XRY-KNEE, RIGHT IMPRESSION: 1. Diffuse osteoporosis. 2. Incomplete insufficiency fractures involving lateral cortex of the mid right femoral diaphysis. 3. Minimal osteoarthrosis of patellofemoral and tibiofemoral compartments of the right knee. Assessment/Plan Assessment: Mrs. Rangel is an 86-year-old female with past medical history of hypertension, hyperlipidemia, coronary artery disease status post triple bypass, PM who presents to the ED with progressively worsened right knee pain. Problem list: Right femoral fracture Plan: Admit to general med for further evaluation and management Ortho consult Cardio consult CT RE Nothing by mouth at midnight for possible surgical intervention in the morning Diet: Heart healthy DVT prophylaxis: sc Heparin Code: DNR/I As Ranked By This Provider Problem List: 1. Right femoral fracture Core Measures/Misc (10/22) Acute Coronary Syndrome ACS Diagnosis: No Congestive Heart Failure Congestive Heart Failure Diagnosis No Cerebrovascular Accident CVA/TIA Diagnosis: No VTE (View Protocol) VTE Risk Factors Age>40 No Mechanical VTE Prophylaxis d/t N/A MechProphylax Ordered No VTE Pharm Prophylaxis d/t NA PharmProphylax ordered Sepsis (View protocol) Sepsis Present: No Eva Montiel MD 05/10/17 1712: Attending MD Review Statement Attending Statement Attending MD Statement: examined this patient, discuss w/resident/PA/ALUMINA REFINERY OPERATOR, agreed w/resident/PA/ALUMINA REFINERY OPERATOR, discussed with family, reviewed EMR data (avail), discussed with nursing, amended to note Attending Assessment/Plan: Patient is a very pleasant 87-year-old female with history of coronary disease triple bypass surgery, permanent pacemaker placement, chronic kidney disease stage III was brought to the emergency room for admission breasts on account of right lower extremity discomfort that has been going on for several months. Son eventually decided to bring the patient to the emergency room for evaluation due to worsening of her symptoms patient reports discomfort only when she is weightbearing on that extremity. She denies any history of trauma. She does have history of osteoporosis. Imaging in the ER reveals; Diffuse osteoporosis, Incomplete insufficiency fractures involving lateral cortex of the mid right femoral diaphysis, Minimal osteoarthrosis of patellofemoral and tibiofemoral compartments of the right knee. On examination she is resting comfortably multivitamin acute distress. Heart sounds are regular. Lungs are clear to auscultation bilaterally. Abdomen is soft and nontender. She has no peripheral edema. She has no bruising or swelling. She has no swelling of the knee joints. There is no palpable tenderness. She has normal range of motion although she complains of pain with movement of the right knee. Workup revealed no leukocytosis. H&H is stable. Creatinine is mildly elevated but at baseline. Problems: 1. Multiple traumatic fracture of the right femur. 2. Coronary artery disease. 3. 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 4. Chronic kidney disease stage III. Recommendations: -Admit to the inpatient general medical service. -Recommend pain control with Tylenol orally. -Follow-up CT scan for further evaluation of the femoral fracture. Patient cannot undergo an MRI due to her implanted pacemaker. -Follow-up with the surgical service post CT scan. Options at this time include conservative management versus surgical intervention depending on the degree of bony involvement. -If she should require surgical intervention, patient has a revised cardiac risk index score 1 placing her risk of adverse anesthetic addressed preoperatively at 0.9%. She denies any active cardiac symptoms. Recommend evaluation by her hot plate plywood press operator perioperatively. No indication for further cardiac testing at this time. -Patient has had any age-appropriate cancer screening due to her own choice. This CT scan is suggestive of malignancy she will require follow-up for primary location. -Keep nothing by mouth past midnight for possible surgery in a.m. Begin patient on D5 half NS @ 60 mL an hour at 6 AM tomorrow. Dianne Schuler 05/11/17 0755: Resident Review Statement Resident Statement: examined this patient, discussed with customer marketing intern, agreed with customer marketing intern, discussed with family, reviewed EMR data (avail), discussed with nursing , discussed with case mgmt, reviewed images, amended to note
[2017-05-10 16:06] LABS: PT 11.2 SEC (9.4-12.5); PTT 27 SEC (25-37)
--- NOTE | 2017-05-10 17:13 | Admission Certification ---
Admission Certification Certification Statement - As attending physician, I certify that at the time of - admission, based on clinical presentation, severity of - symptoms, need for further diagnostic testing and - therapeutic interventions, and risk of adverse outcomes - without in-hospital treatment, in my clinical assessment, - this patient requires an acute hospital stay for a minimum - of two nights or longer. I have also considered psychsocial - factors such as support system, advanced age, financial - issues, cognitive issues, and failed out-patient treatments, - past re-admission history, safety of patient, and lack of - compliance as applicable. Specific rationale supporting this admission is: Patient will require hospitalization for evaluation and management of her right femur fracture.
--- NOTE | 2017-05-10 17:28 | Cons- Cardiology ---
General Information and HPI Consulting Request Date of Consult: 05/10/17 Requested By: Eva Montiel MD History of Present Illness: Yenny is an 87 year old female who carries a history of hypertension and coronary artery disease, status post bypass surgery. She also carries history of renal insufficiency which is being followed by Dr. Rojo. I initially saw this patient in April of 2009 for exertional shortness of breath, tachycardia and a blood pressure consistent with severe hypertension. At that time it was 170/96 mmHG. She has subsequently undergone bypass surgery. This patient was recently admitted for symptoms related to complete heart block and she received emergent placement of a [employer] MRI safe dual chamber pacemaker. At baseline Yenny is active for her age and walks around her house. Over the past month this patient has noted a right lower extremity pain that limited her ability to walk. She was stoic for quite a while and did not seek out help until today when she was brought to the ER by her son and discovered to have a right femoral fracture. Surgery is now anticipated. She has a pacemaker and is pacemaker dependent. This patietn denies chest pain, pressure, tightness, shortness of breath, lightheadedness or palpitations. She does have back pain. Deb's most recent echo showed a low normal EF of 50% which is a dramatic improvement. The right atrium and ventricle are mildly enlarged and the left atrium is moderately dilated. In terms of cardiac valve she has mild mitral and moderate tricuspid and pulmonic regurgitation. She also has moderate pulmonary hypertension with pressures of 50-55mmHG. In the past this patient did report palpitaitons. When present they typically come on gradually and last about ten minutes at a time. They occur when the patient is worked up, such as when she is watching a [employer] game, but she will also notice the palpitations at complete rest. When she does have the palpitations there is no associated shortness of breath or lightheadedness. It should be noted that the patient has a right peritracheal density that was evaluated by means of a prior CT scan. This study was not consistent with any concerning mass, but she does have a plan for repeat CT scan in the near future. To Review the Patient's Past History: In May of 2009 this patient complained of shortness of breath and epigastric non-radiating discomfort that she did not feel was related to physical exertion. I opted to risk stratify her with a stress test which showed an ejection fraction of 35% with evidence of anterior wall myocardial ischemia. Workup also included an echocardiogram which showed an ejection fraction of 20-25% with a dilated left atrium. In terms of cardiac valves, there was trace to mild regurgitation, trace pulmonic insufficiency, and mild tricuspid regurgitation. In consideration of these findings, I pursued cardiac catheterization. This study showed a cloacal left main. The LAD was 100% occluded at the take-off of a large first diagonal branch. The LAD filled retrograde via left to left collaterals. The first diagonal branch harbored a 90% ostial stenosis followed by a 60% proximal stenosis. The left circumflex was a large dominant system with an 80% ostial stenosis and a 50% stenosis after the take-off of the obtuse marginal two branch. The right coronary artery was small and nondominant. Left ventriculography showed EF of 30% with severe anteroapical wall hypokinesis. In response to the abnormal cardiac catheterization, the patient underwent bypass surgery with a MARTI graft to the LAD, saphenous vein graft to the diagonal, and a separate saphenous vein graft to the posterolateral branch of the left circumflex. Allergies/Medications Allergies: Coded Allergies: NO KNOWN ALLERGIES (02/20/12) Home Med List: Amlodipine Besylate 10 MG TABLET 1 TAB PO DAILY HEART (Reported) Aspirin (Ecotrin*) 81 MG TABLET.DR 1 TAB PO DAILY HEART/BLOOD (Reported) Cholecalciferol (Vitamin D3) 1,000 UNIT TABLET 1 TAB PO DAILY VITAMIN SUPPORT (Reported) Cranberry 400 MG CAPSULE 2 TAB PO DAILY SUPPLEMENT (Reported) Cyanocobalamin (Vitamin B-12) 1,000 MCG TABLET 1 TAB PO DAILY VITAMIN SUPPORT (Reported) Escitalopram Oxalate (Lexapro) 5 MG TABLET 5 MG PO DAILY ANXIETY (Reported) Losartan Potassium 25 MG TABLET 1 TAB PO DAILY HTN (Reported) Metoprolol Tartrate 25 MG TABLET 1 TAB PO DAILY HEART (Reported) Simvastatin (Zocor*) 20 MG TABLET 1 TAB PO DAILY CHOLESTEROL (Reported) Review of Systems Review of Systems: A review of symptoms is unremarkable other than the above. 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 self Services at Home: None Primary Language: Comoran Functional Ability ADLs Independent: dressing, eating, toileting, bathing. Ambulation: independent IADLs Independent: shopping, housework, finances, food prep, telephone, transportation , medication admin. Exam & Diagnostic Data Vital Signs and I&O Vital Signs Date Time Temp Pulse Resp B/P B/P Pulse O2 O2 Flow FiO2 Mean Ox Delivery Rate 05/10 2052 70 142/80 05/10 1737 98.7 70 18 134/62 98 Room Air 05/10 1436 97.6 68 18 139/63 97 Room Air 05/10 1124 96.2 67 20 145/64 96 Room Air Intake & Output 05/10 1600 05/10 0800 05/10 0000 05/09 1600 05/09 0800 05/09 0000 Intake Total Output Total Balance Patient 124 lb Weight Physical Exam: General: WD/WN female in NAD; alert and oriented x 3 HEENT: NC/AT, PERRL, EOMI Neck: no JVD, no carotid bruit Heart: RRR without murmur Lungs: clear bilaterally Abdomen: soft, NT, +ve bowel sounds Extremities: no edema Assessment/Plan Assessment/Plan * Yenny is active at her baseline and can engage in activity such as cleaning her house and making her bed. She has no symptoms of myocardial ischemia or decompensated heart failure. Her most recent echocardiogram shows a low normal EF. This patient is at reasonable risk for surgery which she is cleared for from a cardiac standpoint. Consult Acknowledgment - Thank you for your consult request.
[2017-05-10 17:37] VITALS: BP 134/62
--- NOTE | 2017-05-10 18:02 | Cons- Orthopedic ---
General Information and HPI Consulting Request Date of Consult: 05/10/17 Requested By: Eva Montiel MD Reason for Consult: femur fracture Source of Information: patient, family, old records Exam Limitations: no limitations, dementia History of Present Illness: This is an 87-year-old female with several months of right lateral thigh pain that started without trauma. Is progressively getting worse to the point where she cannot walk now due to the pain, she cannot weight-bear. There is been no history of injury to the area. She has no back pain. There is no swelling or skin surface changes. Upon evaluation in the ER she was found to have 2 questionable lesions versus stress fractures on plain films, due to her inability to ambulate and the x-ray findings, she was admitted to the medical service and orthopedics was consulted for further evaluation. Allergies/Medications Allergies: Coded Allergies: NO KNOWN ALLERGIES (02/20/12) Home Med List: Amlodipine Besylate 10 MG TABLET 1 TAB PO DAILY HEART (Reported) Aspirin (Ecotrin*) 81 MG TABLET.DR 1 TAB PO DAILY HEART/BLOOD (Reported) Cholecalciferol (Vitamin D3) 1,000 UNIT TABLET 1 TAB PO DAILY VITAMIN SUPPORT (Reported) Cranberry 400 MG CAPSULE 2 TAB PO DAILY SUPPLEMENT (Reported) Cyanocobalamin (Vitamin B-12) 1,000 MCG TABLET 1 TAB PO DAILY VITAMIN SUPPORT (Reported) Escitalopram Oxalate (Lexapro) 5 MG TABLET 5 MG PO DAILY ANXIETY (Reported) Losartan Potassium 25 MG TABLET 1 TAB PO DAILY HTN (Reported) Metoprolol Tartrate 25 MG TABLET 1 TAB PO DAILY HEART (Reported) Simvastatin (Zocor*) 20 MG TABLET 1 TAB PO DAILY CHOLESTEROL (Reported) Past History Medical History Neurological: NONE EENT: NONE Cardiovascular: CAD, hypertension, hyperlipidemia, TRIPLE BYPASS Respiratory: NONE Gastrointestinal: NONE Hepatic: NONE Renal: RENAL INSUFFICIENCY Musculoskeletal: ARTHRITIS Psychiatric: NONE Endocrine: NONE Blood Disorders: NONE Cancer(s): NONE 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 self Services at Home: None Primary Language: Kuwaiti Functional Ability ADLs Independent: dressing, eating, toileting, bathing. Ambulation: independent IADLs Independent: shopping, housework, finances, food prep, telephone, transportation , medication admin. Review of Systems Review of Systems: Review of systems: See HPI, all other systems negative. Constitutional: No chills fever or weight loss HEENT: No visual changes no sore throat no congestion Cardiovascular: No chest pain ,palpitation , orthopnea or ankle swelling Skin: No jaundice no rashes Respiratory: No dyspnea cough sputum or hemoptysis GI: No nausea no vomiting : No dysuria no hematuria Musclulo skeletal: No back pain no neck pain, see HPI Neurologic: No numbness no confusion Psych: No stress anxiety or depression,. Heme/endocrine: No bruising no bleeding no polyuria or polydipsia Immunology: No splenectomy or history of AIDS Exam & Diagnostic Data Vital Signs and I&O Vital Signs Date Time Temp Pulse Resp B/P B/P Pulse O2 O2 Flow FiO2 Mean Ox Delivery Rate 05/10 1737 98.7 70 18 134/62 98 Room Air 05/10 1436 97.6 68 18 139/63 97 Room Air 05/10 1124 96.2 67 20 145/64 96 Room Air Intake & Output 05/10 1600 05/10 0800 05/10 0000 05/09 1600 05/09 0800 05/09 0000 Intake Total Output Total Balance Patient 124 lb Weight Physical Exam: Well-developed well-nourished no apparent distress. HEENT: Atraumatic, extraocular motion intact Neck: Supple, no lymphadenopathy Respiratory: No respiratory distress Extremities: No edema, no calf pain No significant tenderness to the right lower extremity, there are no skin surface changes, no swelling, no edema of the leg, range of motion of the right hip and right knee is full. Bilateral lower extremities are neurovascularly intact with sensation motor grossly intact Neuro: Alert and oriented x3 Psych: Mood affect normal, normal memory normal judgment. Skin: Warm and dry, no rash on exposed skin Last 24 Hours of Labs: Laboratory Tests 05/10 1452 Chemistry Sodium (137 - 145 mmol/L) 140 Potassium (3.5 - 5.1 mmol/L) 4.1 Chloride (98 - 107 mmol/L) 104 Carbon Dioxide (22 - 30 mmol/L) 25 Anion Gap (5 - 16) 12 BUN (7 - 17 mg/dL) 29 H Creatinine (0.5 - 1.0 mg/dL) 1.6 H Estimated GFR (>60 ml/min) 30 L BUN/Creatinine Ratio (7 - 25 %) 18.1 Glucose (65 - 99 mg/dL) 89 Calcium (8.4 - 10.2 mg/dL) 10.0 Total Bilirubin (0.2 - 1.3 mg/dL) 0.7 AST (14 - 36 U/L) 24 ALT (9 - 52 U/L) 15 Alkaline Phosphatase (<127 U/L) 99 Troponin I (< 0.11 ng/ml) < 0.01 Total Protein (6.3 - 8.2 g/dL) 7.4 Albumin (3.5 - 5.0 g/dL) 3.8 Globulin (1.9 - 4.2 gm/dL) 3.6 Albumin/Globulin Ratio (1.1 - 2.2 %) 1.1 Coagulation PT (9.4 - 12.5 SEC) 11.2 INR (0.90 - 1.19) 1.03 APTT (25 - 37 SEC) 27 Hematology CBC w Diff NO MAN DIFF REQ WBC (4.8 - 10.8 /CUMM) 7.4 RBC (4.20 - 5.40 /CUMM) 3.93 L Hgb (12.0 - 16.0 G/DL) 12.1 Hct (37 - 47 %) 36.3 L MCV (81.0 - 99.0 FL) 92.3 MCH (27.0 - 31.0 PG) 30.8 MCHC (33.0 - 37.0 G/DL) 33.4 RDW (11.5 - 14.5 %) 13.4 Plt Count (130 - 400 /CUMM) 202 MPV (7.4 - 10.4 FL) 8.2 Gran % (42.2 - 75.2 %) 71.6 Lymphocytes % (20.5 - 51.1 %) 16.3 L Monocytes % (1.7 - 9.3 %) 8.0 Eosinophils % (0 - 5 %) 3.8 Basophils % (0.0 - 2.0 %) 0.3 Absolute Granulocytes (1.4 - 6.5 /CUMM) 5.3 Absolute Lymphocytes (1.2 - 3.4 /CUMM) 1.2 Absolute Monocytes (0.10 - 0.60 /CUMM) 0.6 Absolute Eosinophils (0.0 - 0.7 /CUMM) 0.3 Absolute Basophils (0.0 - 0.2 /CUMM) 0 Imaging Results: PATIENT: BLAKE BUCKLEY PRESENT AGE: 87 PATIENT ACCOUNT NO: [id number] : 29 LOCATION: [facility] ORDERING PHYSICIAN: Oscar CHÁVEZ SERVICE DATE: 05/10/17 EXAM TYPE: RAD - XRY-FEMUR, 2 VIEWS RIGHT; XRY-KNEE, RIGHT EXAMINATION: XR FEMUR, RIGHT XR KNEE, RIGHT CLINICAL INFORMATION: Right knee and thigh pain. COMPARISON: None TECHNIQUE: Right femur, AP and lateral views Right knee, 4 views FINDINGS: RIGHT FEMUR: Bones appear diffusely osteoporotic. The visualized right pelvic bones are intact. The femoral head is well-positioned within the acetabulum. The articular cartilage space of the right hip is preserved. There are two horizontal insufficiency fracture lucencies within cortical bone of the lateral aspect of the mid femoral diaphysis. These fractures are surrounded by reactive cortical and endosteal thickening/sclerosis. Query whether these abnormalities are bisphosphate treatment related. There is clustered calcification centered within the medullary cavity of the distal diaphysis; this is compatible with enchondroma. No aggressive osseous lesion. Peripheral vessels are calcified. Multiple surgical clips are seen within soft tissues of the posteromedial thigh and knee. RIGHT KNEE: Alignment is normal. Trace amount of fluid in the suprapatellar bursa. No acute fracture subluxation. Small marginal osteophytes at patellofemoral and tibiofemoral compartments. Chondrocalcinosis of menisci. IMPRESSION: 1. Diffuse osteoporosis. 2. Incomplete insufficiency fractures involving lateral cortex of the mid right femoral diaphysis. 3. Minimal osteoarthrosis of patellofemoral and tibiofemoral compartments of the right knee. DICTATED BY: Kit Keane MD DATE/TIME DICTATED:05/10/171450 PAN HELPER:JUAN DATE/TIME TRANSCRIBED:05/10/171450 Assessment/Plan Assessment/Plan 87-year-old female with insufficiency fractures, 2 of them, to the right mid femur region. She is admitted to the medical service for further evaluation and workup of these. She requires nonweightbearing status. MRI could not be obtained due to her pacemaker so CT scan is currently pending to evaluate the lesion further, questionable stress fractures versus metastatic disease or primary cancer. There is concern for pathologic fracture as well, she may require prophylactic riding and/or biopsy. This will be decided upon evaluation by orthopedic surgeon Dr. Juarez based on results of the CT scan findings and discussion with the family. She should be nonweightbearing for now, would like to obtain medical and cardiology clearance for possible surgery tomorrow if indicated. Please make her nothing by mouth after midnight. Problem List: 1. Right femoral fracture Consult Acknowledgment - Thank you for your consult request.
--- NOTE | 2017-05-10 20:48 | CT SCAN REPORT ---
EXAMINATION: CT LOWER EXTREMITY WITHOUT CONTRAST, RIGHT CLINICAL INFORMATION: Right leg diaphysis fracture and x-ray. COMPARISON: X-ray from today TECHNIQUE: Axial imaging. Sagittal coronal reconstructions. FINDINGS: Normal alignment of the right hip joint. There is mild right hip joint arthritis, with mild spurring, lateral acetabular cyst. Visualized pelvic bones are intact. There is mild right SI joint degeneration. The acetabulum appears intact. Moderate symphysis pubis degeneration. Degenerative changes in the visualized lower lumbar spine facet joints. Bones are diffuse bone demineralization.. As seen on the recent x-ray, are 2 linear horizontal lucencies in the lateral cortex of the mid femoral diaphysis. There is a stranding cortical and endosteal thickening and sclerosis. These findings suggestive of insufficiency fractures. This could be related to a bisphosphonate treatment. There is a cluster of coarse calcifications within the medullary cavity of the distal femoral diaphysis, appears nonaggressive, most likely related to an enchondroma. Mild to moderate tricompartment arthritis in the knee. No significant knee joint effusion. The soft tissues, there is vascular calcification noted. IMPRESSION: 1. Incomplete osseous fractures of the lateral cortex of the mid femoral diaphysis, compatible with insufficiency fractures. This can be seen with a bisphosphonate treatment. 2. Mild right hip joint arthritis. Mild right SI joint arthritis. 3. Mild to moderate tricompartment arthritis right knee.
[2017-05-10 21:50] VITALS: BP 116/66
[2017-05-11 07:00] VITALS: BP 108/65
--- NOTE | 2017-05-11 07:39 | PN- Housestaff ---
Yanely Bliss 05/11/17 0739: Subjective Follow-up For: Right femoral fracture Subjective: Patient non weight bearing laying comfortably in bed. She denies SOB, CP, numbness, weakness Review of Systems Constitutional: Reports: see HPI. Objective Last 24 Hrs of Vital Signs/I&O Vital Signs Date Time Temp Pulse Resp B/P B/P Pulse O2 O2 Flow FiO2 Mean Ox Delivery Rate 05/11 0700 98.3 64 18 108/65 97 04/ 2150 97.9 60 18 116/66 96 Room Air 05/10 2052 70 142/80 04/ 1737 98.7 70 18 134/62 98 Room Air / 1436 97.6 68 18 139/63 97 Room Air 05/10 1124 96.2 67 20 145/64 96 Room Air Intake & Output 05/11 1600 05/11 0800 04 0000 Intake Total 260 Output Total 200 350 Balance -200 -90 Intake, IV 10 Intake, Oral 250 Output, Urine 200 350 Patient 149 lb 118 lb Weight Weight Reported by Patient Measurement Method Physical Exam General Appearance: Alert, Oriented X3, Cooperative, No Acute Distress Skin: Surgical scar and PM intact on L upper chest Cardiovascular: Regular Rate, Normal S1, Normal S2 Lungs: Clear to Auscultation, Normal Air Movement Extremities: R knee without warmth, swelling or ecchymosis Current Medications: Current Medications Sig/Brandon Start time Last Medication Dose Route Stop Time Status Admin Acetaminophen 1,000 MG Q6P PRN 05/10 1715 DC N/A 1 UNIT IV Acetaminophen 650 MG Q6P PRN 05/10 1630 AC PO Acetaminophen/ 0 .STK-MED ONE 05/10 1337 DC Codeine Phosphate PO Acetaminophen/ 1 TAB ONCE ONE 05/10 1330 DC 05/10 Codeine Phosphate PO 05/10 1331 1334 Amlodipine Besylate 10 MG DAILY 05/10 1929 AC 05/10 PO 2052 Aspirin Buffered 81 MG DAILY 05/10 1929 AC 05/10 PO 2050 Atorvastatin Calcium 10 MG 1700 05/10 1929 AC 05/10 PO 2050 Cholecalciferol 1,000 IU DAILY 05/11 1000 AC PO Cyanocobalamin 250 MCG DAILY 05/11 1000 AC PO Dextrose/Sodium 1,000 ML Q20H 05/11 0745 AC Chloride IV Escitalopram Oxalate 5 MG DAILY 05/10 1929 AC 05/10 PO 2052 Heparin Sodium 5,000 UNIT Q8 05/10 2199 AC 05/11 (Porcine) SC 0529 Losartan Potassium 25 MG DAILY 05/11 999 AC PO Metoprolol Tartrate 25 MG DAILY 05/10 1929 AC 05/10 PO 2051 Morphine Sulfate 2 MG Q8P PRN 05/10 1630 DC IV Multivitamins 1 TAB DAILY 05/11 1000 AC PO Oxycodone/ 1 TAB Q6P PRN 05/10 163 DC Acetaminophen PO Last 24 Hrs of Lab/Kyle Results Last 24 Hrs of Labs/Mics: Laboratory Tests 05/11/17 0656: Anion Gap 10, Estimated GFR 30 L, BUN/Creatinine Ratio 16.3, CBC w Diff NO MAN DIFF REQ, RBC 3.69 L, MCV 92.5, MCH 31.0, MCHC 33.5, RDW 13.4, MPV 8.7, Gran % 57.4, Lymphocytes % 21.4, Monocytes % 11.9 H, Eosinophils % 8.2 H, Basophils % 1.1, Absolute Granulocytes 3.1, Absolute Lymphocytes 1.1 L, Absolute Monocytes 0.6, Absolute Eosinophils 0.4, Absolute Basophils 0.1 05/10/17 1452: Anion Gap 12, Estimated GFR 30 L, BUN/Creatinine Ratio 18.1, Glucose 89, Calcium 10.0, Total Bilirubin 0.7, AST 24, ALT 15, Alkaline Phosphatase 99, Troponin I < 0.01, Total Protein 7.4, Albumin 3.8, Globulin 3.6, Albumin/ Globulin Ratio 1.1, PT 11.2, INR 1.03, APTT 27, CBC w Diff NO MAN DIFF REQ, RBC 3.93 L, MCV 92.3, MCH 30.8, MCHC 33.4, RDW 13.4, MPV 8.2, Gran % 71.6, Lymphocytes % 16.3 L, Monocytes % 8.0, Eosinophils % 3.8, Basophils % 0.3, Absolute Granulocytes 5.3, Absolute Lymphocytes 1.2, Absolute Monocytes 0.6, Absolute Eosinophils 0.3, Absolute Basophils 0 Assessment/Plan Assessment: Mrs. Rangel is an 86-year-old female with past medical history of hypertension, hyperlipidemia, coronary artery disease status post triple bypass, PM who presents to the ED with progressively worsened right knee pain. Problem list: Right femoral fracture Plan: Patient on schedule today for surgical intervention, cleared from a cardiac standpoint Ortho recommendations appreciated Cardio recommendations appreciated CT RE consistent with XR findings of femoral diaphysis fracture that can be seen with a bisphosphonate treatment > 3-5 yrs of use but patient currently not on biphosphonates. Diet: Heart healthy DVT prophylaxis: sc Heparin Code: DNR/I Problem List: 1. Right femoral fracture Pain Ratin Pain Location: NA Pain Goal: Remain pain free Pain Plan: Tylenol Tomorrow's Labs & Rationales: CBC, BEP Eva Montiel MD 05/11/17 1407: Attending MD Review Statement Attending Statement Attending MD Statement: examined this patient, discuss w/resident/PA/PRODUCTION SUPERVISOR TRAINEE, agreed w/resident/PA/PRODUCTION SUPERVISOR TRAINEE, reviewed EMR data (avail), discussed with nursing, discussed with case mgmt, amended to note Attending Assessment/Plan: Patient seen and examined. Resting comfortably not in any acute distress. No issues overnight. Cardiology consultation appreciated. No new complaints this morning. Pain is controlled on her current regimen. She is scheduled to go to the OR today for repair of femur fracture. Fracture was likely brought on by her history of osteoporosis. Postoperatively she will be evaluated by the physical therapy service for safe discharge planning. Problems: 1. Right femur fracture. 2. Coronary artery disease with improvement of her prior systolic heart failure following revascularization with bypass surgery. 3. Hypertension. 4. Chronic kidney disease stage III. Plan: -Scheduled for surgical repair today. -Continue her prior cardiac regimen. -Physical therapy evaluation postoperatively. -She will require [facility] planning [facility] postoperatively. -Monitor hemoglobin level closely postoperatively. Transfuse for hemoglobin level less than 8.
[2017-05-11 08:05] LABS: ABSOLUTE BASOPHIL COUNT 0.1 /CUMM (0.0-0.2); ABSOLUTE EOSINOPHIL COUNT 0.4 /CUMM (0.0-0.7); ABSOLUTE GRANULOCYTE CT 3.1 /CUMM (1.4-6.5); ABSOLUTE LYMPH COUNT 1.1 /CUMM (1.2-3.4); ABSOLUTE MONOCYTE COUNT 0.6 /CUMM (0.10-0.60); BASOPHIL % 1.1 % (0.0-2.0); EOSINOPHIL % 8.2 % (0-5); GRANULOCYTE % 57.4 % (42.2-75.2); HEMATOCRIT 34.1 % (37-47); MEAN CORPUSCULAR HGB CONC 33.5 G/DL (33.0-37.0); MEAN CORPUSCULAR VOLUME 92.5 FL (81.0-99.0); MEAN PLATELET VOLUME 8.7 FL (7.4-10.4); PLATELET COUNT 177 /CUMM (130-400); RBC DISTRIBUTION WIDTH 13.4 % (11.5-14.5); RED BLOOD CELL CT 3.69 /CUMM (4.20-5.40); WHITE BLOOD CELL COUNT 5.3 /CUMM (4.8-10.8)
[2017-05-11 14:13] VITALS: BP 110/56
--- NOTE | 2017-05-11 15:36 | Patient Discharge Instructions ---
Discharge Instructions General Discharge Information You were seen/treated for: R femoral diaphysis fracture s/p intramedullary rodding Special Instructions: Follow up with Ortho within 1 week of discharge Avoid opiates if possible Diet Continue normal diet: Yes Activity Other activity limits: As tolerated Acute Coronary Syndrome Inclusion Criteria At DC or during hospital stay patient has or had the following: ACS DIAGNOSIS No Discharge Core Measures Meds if any: Prescribed or Continued at Discharge Meds if any: NOT Prescribed or Continued at Discharge Congestive Heart Failure Inclusion Criteria At DC or during hospital stay patient has or had the following: CHF DIAGNOSIS No Discharge Core Measures Meds if any: Prescribed or Continued at Discharge Meds if any: NOT Prescribed or Continued at Discharge Cerebrovascular accident Inclusion Criteria At DC or during hospital stay patient has or had the following: CVA/TIA Diagnosis No Discharge Core Measures Meds if any: Prescribed or Continued at Discharge Meds if any: NOT Prescribed or Continued at Discharge Venous thromboembolism Inclusion Criteria VTE Diagnosis No VTE Type NONE VTE Confirmed by (Test) NONE Discharge Core Measures - Per Current guidelines, there needs to be overlap - treatment for the first 5 days of Warfarin therapy. - If discharged on Warfarin prior to 5 days of - overlap therapy, the patient will need to be - assessed for post discharge needs including - *Post discharge parental anticoagulation - *Warfarin and/or parental anticoagulation education - *Follow up date to check INR post discharge At least 5 days overlap therapy as Inpatient No Meds if any: Prescribed or Continued at Discharge Note: Overlap Therapy is Warfarin and Anticoagulant Meds if any: NOT Prescribed or Continued at Discharge
[2017-05-11] MEDS ORDERED: TYLENOL325 M1 PO (15:38)
[2017-05-11] MEDS ORDERED: ONE DAILY MULT1 EAC2 PO (15:38)
--- NOTE | 2017-05-11 20:39 | Operative Report ---
Operative/Inv Procedure Report Surgery Date: 05/11/17 Name of Procedure: Intramedullary rodding multiple impending and healing right femoral shaft insufficiency fractures. Pre-Operative Diagnosis: Multiple healing and impending right femoral shaft insufficiency fractures. Post-Operative Diagnosis: Same. Estimated Blood Loss: 250 mL. Surgeon/Sash Sticker: Tex Tang/Tex Juarez (Dr Juarez was required as an extra set of skilled hands throughout the entirety of the case given the increased complexity of this case related to the deformity of the femoral shaft and high potential for iatrogenic perforation and fracture of the femur). Anesthesia: laryngeal mask airway Monitors: EKG/blood pressure/oxygen saturation IV Fluids: 500 mL crystalloid. Implants: Bloomingrose components: 1) 11 mm x 280 mm x 130 Gamma nail. 2) 95 mm lag screw 1. Urine Output: None. Drains: None. Specimens: None. Microbiology: None. Tourniquet: None. Complications: None known. Condition: Stable. Operative Indication: The patient is an 87-year-old female with severe osteoporosis who has been experiencing progressive right thigh pain and difficulty with ambulating and slowly progressive deformity of the thigh. She had an acute exacerbation of her right thigh symptoms very recently. She was admitted to the [facility] emergency room yesterday as x-rays of the right femur showed multiple impending and healing transverse tension sided femoral shaft insufficiency fractures. The patient was initially seen by Dr. Juarez and ultimately I worked together with Dr. Juarez on this case. We did discuss with the patientrisks and benefits and expected outcomes of simple nonoperative management of her multiple femoral insufficiency fractures with protected weightbearing in a wheelchair and essentially keeping her off of her feet until her fracture is healed. We did discuss a distinct possibility that she would continue to develop these type of insufficiency fractures of the femoral shaft in the future even once she healed her current insufficiency fractures. We did therefore discussed prophylactic internal splinting of the femoral shaft with an intramedullary with the purposes of providing some load sharing device to hopefully take some of the stress off of the femoral shaft as well as to have a scottie prophylactically in place to prevent displacement in the event that she does develop additional insufficiency fractures. All of the patient's questions were answered at length. She did wish to move forward with surgery and surgical consent was obtained. Operative/Procedure Note Note: The patient was brought to the operating room on her hospital bed. She was able to assist with positioning herself on the OR fracture table. Once satisfactorily on the OR fracture table general anesthesia via LMA was induced by the anesthesiologist. A dose of IV antibiotics were given for infection prophylaxis. The patient's ipsilateral right foot and ankle were wrapped in foam padding and then overwrapped with Coban to increased friction between the foam padding and the anterior of the traction boot. The right foot and ankle were then secured into the traction boot. The contralateral left lower extremity was supported in a position of flexion, abduction, and external rotation through the hip by supporting the leg on a well padded leg nelson sure to protect the peroneal nerve. The center board of the fracture table was removed. We did confirm that we could bring the C-arm in between the legs and adequately image the entire right femur from hip to knee in both AP and lateral projections. We continued to pad and position the patient until we were satisfied. Of note prior to supporting the patient's contralateral well leg in the well leg nelson we did place a compression sleeve on the left lower extremity to hopefully cutdown on risk of lower extremity blood pooling and blood clot formation and potential propagation. Once we were satisfied with the patient's positioning and the ability to image the right entire femur the right lower extremity was then prepped and draped in the usual sterile fashion. The skin at the patient's lateral hip and thigh was marked with a skin marker to angie the bony landmarks as well as to marked a planned longitudinal skin incision for trochanteric entry of the intramedullary nail. With this in mind the skin was marked for a longitudinal skin incision measuring about 4 cm in length beginning distally about 2-3 cm proximal to the marked tip of the greater trochanter and extending in a proximal direction for about 4 cm. After the skin was marked the scalpel was used to create the surgical wound. Sharp dissection was continued down through the skin and subcutaneous tissues as well as the deep fascia over the musculature. Of note the patient's adipose tissue layer was rather thick and this did require electrocoagulation for multiple bleeders. Retractors were placed deeper into the wound. As noted above the deep fascia was divided longitudinally in line with the skin incision. I next bluntly dissected the gluteal musculature fibers with fingertip dissection allowing me to palpate the tip of the greater trochanter. Once the tip of the greater trochanter was identified the threaded guidepin for the entry reamer was placed down onto the tip of the greater trochanter and positioned under fluoroscopic control until he was satisfied with the positioning of the tip of the guidewire and the general orientation for trajectory of the guidewire. The guidewire was then impacted easily with gentle taps of a mallet into the proximal femoral shaft. We confirmed in both AP and lateral projections that we were satisfied with the positioning of the pin for the entry reamer. We next ran the entry reamer over the guidewire under fluoroscopic control with a soft tissue protector to protect the musculature and soft tissues. We advanced the entry reamer down to the level of the lesser trochanter under fluoroscopic control. We next removed the entry reamer and guide pin. We next placed a ball-tipped long guidewire down through the opening in the tip of the greater trochanter and advanced that down into the proximal femur and then down the femoral shaft crossing the isthmus and entering the distal femoral shaft. We did appreciate due to the anterior femoral bowing deformity from the patient's multiple pathologic fractures that the tip of the guidepin was abutting the endosteal surface of the distal anterior femoral shaft. To us this represented that we would be impinging the distal end of the nail on the distal anterior femoral cortex due to the mismatch in the bowing radius of the deformed femur relative to the natural anterior bowing radius of the femoral nail. We did therefore advanced the guide pin only as far as we felt comfortable that we would be able to advance the nail into the femur. We checked positioning of the guidepin in both AP and lateral fluoroscopic projections to help make this determination for how far to place the ball-tipped guidewire into the distal femoral shaft. In this case we did and about 4-5 cm proximal to the superior pole of the patella. We used the measuring tool under fluoroscopic control to estimate the length of the ball-tipped guidewire located within the femur. In this case this measured 300 mm. We felt that we would only be comfortable with advancing a 280 mm length nail into the femur for fear that going any longer would impinge on the distal anterior femoral shaft causing an iatrogenic fracture by the tip of the nail at the distal femoral shaft. We therefore made the determination that we would place an 11 mm diameter nail of 200 mm length to internally splint the femur as best as possible without risking fracturing the distal femur. We next reamed sequentially in half millimeter increments very carefully under fluoroscopic control beginning with a 9 mm reamer and then reaming up to a 12.5 mm diameter reamer distally with the flexible reamer. We next ran a 13 mm reamer over the guidewire as well only as far as the isthmus to facilitate passing the nail through the isthmus and also allow us to try rotating the nail at the isthmus if needed as well as to try to reduce further stress with passage of the nail across the isthmus where there were multiple impending fractures. Once this was accomplished we rechecked our length measurement and confirmed that we would ultimately go with an 11 mm x 280 mm nail. We felt that a 130 nail geometry would be good. We assembled the gamma nail on to the supine non emergency services ambulance driver and then placed this over the ball-tipped guidewire so that the tip of the nail entered the tip of the opening at the top of the greater trochanter. We next very carefully and slowly advanced the femoral nail under fluoroscopic control until we had seated the nail to our desired depth of penetration distally which also worked out nicely proximally so that we could lock the nail proximally with a lag screw placed up into the femoral head and neck. Once we were satisfied with the depth of penetration and the overall position and length of the gamma nail within the femoral shaft we turned our attention towards placement of the lag screw into the femoral head and neck. We applied the double drill sleeve to the non emergency services ambulance driver and advanced that down to the skin. We dimple the skin and then ultimately made a small surgical incision with a scalpel into the skin and then dissected through the soft tissues down to the bone. We used a large Micaela clamp to spread the tissues and then we advanced the double drill sleeve down to the lateral femoral cortex and confirmed that it was in this position fluoroscopically. We next advanced the guidepin for the lag screw up through the lateral femoral cortex and then up through the intertrochanteric region of the hip and up into the femoral head and neck advancing the tip of the guidepin to the level of subchondral bone. We did reposition the guidepin a couple of times. We did ultimately except a position of the guidepin that was not true center center within the femoral head and neck. In this case the guidepin was center within the neck and very slightly anterior in the head. We felt that since there was no displaced unstable fracture involving the trochanteric region or subtrochanteric region or even the femoral shaft that the positioning of the lag screw slightly anterior to the center line of the femoral head would be acceptable. We took a depth gauge measurement and decided to go with a 95 mm lag screw. We reamed the bone over the guidepin under fluoroscopic control to the appropriate depth for placement of the 95 mm lag screw. The lag screw was manually advanced with the non emergency services ambulance driver over the guidepin under fluoroscopic control as well until he was satisfied with the depth of penetration and positioning of the lag screw within the femoral head and neck. We next secured the lag screw into the gamma nail by tightening the set screw maximally from above and then backing off by one quarter turn per protocol. We next removed the non emergency services ambulance driver from the nail leaving the nail and lag screw locking the proximal nail into the femoral head and neck in place. We obtained final AP and lateral fluoroscopic projections of the entire femur with the femoral scottie in place and with the lag screw locking the scottie proximally into the femoral head and neck. These images were saved for hard copy. Our attention was now directed towards closure. The wounds were copiously irrigated multiple times. The fascial layer was not repaired as the defect was quite deep but only rather small. We therefore repaired the subcutaneous tissues in layers with 0 Vicryl placed in interrupted buried fashion in the deeper subcutaneous tissues. The more superficial subcutaneous tissues were approximated using 2-0 Vicryl also placed in interrupted buried fashion. The skin margins were then approximated using a skin stapler. The wounds were washed and dried. Xeroform nonadherent dressings were applied over the staple lines followed by sterile gauze dressings and abdominal pads which were held in place with paper tape. The center board for the fracture table was placed back on to the fracture table. We took down the ipsilateral right leg from the traction boot. We also took down the contralateral well leg from the well leg nelson and placed both legs fully extended in supine position on the bed. Of note there was no rotational deformity or shortening of the right femur appreciated on [id number] comparison to the contralateral left lower extremity. The patient was awakened from general anesthesia. She was transferred to her hospital bed and then brought to the recovery room in stable condition having tolerated the procedure well. Findings: 1) Significant femoral shaft anterior bowing deformity. 2) Overall acceptable hardware position and fixation achieved. Discharge Disposition: PACU
--- NOTE | 2017-05-11 21:26 | RADIOLOGY REPORT ---
EXAMINATION: XR FEMUR, RIGHT CLINICAL INFORMATION: ORIF right femur COMPARISON: CT scan 2018 TECHNIQUE: Intraoperative fluoroscopic guidance provided to Dr. Tang. FLUOROSCOPY TIME: 2.08 minutes NUMBER OF IMAGES: 7 images FINDINGS: Intraoperative fluoroscopic spot images demonstrate placement of an intramedullary scottie with proximal interlocking dynamic hip screw across the previously seen incomplete lateral cortical mid femoral diaphyseal fractures. The fractures were well seen on the prior CT scan, not well demonstrated on the intraoperative spot films. There is central coarse calcification within the medullary cavity of the distal femoral diaphysis, most consistent with an enchondroma, as seen previously IMPRESSION: Intraoperative fluoroscopic spot imaging for ORIF of the right femur.
[2017-05-11 22:19] VITALS: BP 122/45
[2017-05-11 22:31] VITALS: BP 122/45
[2017-05-12 06:58] VITALS: BP 118/64
--- NOTE | 2017-05-12 10:30 | PN- Housestaff ---
See Addendum Subjective Follow-up For: Right femoral fracture Subjective: seen and examined laying comfortably in bed No compalins pain is adequately controlled. She denies SOB, CP, numbness, weakness Review of Systems Constitutional: Reports: see HPI. Objective Last 24 Hrs of Vital Signs/I&O Vital Signs Date Time Temp Pulse Resp B/P B/P Pulse O2 O2 Flow FiO2 Mean Ox Delivery Rate 05/12 0558 97.6 76 20 118/64 96 Room Air 05/11 2231 97.5 63 18 122/45 97 Room Air 05/11 1742 Room Air / 1413 98.3 60 19 110/56 94 Room Air Intake & Output 05/12 1600 05/12 0800 05/12 0000 Intake Total 900 940 Output Total 450 400 Balance 450 540 Intake, IV 420 940 Intake, Oral 480 Number 0 0 Bowel Movements Output, Urine 450 400 Physical Exam General Appearance: Alert, Oriented X3, Cooperative Other Physical Findings: Skin: Surgical scar and PM intact on L upper chest Cardiovascular: Regular Rate, Normal S1, Normal S2 Lungs: Clear to Auscultation, Normal Air Movement Extremities: R knee without warmth, swelling or ecchymosis Current Medications: Current Medications Sig/Brandon Start time Last Medication Dose Route Stop Time Status Admin Acetaminophen 650 MG Q6P PRN 05/11 2100 AC PO Acetaminophen 650 MG Q6P PRN 05/10 1630 DC PO Amlodipine Besylate 10 MG DAILY 05/12 1000 AC 05/12 PO 1044 Amlodipine Besylate 10 MG DAILY 05/10 1930 DC 05/11 PO 1001 Aspirin Buffered 325 MG DAILY 05/12 1000 AC 05/12 PO 1044 Aspirin Buffered 81 MG DAILY 05/10 1930 DC 05/11 PO 1001 Atorvastatin Calcium 10 MG 1700 05/12 1700 AC PO Atorvastatin Calcium 10 MG 1700 / 1930 DC / PO 1800 Cefazolin Sodium 1,000 MG Q8H 05/12 0200 DC 05/12 IV 05/12 1001 1042 Cholecalciferol 1,000 IU DAILY 05/12 1000 AC 05/12 PO 1045 Cholecalciferol 1,000 IU DAILY 05/11 1000 DC 05/11 PO 1001 Cyanocobalamin 250 MCG DAILY 05/12 1000 AC 05/12 PO 1043 Cyanocobalamin 250 MCG DAILY 04/06 1000 DC 04/ PO 1001 Dextrose/Sodium 1,000 ML Q20H 04/ 2100 AC 04/ Chloride IV 2151 Dextrose/Sodium 1,000 ML Q20H / 1415 DC 04/ Chloride IV 1411 Dextrose/Sodium 1,000 ML Q20H / 0745 DC 04/ Chloride IV 1002 Docusate Sodium 100 MG BID / 2200 AC PO Escitalopram Oxalate 5 MG DAILY 05/12 1000 AC / PO 1044 Escitalopram Oxalate 5 MG DAILY / 1930 DC 04/ PO 1001 Fentanyl Citrate 200 MCG .STK-MED ONE 05/11 1651 DC IM 05/11 1652 Heparin Sodium 5,000 UNIT Q8 05/10 2200 DC 05/11 (Porcine) SC 1411 Losartan Potassium 25 MG DAILY / 1000 AC / PO 1043 Losartan Potassium 25 MG DAILY / 1000 DC / PO 1002 Metoprolol Tartrate 25 MG DAILY 05/12 1000 AC 05/12 PO 1046 Metoprolol Tartrate 25 MG DAILY / 1930 DC 05/11 PO 1001 Morphine Sulfate 2 MG Q8P PRN / 2100 AC IV Morphine Sulfate 4 MG .STK-MED ONE 05/11 1651 DC IM 05/11 1652 Multivitamins 1 TAB DAILY 05/12 1000 AC / PO 1043 Multivitamins 1 TAB DAILY / 1000 DC / PO 1001 Oxycodone/ 1 TAB Q6P PRN / 2100 AC 05/12 Acetaminophen PO 0157 Patient Medication 1 ED ONE ONE 05/11 1430 DC Teaching ED 05/11 1431 Assessment/Plan Assessment: Mrs. Rangel is an 86-year-old female with past medical history of hypertension, hyperlipidemia, coronary artery disease status post triple bypass, PM who presents to the ED with progressively worsened right knee pain. Problem list: Right femoral fracture Plan: Ortho recommendations appreciated Cardio recommendations appreciated CT RE consistent with XR findings of femoral diaphysis fracture that can be seen with a bisphosphonate treatment > 3-5 yrs of use but patient currently not on biphosphonates. -underwent Intramedullary rodding of femoral shaft with Dr. Juarez yesterday -Pain control -PT eval -non weight bearing Diet: Heart healthy DVT prophylaxis: sc Heparin Problem List: 1. Right femoral fracture Pain Ratin Pain Location: r leg Pain Goal: Pain 4 or less Pain Plan: prn Tomorrow's Labs & Rationales: cbc bep
--- NOTE | 2017-05-12 12:38 | PN- Student ---
See Addendum Max Witt 05/12/17 1228: Subjective Subjective: PATIENT FEELING WELL, NO OVERNIGHT EVENTS. REPORTS PAIN IS WELL CONTROLLED. REPORTS MILD PARASPINOUS PAIN IN HER NECK WITH NO NUMBNESS OR TINGLING IN HER UPPER EXTREMITIES. EVALUATED BY PT AND ABLE TO GET OOB TO CHAIR WITH THEM. DENIES CHEST PAIN, SOB, HEADACHES, DIZZINESS, FEVER, CHILLS, AND PARESTHESIAS Objective Objective: Vital Signs Date Time Temp Pulse Resp B/P B/P Pulse O2 O2 Flow FiO2 Mean Ox Delivery Rate 05/12 0658 97.6 76 20 118/64 96 Room Air 05/11 2231 97.5 63 18 122/45 97 Room Air 05/11 1742 Room Air 05/11 1413 98.3 60 19 110/56 94 Room Air Intake & Output 05/12 1600 05/12 0800 05/12 0000 Intake Total 900 940 Output Total 450 400 Balance 450 540 Intake, IV 420 940 Intake, Oral 480 Number 0 0 Bowel Movements Output, Urine 450 400 GENERAL: RESTING COMFORTABLY IN BED, NAD, ACTIVELY PARTICIPATED IN EXAM CARDIAC: RRR, NO MRG PULM: CTAB, NO ACCESSORY MUSCLE USAGE ABDOMEN: NONTENDER, NONDISTENDED EXTREMITIES: RIGHT LEG WITHOUT EDEMA OR ERYTHEMA, DRESSING C/D/I, PNEUMATIC COMPRESSION DEVICES OFF, MOTOR AND SENSORY FUNCTION GROSSLY INTACT WITH RANGE OF MOTION OF THE HIP LIMITED BY INCISIONAL DISCOMFORT. 2+ DP PULSES BILATERALLY Laboratory Tests 05/11 05/10 0656 1452 Chemistry Sodium (137 - 145 mmol/L) 140 140 Potassium (3.5 - 5.1 mmol/L) 4.3 4.1 Chloride (98 - 107 mmol/L) 105 104 Carbon Dioxide (22 - 30 mmol/L) 26 25 Anion Gap (5 - 16) 10 12 BUN (7 - 17 mg/dL) 26 H 29 H Creatinine (0.5 - 1.0 mg/dL) 1.6 H 1.6 H Estimated GFR (>60 ml/min) 30 L 30 L BUN/Creatinine Ratio (7 - 25 %) 16.3 18.1 Glucose (65 - 99 mg/dL) 89 Calcium (8.4 - 10.2 mg/dL) 10.0 Total Bilirubin (0.2 - 1.3 mg/dL) 0.7 AST (14 - 36 U/L) 24 ALT (9 - 52 U/L) 15 Alkaline Phosphatase (<127 U/L) 99 Troponin I (< 0.11 ng/ml) < 0.01 Total Protein (6.3 - 8.2 g/dL) 7.4 Albumin (3.5 - 5.0 g/dL) 3.8 Globulin (1.9 - 4.2 gm/dL) 3.6 Albumin/Globulin Ratio (1.1 - 2.2 %) 1.1 Coagulation PT (9.4 - 12.5 SEC) 11.2 INR (0.90 - 1.19) 1.03 APTT (25 - 37 SEC) 27 Hematology CBC w Diff NO MAN DIFF REQ NO MAN DIFF REQ WBC (4.8 - 10.8 /CUMM) 5.3 7.4 RBC (4.20 - 5.40 /CUMM) 3.69 L 3.93 L Hgb (12.0 - 16.0 G/DL) 11.4 L 12.1 Hct (37 - 47 %) 34.1 L 36.3 L MCV (81.0 - 99.0 FL) 92.5 92.3 MCH (27.0 - 31.0 PG) 31.0 30.8 MCHC (33.0 - 37.0 G/DL) 33.5 33.4 RDW (11.5 - 14.5 %) 13.4 13.4 Plt Count (130 - 400 /CUMM) 177 202 MPV (7.4 - 10.4 FL) 8.7 8.2 Gran % (42.2 - 75.2 %) 57.4 71.6 Lymphocytes % (20.5 - 51.1 %) 21.4 16.3 L Monocytes % (1.7 - 9.3 %) 11.9 H 8.0 Eosinophils % (0 - 5 %) 8.2 H 3.8 Basophils % (0.0 - 2.0 %) 1.1 0.3 Absolute Granulocytes (1.4 - 6.5 /CUMM) 3.1 5.3 Absolute Lymphocytes (1.2 - 3.4 /CUMM) 1.1 L 1.2 Absolute Monocytes (0.10 - 0.60 /CUMM) 0.6 0.6 Absolute Eosinophils (0.0 - 0.7 /CUMM) 0.4 0.3 Absolute Basophils (0.0 - 0.2 /CUMM) 0.1 0 IMAGING: INTRAOPERATIVE FLUORO (05/11/17) FINDINGS: Intraoperative fluoroscopic spot images demonstrate placement of an intramedullary magalie with proximal interlocking dynamic hip screw across the previously seen incomplete lateral cortical mid femoral diaphyseal fractures. The fractures were well seen on the prior CT scan, not well demonstrated on the intraoperative spot films. There is central coarse calcification within the medullary cavity of the distal femoral diaphysis, most consistent with an enchondroma, as seen previously IMPRESSION: Intraoperative fluoroscopic spot imaging for ORIF of the right femur. Assessment/Plan Assessment: 87 Y/O FEMALE, PMH OF DEMENTIA, CAD W/ BYPASS, HTN, CRI, POD#1 S/P IM MAGALIE FOR FEMUR FRACTURE. PATIENT RECOVERING WELL FROM PROCEDURE. PAIN WELL CONTROLLED. TOLERATED PT EVAL WELL. DIMINISHED RENAL FUNCTION CONSISTENT WITH PRIOR EVALUATIONS. Plan: OOB TOLERATED DIET: HEART HEALTHY CONTINUE CURRENT PAIN MANAGEMENT PPX: ASA, PNEUMATIC COMPRESSION DEVICES, OOB APPRECIATE PT RECS, PLAN FOR STR (JESÚS WILLIAM) UPON DISCHARGE CONTINUE HOME MEDICATIONS F/U LABS Jenny Fenton 05/12/17 1318: Assessment/Plan Plan: Agree with above. WBAT with rolling walker. Progress per PT. Plan for STR.
[2017-05-12 14:43] VITALS: BP 114/56
[2017-05-12 17:16] LABS: ABSOLUTE BASOPHIL COUNT 0 /CUMM (0.0-0.2); ABSOLUTE EOSINOPHIL COUNT 0.1 /CUMM (0.0-0.7); ABSOLUTE LYMPH COUNT 0.8 /CUMM (1.2-3.4); BASOPHIL % 0.3 % (0.0-2.0); EOSINOPHIL % 1.1 % (0-5); MEAN CORPUSCULAR HGB 30.8 PG (27.0-31.0); RED BLOOD CELL CT 3.07 /CUMM (4.20-5.40)
[2017-05-12 17:18] LABS: ABSOLUTE GRANULOCYTE CT 5.1 /CUMM (1.4-6.5); ABSOLUTE MONOCYTE COUNT 0.8 /CUMM (0.10-0.60); GRANULOCYTE % 75.5 % (42.2-75.2); MEAN CORPUSCULAR HGB CONC 33.1 G/DL (33.0-37.0); MEAN CORPUSCULAR VOLUME 92.9 FL (81.0-99.0); MEAN PLATELET VOLUME 9.1 FL (7.4-10.4); PLATELET COUNT 110 /CUMM (130-400); RBC DISTRIBUTION WIDTH 13.6 % (11.5-14.5); WHITE BLOOD CELL COUNT 6.8 /CUMM (4.8-10.8)
[2017-05-12 17:20] LABS: HEMATOCRIT 28.5 % (37-47)
[2017-05-12 23:12] VITALS: BP 89/50
[2017-05-13 00:35] VITALS: BP 88/46
[2017-05-13 00:45] VITALS: BP 110/60
[2017-05-13 06:32] VITALS: BP 106/50
[2017-05-13 08:12] LABS: ABSOLUTE BASOPHIL COUNT 0 /CUMM (0.0-0.2); ABSOLUTE EOSINOPHIL COUNT 0.2 /CUMM (0.0-0.7); ABSOLUTE GRANULOCYTE CT 4.1 /CUMM (1.4-6.5); ABSOLUTE LYMPH COUNT 1.2 /CUMM (1.2-3.4); ABSOLUTE MONOCYTE COUNT 0.8 /CUMM (0.10-0.60); BASOPHIL % 0.6 % (0.0-2.0); EOSINOPHIL % 3.6 % (0-5); GRANULOCYTE % 64.4 % (42.2-75.2); HEMATOCRIT 25.5 % (37-47); MEAN CORPUSCULAR HGB 30.9 PG (27.0-31.0); MEAN CORPUSCULAR HGB CONC 33.4 G/DL (33.0-37.0); MEAN CORPUSCULAR VOLUME 92.5 FL (81.0-99.0); MEAN PLATELET VOLUME 8.4 FL (7.4-10.4); PLATELET COUNT 146 /CUMM (130-400); RBC DISTRIBUTION WIDTH 13.6 % (11.5-14.5); RED BLOOD CELL CT 2.76 /CUMM (4.20-5.40); WHITE BLOOD CELL COUNT 6.4 /CUMM (4.8-10.8)
--- NOTE | 2017-05-13 12:00 | PN- Orthopedic ---
See Addendum Subjective Subjective: pt sitting in chair, min pain when sitting but signif pain with ambulation while working with PT today. deneis paresthesias. voiding, no bm. tolerating diet deneis fevers/cp/sob/worley Objective Vital Signs and I&Os Vital Signs Date Time Temp Pulse Resp B/P B/P Pulse O2 O2 Flow FiO2 Mean Ox Delivery Rate 05/13 0834 106/60 05/13 0833 106/60 05/13 0833 106/60 05/13 0632 98.1 76 18 106/50 94 Room Air 05/13 0045 110/60 05/13 0035 88/46 05/12 2312 98.4 75 20 89/50 96 Room Air 05/12 1443 98.3 68 20 114/56 98 Room Air Intake & Output 05/13 1600 05/13 0800 05/13 0000 05/12 1600 05/12 0805/12 0000 Intake Total 066 214 5776 900 940 Output Total 250 350 450 400 Balance 230 -100 2280 450 540 Intake, IV 0 10 480 420 940 Intake, Oral 208 025 3543 480 Number 0 0 0 0 Bowel Movements Output, Urine 250 350 450 400 Physical Exam: gen- NAD resp- clear cariac-rrr abd- soft, nt ext- right hip dressing changed, boaz in place with surrounding ecchymosis. no signs of infection. hip is soft. distal sensory and motor function intact. 2+PT pulse bilaterally Current Medications: Current Medications Sig/Brandon Start time Last Medication Dose Route Stop Time Status Admin Acetaminophen 1,000 MG Q6P PRN 05/13 1215 UNVr N/A 1 UNIT IV Acetaminophen 650 MG Q6P PRN 05/11 2100 AC PO Amlodipine Besylate 10 MG DAILY 05/12 1000 AC 05/13 PO 0934 Aspirin Buffered 325 MG DAILY 05/12 1000 AC 05/13 PO 0933 Atorvastatin Calcium 10 MG 1700 05/12 1700 AC 05/12 PO 1744 Cholecalciferol 1,000 IU DAILY 05/12 1000 AC 05/13 PO 0934 Cyanocobalamin 250 MCG DAILY 05/12 1000 AC 05/13 PO 0934 Dextrose/Sodium 1,000 ML Q20H 05/11 2100 DC 05/11 Chloride IV 2151 Docusate Sodium 100 MG BID 05/11 2200 AC 04/08 PO 0933 Escitalopram Oxalate 5 MG DAILY 05/12 1000 AC 05/13 PO 0933 Heparin Sodium 5,000 UNIT Q8 05/13 1400 UNVr (Porcine) SC Heparin Sodium 5,000 UNIT Q8 05/12 2200 CAN (Porcine) SC Losartan Potassium 25 MG DAILY 05/12 1000 AC 05/13 PO 0933 Metoprolol Tartrate 25 MG DAILY 05/12 1000 AC 05/13 PO 0933 Morphine Sulfate 2 MG Q8P PRN 05/11 2100 AC IV Multivitamins 1 TAB DAILY 05/12 1000 AC 05/13 PO 0934 Oxycodone HCl 5 MG Q6 PRN 05/13 1215 UNVr PO Oxycodone/ 1 TAB Q6P PRN 05/11 2100 DC 05/13 Acetaminophen PO 0933 Polyethylene Glycol 17 GM DAILY 05/13 1201 UNVr PO Results Last 48 Hours of Labs: Laboratory Tests 05/13 05/12 0728 1626 Chemistry Sodium (137 - 145 mmol/L) 136 L 135 L Potassium (3.5 - 5.1 mmol/L) 4.1 4.3 Chloride (98 - 107 mmol/L) 102 100 Carbon Dioxide (22 - 30 mmol/L) 25 26 Anion Gap (5 - 16) 9 9 BUN (7 - 17 mg/dL) 23 H 20 H Creatinine (0.5 - 1.0 mg/dL) 1.6 H 1.4 H Estimated GFR (>60 ml/min) 30 L 35 L BUN/Creatinine Ratio (7 - 25 %) 14.4 14.3 Hematology CBC w Diff NO MAN DIFF REQ NO MAN DIFF REQ WBC (4.8 - 10.8 /CUMM) 6.4 6.8 RBC (4.20 - 5.40 /CUMM) 2.76 L 3.07 L Hgb (12.0 - 16.0 G/DL) 8.5 L 9.4 L Hct (37 - 47 %) 25.5 L 28.5 L MCV (81.0 - 99.0 FL) 92.5 92.9 MCH (27.0 - 31.0 PG) 30.9 30.8 MCHC (33.0 - 37.0 G/DL) 33.4 33.1 RDW (11.5 - 14.5 %) 13.6 13.6 Plt Count (130 - 400 /CUMM) 146 110 L MPV (7.4 - 10.4 FL) 8.4 9.1 Gran % (42.2 - 75.2 %) 64.4 75.5 H Lymphocytes % (20.5 - 51.1 %) 19.0 L 11.7 L Monocytes % (1.7 - 9.3 %) 12.4 H 11.4 H Eosinophils % (0 - 5 %) 3.6 1.1 Basophils % (0.0 - 2.0 %) 0.6 0.3 Absolute Granulocytes (1.4 - 6.5 /CUMM) 4.1 5.1 Absolute Lymphocytes (1.2 - 3.4 /CUMM) 1.2 0.8 L Absolute Monocytes (0.10 - 0.60 /CUMM) 0.8 H 0.8 H Absolute Eosinophils (0.0 - 0.7 /CUMM) 0.2 0.1 Absolute Basophils (0.0 - 0.2 /CUMM) 0 0 Assessment/Plan Assessment/Plan 87yo F SP R IM scottie for proximal femur fracture POD2. stable from surgical standpoint PT-WBAT with walker pain management- try to limit narcotic d/t pt age and lack of bowel function post-operatively rec bowel regimen dvt ppx- asa, alps, ambulation reg diet plan for STR Core Measures Venous Thromboembolism VTE Risk Factors Age>40 No Mechanical VTE Prophylaxis d/t N/A MechProphylax Ordered No VTE Pharm Prophylaxis d/t NA PharmProphylax ordered
--- NOTE | 2017-05-13 12:24 | PN- Housestaff ---
See Addendum Subjective Follow-up For: Right femoral fracture Complaints: pain during ambulation Subjective: seen and examined laying comfortably in bed.C/o pain during ambulation. Has walked with PT.Has not had a bowel movement. She denies SOB, CP, numbness, weakness Review of Systems Constitutional: Reports: no symptoms. EENTM: Reports: no symptoms. Cardiovascular: Reports: no symptoms. Respiratory: Reports: no symptoms. Genitourinary: Reports: no symptoms. Musculoskeletal: Reports: joint pain, muscle pain, muscle stiffness. Skin: Reports: no symptoms. Objective Last 24 Hrs of Vital Signs/I&O Vital Signs Date Time Temp Pulse Resp B/P B/P Pulse O2 O2 Flow FiO2 Mean Ox Delivery Rate 05/13 0934 106/60 05/13 0933 106/60 05/13 0933 106/60 05/13 0632 98.1 76 18 106/50 94 Room Air 05/13 0045 110/60 05/13 0035 88/46 05/12 2312 98.4 75 20 89/50 96 Room Air 05/12 1443 98.3 68 20 114/56 98 Room Air Intake & Output 05/13 1600 05/13 0800 05/13 0000 Intake Total 480 250 Output Total 250 350 Balance 230 -100 Intake, IV 0 10 Intake, Oral 480 240 Number 0 0 Bowel Movements Output, Urine 250 350 Physical Exam General Appearance: Alert, Oriented X3, Cooperative, No Acute Distress Skin: No Rashes Skin Temp/Moisture Exam: Warm/Dry Sepsis Skin Exam (color): Normal for Ethnicity HEENT: Atraumatic, PERRLA, EOMI Neck: Supple, No JVD Cardiovascular: Regular Rate, Normal S1, Normal S2 Lungs: Normal Air Movement Abdomen: Normal Bowel Sounds, Soft Extremities: right hip dressings changes. No erythema,or ecchymosis Vascular: Normal Pulses, Pulses Symmetrical Current Medications: Current Medications Sig/Brandon Start time Last Medication Dose Route Stop Time Status Admin Acetaminophen 1,000 MG Q6P PRN 05/13 1215 AC N/A 1 UNIT IV Acetaminophen 650 MG Q6P PRN 05/11 2100 AC PO Amlodipine Besylate 10 MG DAILY 05/12 1000 AC 05/13 PO 0934 Aspirin Buffered 325 MG DAILY 05/12 1000 AC 05/13 PO 0933 Atorvastatin Calcium 10 MG 1700 05/12 1700 AC 05/12 PO 1744 Cholecalciferol 1,000 IU DAILY 05/12 1000 AC 05/13 PO 0934 Cyanocobalamin 250 MCG DAILY 05/12 1000 AC 05/13 PO 0934 Dextrose/Sodium 1,000 ML Q20H 05/11 2100 DC 05/11 Chloride IV 2151 Docusate Sodium 100 MG BID 05/11 2200 AC 05/13 PO 0933 Escitalopram Oxalate 5 MG DAILY 05/12 1000 AC 05/13 PO 0933 Heparin Sodium 5,000 UNIT Q8 05/13 1400 AC (Porcine) SC Heparin Sodium 5,000 UNIT Q8 05/12 2200 CAN (Porcine) SC Losartan Potassium 25 MG DAILY 05/12 1000 AC 05/13 PO 0933 Metoprolol Tartrate 25 MG DAILY 05/12 1000 AC 05/13 PO 0933 Morphine Sulfate 2 MG Q8P PRN 05/11 2100 AC IV Multivitamins 1 TAB DAILY 05/12 1000 AC 05/13 PO 0934 Oxycodone HCl 5 MG Q6 PRN 05/13 1215 AC PO Oxycodone/ 1 TAB Q6P PRN 05/11 2100 DC 05/13 Acetaminophen PO 0933 Polyethylene Glycol 17 GM DAILY 05/13 1201 AC PO Assessment/Plan Assessment: Mrs. Rangel is an 86-year-old female with past medical history of hypertension, hyperlipidemia, coronary artery disease status post triple bypass, PM who presents to the ED with progressively worsened right knee pain. Problem list: Right femoral fracture Plan: S/p IM scottie for proximal femur fracture POD2 Bowel regime ordered Pain control with iv tylenol and oxycodone PT working with patient reg diet dvt ppx- asa, alps Plan for STR on Sunday Patient needs to be on bisphosphonates given osteoporosis on DEXA Problem List: 1. Right femoral fracture Pain Ratin Pain Location: right leg pain Pain Goal: Pain 4 or less Pain Plan: oxycodone tylenol Tomorrow's Labs & Rationales: cbc
--- NOTE | 2017-05-13 12:51 | Discharge Summary ---
Visit Information Visit Dates Admission Date: 05/10/17 Discharge Date: 05/14/17 Hospital Course Course Attending Physician: Eva Montiel MD Primary Care Physician: Jermain ZIMMERMAN,Whit Hospital Course: Mrs. Rangel is an 86-year-old female with past medical history of hypertension, hyperlipidemia, coronary artery disease status post triple bypass, PM who presents to the ED with progressively worsening right knee pain. X-ray done on the ER showed diffuse osteoporosis and insufficiency fractures involving lateral cortex of mid right femoral diaphysis. Hospital course: Right femoral fracture: Patient underwent intramedullary scottie placement by on 05/11/2017. Postoperatively patient did well. Pain control was achieved through IV Tylenol and oxycodone. Bowel regime was ordered. Physical therapy worked with patient. H&H remained stable post surgery. Patient was discharged to [facility] for rehabilitation. Patient needs to follow up with PCP and orthopedic within 1 week of discharge. Osteoporosis: DEXA scan done in 2017 showed Osteoporosis based on the lowest T- score value of -2.6. Patient had diffuse osteoporosis's on x-ray with insufficiency fractures. She needs to be started on bisphosphonate for it. Recommend follow-up with PCP upon discharge. Follow-up DEXA in 2 years. Allergies: Coded Allergies: NO KNOWN ALLERGIES (02/20/12) Pertinent Lab Results: 05/10/17-1302 XRY-FEMUR, 2 VIEWS RIGHT; XRY-KNEE, RIGHT IMPRESSION: 1. Diffuse osteoporosis. 2. Incomplete insufficiency fractures involving lateral cortex of the mid right femoral diaphysis. 3. Minimal osteoarthrosis of patellofemoral and tibiofemoral compartments of the right knee. 05/10/17-1543 EXAM TYPE: CAT - CT LOWER EXT WO IV CONTRAST IMPRESSION: 1. Incomplete osseous fractures of the lateral cortex of the mid femoral diaphysis, compatible with insufficiency fractures. This can be seen with a bisphosphonate treatment. 2. Mild right hip joint arthritis. Mild right SI joint arthritis. 3. Mild to moderate tricompartment arthritis right knee. 05/11/17- EXAM TYPE: RAD - XRY-FEMUR, 2 VIEWS RIGHT IMPRESSION: Intraoperative fluoroscopic spot imaging for ORIF of the right femur. Disposition Summary Disposition Principal Diagnosis: Right femoral fracture Additional Diagnosis: Osteoporosis Discharge Disposition: SNF Discharge Instructions General Discharge Information Code Status: Do Not Resucitate/Intubat Patient's Diet: Heart healthy diet Patient's Activity: As per orthopedic instructions. Follow-Up Instructions/Appts: Please follow-up with orthopedics post discharge Please follow-up with your PCP within 1 week of discharge. Medications at Discharge Discharge Medications: Continue taking these medications: Aspirin (Ecotrin*) 81 MG TABLET.DR 1 Tablet ORAL DAILY Cranberry (Cranberry) 400 MG CAPSULE 2 Tablet ORAL DAILY Escitalopram Oxalate (Lexapro) 5 MG TABLET 5 Milligram ORAL DAILY Simvastatin (Zocor*) 20 MG TABLET 1 Tablet ORAL DAILY Losartan Potassium (Losartan Potassium) 25 MG TABLET 1 Tablet ORAL DAILY Qty = 90 Cholecalciferol (Vitamin D3) 1,000 UNIT TABLET 1 Tablet ORAL DAILY Cyanocobalamin (Vitamin B-12) 1,000 MCG TABLET 1 Tablet ORAL DAILY Amlodipine Besylate (Amlodipine Besylate) 10 MG TABLET 1 Tablet ORAL DAILY Qty = 90 Metoprolol Tartrate (Metoprolol Tartrate) 25 MG TABLET 1 Tablet ORAL DAILY Qty = 30 Start taking the following new medications: Acetaminophen (Tylenol) 325 MG TABLET 650 Milligram ORAL EVERY SIX HOURS NEEDED as needed for PAIN SCALE 1-3 ( MILD) Qty = 28 No Refills Multivitamin (One Daily Multivitamin) 1 EACH TABLET 1 Tablet ORAL DAILY Qty = 30 No Refills Oxycodone HCl (Oxycodone HCl) 5 MG TABLET 5 Milligram ORAL Every 6-8 Hours as Needed as needed for PAIN SCALE 4-6 ( MODERATE) Qty = 10 No Refills Copies To: Jermain ZIMMERMAN,Whit; Kitty ZIMMERMAN,Amadeo Lombardi MD Review Statement Documenting Attending: Eva Montiel MD Other Findings: Patient is medically stable to be discharged today.
[2017-05-13 14:29] VITALS: BP 110/60
[2017-05-13 21:42] VITALS: BP 108/62
[2017-05-14 06:36] VITALS: BP 136/50
--- NOTE | 2017-05-14 07:15 | PN- Housestaff ---
See Addendum Subjective Follow-up For: R femoral diaphysis fracture s/p ORIF Subjective: No complaints or acute events overnight. She denies CP, SOB, palpitations, pain Review of Systems Constitutional: Reports: see HPI. Objective Last 24 Hrs of Vital Signs/I&O Vital Signs Date Time Temp Pulse Resp B/P B/P Pulse O2 O2 Flow FiO2 Mean Ox Delivery Rate 05/14 1101 120/50 05/14 1101 120/50 05/14 1100 120/50 05/14 0636 98.3 86 20 136/50 93 Room Air 05/13 2142 97.9 72 18 108/62 94 Room Air 05/13 1429 97.9 70 20 110/60 92 Room Air Intake & Output 05/14 1600 05/14 0800 05/14 0000 Intake Total 240 240 Output Total 575 300 Balance -335 -60 Intake, Oral 240 240 Output, Urine 575 300 Physical Exam General Appearance: Alert, Oriented X3, Cooperative, No Acute Distress Cardiovascular: Normal S1, Normal S2 Lungs: Clear to Auscultation, Normal Air Movement Abdomen: Normal Bowel Sounds, Soft, No Tenderness Extremities: R lateral surgical site with minimal ecchymosis. No hematoma or drainage visualized. Assessment/Plan Assessment: Mrs. Rangel is an 86-year-old female with past medical history of hypertension, hyperlipidemia, coronary artery disease status post triple bypass, PM who presents to the ED with progressively worsened right knee pain. Problem list: Right femoral fracture s/p ORIF POD 3 Plan: H&H stable, no need for transfusion Ortho recommendations appreciated Cardio recommendations appreciated CT RE consistent with XR findings of femoral diaphysis fracture that can be seen with a bisphosphonate treatment > 3-5 yrs of use but patient currently not on biphosphonates Stable for dc to STR Diet: Heart healthy DVT prophylaxis: sc Heparin Code: DNR/I Problem List: 1. Right femoral fracture Pain Ratin Pain Location: NA Pain Goal: Remain pain free Pain Plan: Oxycodone and Tylenol Tomorrow's Labs & Rationales: none
--- NOTE | 2017-05-14 08:05 | PN- Orthopedic ---
See Addendum Subjective Subjective: Pt appearing pale, complaining of fatigue. States only has leg pain when moving. Denies chest pain, shortness of breath and difficulty breathing. Denies nausea and vomitting. Has been tolerating po. Has been passing flatus, no bm yet. Objective Vital Signs and I&Os Vital Signs Date Time Temp Pulse Resp B/P B/P Pulse O2 O2 Flow FiO2 Mean Ox Delivery Rate 05/15 635 98.3 86 20 136/50 93 Room Air 05/13 2142 97.9 72 18 108/62 94 Room Air 05/13 1429 97.9 70 20 110/60 92 Room Air 05/13 0934 106/60 05/13 0933 106/60 05/13 0933 106/60 Intake & Output 05/14 0805/14 0000 05/13 1600 05/13 0800 05/13 0000 05/12 1600 Intake Total 240 240 700 212 038 6840 Output Total 575 300 650 250 350 Balance -335 -60 50 230 -100 2280 Intake, IV 0 0 10 480 Intake, Oral 240 240 700 387 736 6814 Number 0 0 0 Bowel Movements Output, Urine 575 300 650 250 350 Physical Exam: General: Alert and oriented x3, no acute distress. Appears fatigued. Pale Cardiac: RRR, s1s2 Pulm: CTA bialterally, non-labored respiratory effort Abdomen: Non-tender, non-distended Extremities: Moves all extremities, distal sensation grossly intact. Incision clean and dry, some surrounding ecchymosis noted especially posterior. Thigh compartment soft. Bilateral calves soft and non-tender. Distal pulses palpable. Assessment/Plan Assessment/Plan This is a 87 year old female POD 3 s/p IM scottie R femur for fracture, ?pathologic. Appears anemic presenlty. CBC has been down trending with regard to H/H -Continue to monitor labs, f/u cbc today, consider pRBC transfusion if worsens, pt appears pale and is fatigued -Activity: WBAT -Wound care: Daily dressing changes -DVT ppx: ASA 325 daily -Give bowel regimen -Ortho stable, anticipate dc to str when medically optimized Will discuss poc with Dr. Juarez
[2017-05-14 09:49] LABS: ABSOLUTE BASOPHIL COUNT 0 /CUMM (0.0-0.2); ABSOLUTE EOSINOPHIL COUNT 0.3 /CUMM (0.0-0.7); ABSOLUTE GRANULOCYTE CT 5.3 /CUMM (1.4-6.5); ABSOLUTE LYMPH COUNT 0.8 /CUMM (1.2-3.4); ABSOLUTE MONOCYTE COUNT 0.6 /CUMM (0.10-0.60); BASOPHIL % 0.4 % (0.0-2.0); EOSINOPHIL % 3.8 % (0-5); GRANULOCYTE % 75.8 % (42.2-75.2); HEMATOCRIT 25.4 % (37-47); MEAN CORPUSCULAR HGB 31.2 PG (27.0-31.0); MEAN CORPUSCULAR HGB CONC 33.5 G/DL (33.0-37.0); MEAN PLATELET VOLUME 8.6 FL (7.4-10.4); PLATELET COUNT 160 /CUMM (130-400); RBC DISTRIBUTION WIDTH 13.4 % (11.5-14.5); RED BLOOD CELL CT 2.73 /CUMM (4.20-5.40)
[2017-05-14] MEDS ORDERED: OXYCODONE HCL5 M1 PO (10:42)
--- NOTE | 2017-05-14 13:23 | PN- Cardiology ---
Subjective Subjective: * Doing well post-op. Not much of an appetite. Minimal shortness of breath upon ambulation but no chest discomfort. * creatinine 1/6 * decreasing H/H Objective Vital Signs and I&Os Vital Signs Date Time Temp Pulse Resp B/P B/P Pulse O2 O2 Flow FiO2 Mean Ox Delivery Rate 05/14 1222 Room Air 05/14 1101 120/50 05/14 1101 120/50 05/14 1100 120/50 05/14 0636 98.3 86 20 136/50 93 Room Air 05/13 2142 97.9 72 18 108/62 94 Room Air 05/13 1429 97.9 70 20 110/60 92 Room Air Intake & Output 05/14 1600 05/14 0805/14 0000 05/13 1600 05/13 0000 Intake Total 240 240 700 480 250 Output Total 575 300 650 250 350 Balance -335 -60 50 230 -100 Intake, IV 0 0 10 Intake, Oral 240 240 700 480 240 Number 0 0 0 Bowel Movements Output, Urine 575 300 650 250 350 Physical Exam: General: WD/WN female in NAD; alert and oriented x 3 Neck: no JVD, no carotid bruit Heart: RRR without murmur Lungs: clear bilaterally Abdomen: soft, NT, +ve bowel sounds Extremities: no edema Assessment/Plan Assessment/Plan * Patient is doing well without any evidence of myocardial ischemia or decompensated CHF. She likely has some shortness of breath upon ambulation due to deconditioning and moderate anemia. Follow her H/H. Okay for short term rehab from a cardiac perspective. Continue telemetry? No
[2017-05-14 14:22] VITALS: BP 122/60
[2017-05-14 15:07] VITALS: BP 122/60
== END 2017-05-14 16:45 | DRG 482 ==
LOC: ERH 11:11 → 2NB 15:41 → ERHI 15:41 → ENRESERV 16:42 → ENTRNSPT 17:08 → EDTRNSPTSTS 17:18 → EDTRNSPT 17:18 → 2NB 17:21 → CMPTRNSPT 17:34 → ENTRNSPT 05-11 20:42 → CMPTRNSPT 05-11 21:06 → ENPENDDIS 05-14 11:01 → 2NB 05-14 16:45
PROVIDERS: Internal Medicine; Physician Assistant; Student in an Organized Health Care Education/Training Program
PROC: 0QS806Z Reposition Right Femoral Shaft with Intramedullary Internal Fixation Device, Open Approach (ICD-10-PCS; principal; 2017-05-11)
DX: M80.851A Other osteoporosis with current pathological fracture, right femur, initial encounter for fracture (principal); I27.20 Pulmonary hypertension, unspecified; D64.9 Anemia, unspecified; F03.90 Unspecified dementia, unspecified severity, without behavioral disturbance, psychotic disturbance, mood disturbance, and anxiety; N18.3 Chronic kidney disease, stage 3 (moderate); Z95.1 Presence of aortocoronary bypass graft; E78.5 Hyperlipidemia, unspecified; I10 Essential (primary) hypertension; I25.10 Atherosclerotic heart disease of native coronary artery without angina pectoris; Z95.0 Presence of cardiac pacemaker; I12.9 Hypertensive chronic kidney disease with stage 1 through stage 4 chronic kidney disease, or unspecified chronic kidney disease; Z79.82 Long term (current) use of aspirin; M19.90 Unspecified osteoarthritis, unspecified site; Z66 Do not resuscitate; K59.00 Constipation, unspecified
CPT/HCPCS: 2NSBP; 36415; 36592; 73552; 73560-RT; 82436; 93005; 93010; 97110-GO; 97116-GO; 97161-GP; 97530-GO; J0131; J0690; J1644; J7042